=== PATIENT | male | born 1940 | race Caucasian/White ===

== ENCOUNTER 2017-12-28 13:26 | Inpatient (IN) ==
--- NOTE | 2017-12-27 18:08 | Discharge Summary ---
<Danni Delgado E - Last Filed: 12/27/17 18:05> Date of Encounter: 12/27/17 - Discharge Diagnosis (1) Status post total left knee replacement Priority: Primary Status: Acute (2) Arthritis of left knee Priority: Primary Status: Chronic (3) HTN (hypertension) Priority: Secondary Status: Chronic Qualifiers: Hypertension type: unspecified Qualified Code(s): I10 - Essential (primary ) hypertension (4) CAD (coronary artery disease) Priority: Secondary Status: Chronic Qualifiers: Coronary Disease-Associated Artery/Lesion type: unspecified vessel or lesion type [place] vs. transplanted heart: unspecified whether marshall or transplanted heart Associated angina: angina presence unspecified Qualified Code(s): I25.10 - Atherosclerotic heart disease of marsh[place] coronary artery without angina pectoris (5) History of coronary artery stent placement Priority: Secondary Status: Chronic (6) Carotid artery disease Priority: Secondary Status: Chronic Qualifiers: Laterality: unspecified laterality Qualified Code(s): I77.9 - Disorder of arteries and arterioles, unspecified (7) CKD (chronic kidney disease) Priority: Secondary Status: Chronic Qualifiers: Chronic kidney disease stage: stage 3 (moderate) Qualified Code(s): N18.3 - Chronic kidney disease, stage 3 (moderate) (8) Chronic atrial fibrillation Priority: Secondary Status: Chronic (9) Gout Priority: Secondary Status: Chronic Qualifiers: Gout site: unspecified site Gout etiology: unspecified cause Chronicity: unspecified Qualified Code(s): M10.9 - Gout, unspecified (10) History of CHF (congestive heart failure) Priority: Secondary Status: Chronic (11) History of pulmonary hypertension Priority: Secondary Status: Chronic (12) History of TIA (transient ischemic attack) Priority: Secondary Status: Chronic (13) alf current use of anticoagulant Status: Acute (14) Insulin dependent diabetes mellitus Priority: Secondary Status: 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 Camlio is a 77 year old male - Time Spent with Patient Total time spent providing and/or coordinating discharge services: - Discharge Medications Prescriptions: Oxycodone HCl 5 mg PO Q6H PRN 7 Days #28 tablet PRN Reason: Severe Pain Home Medications: Metoprolol XL (24 HR) Succ [Toprol Xl] 50 mg PO DAILY 08/03/15 [History] Nitroglycerin 0.4 mg SL Q5MIN PRN #30 tab.subl 08/04/15 [Rx] Cholecalciferol (D-3) [Vitamin D] 5,000 unit PO DAILY 03/31/17 [History] [place]-3/Dha/Epa/Fish Oil [Fish Oil 1,000 mg Softgel] 2 each PO BID 03/31/17 [ History] Oxycodone HCl 5 mg PO Q6H PRN 7 Days #28 tablet 12/27/17 [Rx] Allopurinol [Zyloprim] 300 mg PO HS 12/28/17 [History] Aspirin Enteric Coated [Aspirin EC] 81 mg PO DAILY 12/28/17 [History] Benazepril HCl [Lotensin] 20 mg PO DAILY 12/28/17 [History] Enoxaparin [Lovenox] 120 mg SQ Q12H 12/28/17 [History] Insulin Glargine [Lantus] 30 unit SQ QAM 12/28/17 [History] Insulin Glargine [Lantus] 50 unit SQ QPM 12/28/17 [History] Insulin LISPRO [HumaLOG] 15 - 20 unit SQ TID 12/28/17 [History] Latanoprost [Xalatan] 1 drop OP HS 12/28/17 [History] Meclizine [Antivert] 12.5 mg PO DAILY PRN 12/28/17 [History] Warfarin Sodium 6 mg PO SUTUWETHFRSA 12/28/17 [History] Warfarin [Coumadin] 3 mg PO MO 12/28/17 [History] cloNIDine HCl [Clonidine HCl] 0.3 mg PO BID 12/28/17 [History] Allergies/Adverse Reactions: 3 Allergy/AdvReac Type Severity Reaction Status Date / Time insulin lispro [From Humalog] Allergy Itching Verified 12/21/17 08:55 rosuvastatin [From Crestor] Allergy LEGS HURT Verified 12/28/17 14:31 Primary care physician: Doc Salazar DO - Patient Status Disposition: Home, Self-Care Condition: Good - Discharge Instructions Follow Up With: Doc Salazar DO [Primary Care Provider] - <Jayesh Avina - Last Filed: 12/29/17 06:17> Orders not resulted at time of discharge: Pending orders 12/28/17 01:00 XR knee LT limited 1-2V [XR] Routine Hemoglobin and Hematocrit [HEME] Routine Date of Encounter: 12/29/17 Time of Encounter: 06:17 - Discharge Diagnosis (1) Atrial fibrillation with normal ventricular rate Priority: Secondary Status: Chronic (2) Insulin dependent diabetes mellitus Priority: Secondary Status: Chronic (3) HTN (hypertension) Priority: Secondary Status: Chronic Qualifiers: Hypertension type: unspecified Qualified Code(s): I10 - Essential (primary ) hypertension (4) HLD (hyperlipidemia) Priority: Secondary Status: Chronic Qualifiers: Hyperlipidemia type: unspecified Qualified Code(s): E78.5 - Hyperlipidemia , unspecified (5) CKD (chronic kidney disease) stage 3, GFR 30-59 ml/min Priority: Secondary Status: Chronic (6) CAD (coronary artery disease) Priority: Secondary Status: Chronic Qualifiers: Coronary Disease-Associated Artery/Lesion type: [place] artery [place] vs. transplanted heart: marshall heart Associated angina: with unstable angina Qualified Code(s): I25.110 - Atherosclerotic heart disease of [place] coronary artery with unstable angina pectoris (7) HTN (hypertension) Priority: Secondary Status: Chronic Qualifiers: Hypertension type: unspecified Qualified Code(s): I10 - Essential (primary ) hypertension (8) History of coronary artery stent placement Priority: Secondary Status: Chronic (9) Carotid artery disease Priority: Secondary Status: Chronic Qualifiers: Laterality: unspecified laterality Qualified Code(s): I77.9 - Disorder of arteries and arterioles, unspecified (10) Gout Priority: Secondary Status: Chronic Qualifiers: Gout site: unspecified site Gout etiology: unspecified cause Chronicity: unspecified Qualified Code(s): M10.9 - Gout, unspecified (11) History of CHF (congestive heart failure) Priority: Secondary Status: Chronic (12) History of pulmonary hypertension Priority: Secondary Status: Chronic (13) History of TIA (transient ischemic attack) Priority: Secondary Status: Chronic (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 Camilo is a 77 year old male Status post left total knee replacement The patient had an uneventful postoperative course. They received antibiotics and physical therapy and were discharged in stable condition. There will follow -up in the office in 2 weeks. - Time Spent with Patient Total time spent providing and/or coordinating discharge services: Primary care physician: Doc Salazar, Labs on day of discharge: Labs from last 24 hours 12/28/17 13:37 POC Glucose 171 H - Patient Status Functional capacity at discharge: uses cane/walker Overall status at discharge: patient is progressing back to baseline
--- NOTE | 2017-12-27 18:20 | Physician Discharge Referral ---
Home Health/Hosp Referral Info Transfer to: Home Health Attending Provider: Dr. Jayesh Avina - Diagnosis (1) Status post total left knee replacement Priority: Primary Status: Acute (2) Arthritis of left knee Priority: Primary Status: Chronic (3) HTN (hypertension) Priority: Secondary Status: Chronic (4) CAD (coronary artery disease) Priority: Secondary Status: Chronic (5) History of coronary artery stent placement Priority: Secondary Status: Chronic (6) Carotid artery disease Priority: Secondary Status: Chronic (7) CKD (chronic kidney disease) Priority: Secondary Status: Chronic (8) Chronic atrial fibrillation Priority: Secondary Status: Chronic (9) Gout Priority: Secondary Status: Chronic (10) History of CHF (congestive heart failure) Priority: Secondary Status: Chronic (11) History of pulmonary hypertension Priority: Secondary Status: Chronic (12) History of TIA (transient ischemic attack) Priority: Secondary Status: Chronic (13) half-way current use of anticoagulant Priority: Secondary Status: Acute (14) Insulin dependent diabetes mellitus Priority: Secondary Status: Chronic - Respiratory Orders Smoking Cessation: Smoking cessation has been advised. For more information, call the [place] Tobacco Quit Line at 8-360-CDNE-NOW. - Dressing/Wound Care Site: Left knee Type of Dressing/Treatments w/Frequency: Opsite placed. Keep dressing intact until first follow up appointment. If greater than 50% saturated, notify office, remove dressing and place appropriate dressing back in place. Leave Zipline intact. Opsite dressing is water resistant, not water-proof. OK to shower, but do not get dressing wet. - Diet/Nutrition Diet/Nutrition Orders: Regular - Activity Activity Orders: Up ad page, Ambulate, Chair, Walker Activity: List: Total Knee replacement Precautions x 6 weeks Apply cold therapy wrap 3-6x/day for 20 minutes at a time. Encourage ambulation throughout the day and incentive spirometer 10x/hour. Elevate affected extremity above heart as tolerated. Brace: Wear knee immobilizer at night x 2 weeks. - Services Needed Following services are medically necessary services: Nursing, Home Health Aide, Physical Therapy, Occupational Therapy - Transfer Medications Prescriptions: Oxycodone HCl 5 mg PO Q6H PRN 7 Days #28 tablet PRN Reason: Severe Pain Home Medications: Aspirin [Adult Low Dose Aspirin EC] 81 mg PO DAILY 08/03/15 [History] CloNIDine HCl [Kapvay] 0.1 mg PO BID 08/03/15 [History] Metoprolol XL (24 HR) Succ [Toprol Xl] 50 mg PO DAILY 08/03/15 [History] Atorvastatin [Lipitor] 40 mg PO HS #30 tablet 08/04/15 [Rx] Nitroglycerin 0.4 mg SL Q5MIN PRN #30 tab.subl 08/04/15 [Rx] Warfarin [Coumadin] 3 mg PO 1800 #30 tablet 08/04/15 [Rx] Cholecalciferol (D-3) [Vitamin D] 5,000 unit PO DAILY 03/31/17 [History] [place]-3/Dha/Epa/Fish Oil [Fish Oil 1,000 mg Softgel] 2 each PO BID 03/31/17 [ History] Oxycodone HCl/Acetaminophen [Percocet 5-325 mg Tablet] 1 each PO Q6H PRN [History] Oxycodone HCl 5 mg PO Q6H PRN 7 Days #28 tablet 12/27/17 [Rx] Allergies/Adverse Reactions: 3 Allergy/AdvReac Type Severity Reaction Status Date / Time insulin lispro [From Humalog] Allergy Itching Verified 12/21/17 08:55 rosuvastatin [From Crestor] Allergy Muscle Pain Verified 12/21/17 08:55 Certification: Further, I certify that my clinical findings support that this patient is homebound (i.e. absences from home require considerable and taxing effort and are for medical reasons or protestant services or infrequently or short duration when for other reasons) because: Homebound Reason: Post-surgery restriction and or conditions limit ability to leave home Attestation: My signature below is to certify that this patient is under my care and that I, or nurse practitioner, or a physician product development assistant working with me, has a face-to- face encounter with this patient.
--- NOTE | 2017-12-27 18:38 | Physician Discharge Referral ---
ExtendedCare Referral Info Transfer To: [facility] Provider in Charge: Dr. Jayesh Avina - Diagnosis (1) Status post total left knee replacement Priority: Primary Status: Acute (2) Arthritis of left knee Priority: Primary Status: Chronic (3) HTN (hypertension) Priority: Secondary Status: Chronic (4) CAD (coronary artery disease) Priority: Secondary Status: Chronic (5) History of coronary artery stent placement Priority: Secondary Status: Chronic (6) Carotid artery disease Priority: Secondary Status: Chronic (7) CKD (chronic kidney disease) Priority: Secondary Status: Chronic (8) Chronic atrial fibrillation Priority: Secondary Status: Chronic (9) Gout Priority: Secondary Status: Chronic (10) History of CHF (congestive heart failure) Priority: Secondary Status: Chronic (11) History of pulmonary hypertension Priority: Secondary Status: Chronic (12) History of TIA (transient ischemic attack) Priority: Secondary Status: Chronic (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 Priority: Secondary Status: Chronic (14) Insulin dependent diabetes mellitus Priority: Secondary Status: Chronic Expected Duration of Placement: less than 30 days Prognosis: Good Aware of Diagnosis: Patient Aware of Prognosis: Patient - Transfer Medications Home Medications: Metoprolol XL (24 HR) Succ [Toprol Xl] 50 mg PO DAILY 08/03/15 [History] Nitroglycerin 0.4 mg SL Q5MIN PRN #30 tab.subl 08/04/15 [Rx] Cholecalciferol (D-3) [Vitamin D] 5,000 unit PO DAILY 03/31/17 [History] [place]-3/Dha/Epa/Fish Oil [Fish Oil 1,000 mg Softgel] 2 each PO BID 03/31/17 [ History] Oxycodone HCl 5 mg PO Q6H PRN 7 Days #28 tablet 12/27/17 [Rx] Allopurinol [Zyloprim] 300 mg PO HS 12/28/17 [History] Aspirin Enteric Coated [Aspirin EC] 81 mg PO DAILY 12/28/17 [History] Benazepril HCl [Lotensin] 20 mg PO DAILY 12/28/17 [History] Enoxaparin [Lovenox] 120 mg SQ Q12H 12/28/17 [History] Insulin Glargine [Lantus] 30 unit SQ QAM 12/28/17 [History] Insulin Glargine [Lantus] 50 unit SQ QPM 12/28/17 [History] Insulin LISPRO [HumaLOG] 15 - 20 unit SQ TID 12/28/17 [History] Latanoprost [Xalatan] 1 drop OP HS 12/28/17 [History] Meclizine [Antivert] 12.5 mg PO DAILY PRN 12/28/17 [History] Warfarin Sodium 6 mg PO SUTUWETHFRSA 12/28/17 [History] Warfarin [Coumadin] 3 mg PO MO 12/28/17 [History] cloNIDine HCl [Clonidine HCl] 0.3 mg PO BID 12/28/17 [History] Allergies/Adverse Reactions: 3 Allergy/AdvReac Type Severity Reaction Status Date / Time rosuvastatin [From Crestor] Allergy LEGS HURT Verified 12/28/17 14:31 - Respiratory Orders Smoking Cessation: Smoking cessation has been advised. For more information, call the [employer] Tobacco Quit Line at 5-270-VMNT-NOW. - Lab Orders Lab Orders: Other (include drug levels w/frequency) (INR every 48 hours until therapeutic greater than 2.0. Last INR on 01/01 was 1.3.) - Ancillary Orders May use pressure relief devices daily prn, May go on BRENT w/family/respon democrat w /meds at nurse discretion PRN, May consult with Dentist, Biomedical Instrument Technician, Freelance Translator PRN - Mobility Orders Chair, Ambulate - Rehabiliation Orders Rehab Potential: Good Rehab Orders: Evaluation for Physical Therapy, Evaluation for Occupational Therapy Other: Total Knee replacement Precautions x 6 weeks Apply cold therapy wrap 3-6x/day for 20 minutes at a time. Encourage ambulation throughout the day and incentive spirometer 10x/hour. Elevate affected extremity above heart as tolerated. Brace: Wear knee immobilizer at night x 2 weeks. - Treatments Skin tear care topically daily PRN per policy List/Other: Opsite placed. Keep dressing intact until first follow up appointment. If greater than 50% saturated, notify office, remove dressing and place appropriate dressing back in place. Leave Zipline intact. Opsite dressing is water resistant, not water-proof. OK to shower, but do not get dressing wet. - Diet Orders Regular CERTIFICATION: I certify that the transfer of the above named patient to an Extended Care Facility is necessary for the continuing treatment of the diagnosis listed. The above information is true and accurate reflection of patient's current condition. Confidential - Redisclosure prohibited without a patient's written consent.
--- NOTE | 2017-12-28 13:35 | History & Physical Report ---
Date of Encounter: 12/28/17 Time of Encounter: 13:35 24 Hour HP Update - Instructions Instructions: If the History and Physical is less than 30 days old and was completed prior to A.M. admission and or procedure and has NOT been updated on calendar day of procedure please complete this update prior to performing procedure. - Update Patient reports changes in Medical Condition: No Changes in examination, assessment, or condition: No Changes in Medication: No Preop tests/diagnostics Reviewed: Yes Surgery Remains Indicated: Yes Consent for Planned Operative Procedure(s) Verified: Yes - Pre-Operative Checklist Preoperative Checklist Indicated: No Prophylactic Antibiotic Ordered: Yes Is VTE Prophylaxis Indicated?: Yes
[2017-12-28] MEDS ORDERED: CeFAZolin Syr 2,000MG/20 ML 2,000 MG/20 ML SYRINGE IVPB ONE (13:45)
[2017-12-28] MEDS ORDERED: Ringers Solution, Lactated 1,000 ML IVC SCH (13:45)
[2017-12-28] MEDS ORDERED: CEFAZOLIN IVP ONE (13:58)
[2017-12-28] MEDS ORDERED: WATER FOR INJ IVP ONE (13:58)
[2017-12-28] MEDS ORDERED: Metoprolol XL (24 HR) Succ 50 MG TAB.ER.24H PO SCH (14:30)
[2017-12-28] MEDS ORDERED: CloNIDine Patch 0.1 MG PATCH (WEEKLY) TD SCH (14:30)
[2017-12-28] MEDS ORDERED: Ethanol\\Acetic Acid\\Na Ace\\Ben 1,000 ML IRRIG.SOLN IR ONE (15:17)
--- NOTE | 2017-12-28 15:32 | Anesthesia Evaluation PreOp ---
Date of Encounter: 12/28/17 Time of Encounter: 15:30 - Past History Planned Operation: Left TKA Cardiac History: HTN, Hyperlipidemia, Arrhythmia (AFib off Coumadin 1 week), Cardiac Stent (Off), Other (PVD) Pulmonary History: MELLO Dx ROUSTABOUT HEAD History: TIA Other Medical History: Renal (CKD), Diabetes Type II, Other (MO) Anesthesia History: No Prior Anesthetic Complications Alcohol Use: none Drug use: none Medications and Allergies Metoprolol XL (24 HR) Succ [Toprol Xl] 50 mg PO DAILY 08/03/15 [History] Nitroglycerin 0.4 mg SL Q5MIN PRN #30 tab.subl 08/04/15 [Rx] Cholecalciferol (D-3) [Vitamin D] 5,000 unit PO DAILY 03/31/17 [History] [place]-3/Dha/Epa/Fish Oil [Fish Oil 1,000 mg Softgel] 2 each PO BID 03/31/17 [ History] Oxycodone HCl 5 mg PO Q6H PRN 7 Days #28 tablet 12/27/17 [Rx] Allopurinol [Zyloprim] 300 mg PO HS 12/28/17 [History] Aspirin Enteric Coated [Aspirin EC] 81 mg PO DAILY 12/28/17 [History] Benazepril HCl [Lotensin] 20 mg PO DAILY 12/28/17 [History] Enoxaparin [Lovenox] 120 mg SQ Q12H 12/28/17 [History] Insulin Glargine [Lantus] 30 unit SQ QAM 12/28/17 [History] Insulin Glargine [Lantus] 50 unit SQ QPM 12/28/17 [History] Insulin LISPRO [HumaLOG] 15 - 20 unit SQ TID 12/28/17 [History] Latanoprost [Xalatan] 1 drop OP HS 12/28/17 [History] Meclizine [Antivert] 12.5 mg PO DAILY PRN 12/28/17 [History] Warfarin Sodium 6 mg PO SUTUWETHFRSA 12/28/17 [History] Warfarin [Coumadin] 3 mg PO MO 12/28/17 [History] cloNIDine HCl [Clonidine HCl] 0.3 mg PO BID 12/28/17 [History] 3 Allergy/AdvReac Type Severity Reaction Status Date / Time insulin lispro [From Humalog] Allergy Itching Verified 12/21/17 08:55 rosuvastatin [From Crestor] Allergy LEGS HURT Verified 12/28/17 14:31 - Meds/Allergy Pre-op Review Medications Reviewed: Yes Allergies Reviewed: Yes Beta Blockers on Current Med List: Yes (Metoprolol today 1455) Anesthesia Results - Labs Laboratory Tests 12/21/17 12/21/17 12/21/17 08:55 08:55 08:55 Hgb 16.9 Hct 49.0 Plt Count 185 PT 24.3 H INR 2.2 Sodium 137 Potassium 4.0 BUN 17 Creatinine 1.20 - Imaging EKG: report reviewed (AFib) Additional studies: ECHO 2016 EF 60%, no pulm htn Anesthesia Exam Vital Signs/O2 Sat/Glucose, Most Current Temp Pulse Resp BP Pulse Ox 12/28/17 13:50 98.0 F 99 18 209/126 95 12/28/17 13:48 98.0 F 99 18 209/126 95 Height: 5'9 Weight: 273 lbs NPO (# of Hours): MN Pain Scale: 0 - HEENT Pupil (Motor): Pupils equal, EOMI Mallampati: III Denture Type: Upper: Complete Oral Opening: Less than or equal to 3 - ROUSTABOUT HEAD LOC: Oriented ROUSTABOUT HEAD Motor: Normal RUE, Normal LUE, Normal RLE, Normal LLE, Normal Face ROUSTABOUT HEAD Sensory: Normal: RUE, LUE, RLE, LLE, Face - Cardiac Rhythm: Regular Murmur: None JVD: No Carotid Bruit: No - Pulmonary Breath Sounds: bilateral Clear Respiratory Effort: Symmetrical Anesthesia Assess/Plan ASA Score: 3 (HTN AFib CAD DM CKD) Modified [place] Scale for Level of Consciousness: Cooperative, oriented, and tranquil Anesthetic Plan: General, Regional Monitoring Plan: Standard Monitors Recovery Plan: PACU (Discussed GA and Adductor Canal/IPACK, agrees to proceed)
[2017-12-28] MEDS ORDERED: Bupivacaine/Clonidine Syringe 1 EACH SYRINGE ONE (15:46)
[2017-12-28] MEDS ORDERED: Lidocaine -MPF 2% 5 ML VIAL ONE (15:46)
[2017-12-28] MEDS ORDERED: *HR* Midazolam HCl 2 MG/2 ML VIAL ONE (15:47)
[2017-12-28] MEDS ORDERED: *HR* FentaNYL (PF) 100 MCG/2 ML VIAL ONE ×2 (15:47→16:48)
[2017-12-28] MEDS ORDERED: ROPIVACAINE HCL/PF 0.5% 30 ML VIAL ONE (15:50)
[2017-12-28] MEDS ORDERED: *HR* Succinylcholine 200 MG/10 ML VIAL IVP ONE (16:19)
[2017-12-28] MEDS ORDERED: Ondansetron 4 MG/2 ML VIAL ONE (16:20)
[2017-12-28] MEDS ORDERED: *HR* Propofol 200 MG/20 ML VIAL IVP ONE (16:20)
[2017-12-28] MEDS ORDERED: Lidocaine -MPF 2% 2 ML VIAL ONE (16:20)
[2017-12-28] MEDS ORDERED: EPHEDrine 50 MG/ML VIAL ONE (16:25)
[2017-12-28] MEDS ORDERED: *HR* PHENYLEPHRINE 1,000 MCG/10 ML SYRINGE IVP ONE (16:25)
[2017-12-28] MEDS ORDERED: Esmolol 100 MG/10 ML VIAL IVP ONE (16:30)
[2017-12-28] MEDS ORDERED: *HR* Metoprolol 5 MG/5 ML VIAL IVP ONE (16:38)
--- NOTE | 2017-12-28 17:13 | Anesthesia Procedures ---
Date of Encounter: 12/28/17 Time of Encounter: 16:12 Procedures: Anesthesia - Nerve Block Procedure Date: 12/28/17 Time: 16:12 Surgical Procedure: left robo total knee Checklist: Correct Patient Identifier, Correct procedure, History checked Correct side: Left Blood Thinner: No Monitor Applied: BP, Pulse Oximetry Indication: Post Op Analgesia Pre-op Neuro Deficits: No Block Type: Other (adductor canal and I-pack) Catheter placed: No Sterile Technique: Yes Ultrasound used: Yes Anatomy identified: Yes Visual spread of Local: Yes Neuro Stimulation: No Blood on Needle Aspiration: No Smooth Injection of Local: Yes Pain with Injection of Local: No Prep: Chlorhexadine Needle: 22 x 50 mm Stimuplex Local: 0.25% Bupivicaine w/Clonidine 20 mcg/cc (40), Ropivacaine (30ml 0.5% rop plain ) Volume (cc): 70 Number of Attempts: 1 Complications: None/effective block Vitals: vss though out, block per request of surgeon.
[2017-12-28] MEDS ORDERED: *HR* Labetalol 100 MG/20 ML MDV IVP PRN (17:15)
[2017-12-28] MEDS ORDERED: MORPHINE SUL Oral CONC 10 MG/0.5 ML ORAL.SYG SL PRN (17:15)
[2017-12-28] MEDS ORDERED: *HR* OxyCODONE Immed Rel 5 MG TABLET PO PRN (17:15)
--- NOTE | 2017-12-28 17:27 | Orthopedic Operative Note ---
Date of procedure: 12/28/17 Pre-op diagnosis: Left knee arthritis Post-op diagnosis: same Procedure: Procedure: Left robotic-assisted Total knee replacement Estimated blood loss:500 cc Hardware: Metal and polyethylene replacement. Tessie Femur: 5 Tibia: 5 TS insert: 9 Patella: 39 Exam Under anesthesia: 9 degree loss of full extension 1 degrees varus as calculated by the robot full flexion and no instability Procedural Notes: Grade 4 arthritic changes all 3 compartments. Operative procedure: The patient was brought to the operating room and placed on the operating room table. After general anesthesia was administered the operative knee was examined. Findings were noted in the exam under anesthesia. The operative extremity was prepped and draped in sterile surgical fashion. The patient received IV antibiotics prior to skin incision. A standard midline incision was made centered over the patella. The incision was made through the skin and subcutaneous tissue. A medial parapatellar tendon approach was performed. Care was taken to preserve tissue along the medial aspect of the patella. And to protect the patella tendon. The deep MCL was released off the medial tibia. The infra patella fat pad was excised. The patella was everted and cut was made at the level of the insertion of the quadriceps and patella tendon. The patella was sized the guide was seated and the lug holes are drilled. Knee was brought into flexion. Patient noted to have grade 4 arthritic changes all 3 compartments. Steinmann pins were placed in the tibia and the femur for the tibial and femoral arrays respectively. Checkpoints were also placed in the tibia and the femur for calculation purposes. The knee including the femur and the tibial registered. Osteophytes, ACL and PCL were excised at this point. Extension and flexion were assessed with a valgus stress components were adjusted on the computer to balance the knee. Femoral cuts were made first with robotic assistance, these included the anterior cut posterior cuts chamfer cuts. Tibial cut was then performed with robotic assistance as well. Bone fragments were removed, as well as the medial and lateral meniscus. The size 5 femoral guide was seated box cut was made lug holes are drilled. The size 5 tibial tray was seated and prepared with the fin cutter. Trial reduction with the 9 TS Katherine revealed extension of 0 degree and 2 degree varus full flexion. No varus valgus instability. Trial reduction revealed excellent patella tracking. All trial components were removed all bony surfaces were irrigated. The Tibia was seated followed by the femur, The Katherine size 9 was seated and secured patella. Patient had similar findings for motion and stability. The knee was closed by the PA. The knee was then irrigated out with 2 L of pulse irrigation. The extensor mechanism was closed with #2 FiberWire suture and #2 PDS suture. The subcutaneous tissue was then irrigated and closed deep with #1 PDS suture superficially with 0 PDS suture and skin was closed with zip tie The patient was then placed in a sterile dressing and a postoperative brace extubated and transferred to recovery room in stable condition. Anesthesia: GETA Surgeon: Jayesh Avina Was there an general assistant present: Yes Facility Service Manager: Alida Pizano Estimated blood loss (cc): 500 Condition: stable Disposition: PACU
[2017-12-28] MEDS ORDERED: *HR* Enoxaparin 30 MG/0.3 ML SYRINGE SQ SCH (18:00)
--- NOTE | 2017-12-28 18:35 | Anesthesia Evaluation Post Op ---
Date of Encounter: 12/28/17 Time of Encounter: 18:35 - Vital Signs Vital Signs: Vital Signs/O2 Sat/Glucose, Most Current Temp Pulse Resp BP Pulse Ox 12/28/17 18:20 90 16 178/90 97 12/28/17 18:10 86 16 111/75 95 12/28/17 18:00 97.9 F 91 16 182/94 97 12/28/17 16:16 101 16 186/105 99 12/28/17 16:01 97 14 199/113 99 12/28/17 15:45 88 16 204/93 99 - Lungs Lungs: Clear Ascult./Percussion - Airway Airway: Non-obstructed - Cardiovascular Regular Rate - Mental Status Mental Status: Alert & Oriented, Answers Appropriately - Pain Pain Scale: 0 - Nausea Vomiting Nausea Vomiting: Not Present - Hydration Hydration: Ice chips - Discharge PostOp Status: Transfer Patient to floor
[2017-12-28] MEDS ORDERED: Dextrose Gel 15 GM/37.5 ML TUBE PO PRN ×2 (18:41)
[2017-12-28] MEDS ORDERED: traMADol 50 MG TABLET PO PRN (18:41)
[2017-12-28] MEDS ORDERED: Temazepam 15 MG CAPSULE PO PRN (18:41)
[2017-12-28] MEDS ORDERED: Nitroglycerin 0.4 MG TAB.SUBL SL PRN (18:41)
[2017-12-28] MEDS ORDERED: MOM Conc 10 ML UD.LIQ PO PRN (18:41)
[2017-12-28] MEDS ORDERED: *HR* Warfarin 3 MG TABLET PO SCH (18:41)
[2017-12-28] MEDS ORDERED: D5% in Water 1,000 ML IVC PRN (18:41)
[2017-12-28] MEDS ORDERED: Naloxone 0.4 MG/ML INJ IVP PRN (18:41)
[2017-12-28] MEDS ORDERED: *HR* Dextrose 50 % in Water (Syg) 50 ML SYRINGE IVP PRN (18:41)
[2017-12-28] MEDS ORDERED: Sennosides 8.6 MG TABLET PO PRN (18:41)
[2017-12-28] MEDS ORDERED: Ondansetron 4 MG/2 ML VIAL IVP PRN (18:41)
[2017-12-28 18:49] LABS: Hematocrit 47.7 % (37.5-50.1); Hemoglobin 16.9 g/dL (12.9-16.9)
[2017-12-28] MEDS: Insulin LISPRO 300 UNITS/3 ML VIAL SQ SCH ×2 (20:09→21:24)
[2017-12-28] MEDS: *HR* OxyCODONE Immed Rel 5 MG TABLET PO PRN (20:16)
[2017-12-28] MEDS: cloNIDine HCl 0.1 MG TABLET PO SCH (20:16)
[2017-12-28] MEDS: Ringers Solution, Lactated 1,000 ML IVC SCH (20:17)
[2017-12-28] MEDS: Latanoprost 2.5 ML BOTTLE BOTH EYES SCH (20:22)
[2017-12-28] MEDS: (Omega-3/Dha/Epa/Fish Oil [Fish Oil 1,000 Mg Softgel] PO SCH (20:29)
[2017-12-28] MEDS: Insulin DETEMIR 100 UNIT/ML X5UNITS SQ SCH (21:25)
[2017-12-28] MEDS: *HR* OxyCODONE/APAP 5/325 TABLET PO PRN (22:15)
[2017-12-29] MEDS: *HR* OxyCODONE Immed Rel 5 MG TABLET PO PRN ×3 (00:58→20:28)
[2017-12-29 01:05] LABS: Hematocrit 42.5 % (37.5-50.1)
[2017-12-29 01:06] LABS: Hemoglobin 14.6 g/dL (12.9-16.9)
[2017-12-29 01:26] LABS: Calcium 8.6 mg/dL (8.6-10.3); Potassium 4.2 mEq/L (3.5-5.1)
[2017-12-29] MEDS: *HR* OxyCODONE/APAP 5/325 TABLET PO PRN ×2 (03:40→17:07)
[2017-12-29] MEDS: *HR* Enoxaparin 30 MG/0.3 ML SYRINGE SQ SCH ×2 (05:42→17:02)
--- NOTE | 2017-12-29 06:18 | Orthopedics Progress Note ---
Date of Encounter: 12/29/17 Time of Encounter: 06:17 - Assessment and Plan (1) Atrial fibrillation with normal ventricular rate Current Visit: No Status: Chronic (2) Insulin dependent diabetes mellitus Current Visit: No Status: Chronic (3) HTN (hypertension) Current Visit: No Status: Chronic Qualifiers: Hypertension type: unspecified Qualified Code(s): I10 - Essential (primary ) hypertension (4) HLD (hyperlipidemia) Current Visit: No Status: Chronic Qualifiers: Hyperlipidemia type: unspecified Qualified Code(s): E78.5 - Hyperlipidemia , unspecified (5) CKD (chronic kidney disease) stage 3, GFR 30-59 ml/min Current Visit: No Status: Chronic (6) CAD (coronary artery disease) Current Visit: No Status: Chronic Qualifiers: Coronary Disease-Associated Artery/Lesion type: [place] artery [place] vs. transplanted heart: [place] heart Associated angina: angina presence unspecified Qualified Code(s): I25.10 - Atherosclerotic heart disease of [place] coronary artery without angina pectoris (7) HTN (hypertension) Current Visit: No Status: Chronic Qualifiers: Hypertension type: unspecified Qualified Code(s): I10 - Essential (primary ) hypertension (8) History of coronary artery stent placement Current Visit: No Status: Chronic (9) Carotid artery disease Current Visit: No Status: Chronic Qualifiers: Laterality: unspecified laterality Qualified Code(s): I77.9 - Disorder of arteries and arterioles, unspecified (10) Gout Current Visit: No Status: Chronic Qualifiers: Gout site: unspecified site Gout etiology: unspecified cause Chronicity: unspecified Qualified Code(s): M10.9 - Gout, unspecified (11) History of CHF (congestive heart failure) Current Visit: No Status: Chronic (12) History of pulmonary hypertension Current Visit: No Status: Chronic (13) History of TIA (transient ischemic attack) Current Visit: No Status: Chronic (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 Afebrile vital signs stable. Operative extremity: Neurovascularly intact Dressing clean dry and intact Calves nontender Assessment and plan: Continue with postoperative care Hematocrit 42 discharged today Objective Vital signs: Vital Signs Temp Pulse Resp BP Pulse Ox 12/29/17 04:28 98.5 F 92 17 190/82 94 12/28/17 23:15 98.9 F 92 16 168/78 98 12/28/17 22:20 98.9 F 92 16 168/78 98 12/28/17 21:20 98.9 F 95 16 195/91 100 12/28/17 20:20 98.5 F 95 16 174/87 97 12/28/17 19:50 98.5 F 104 18 182/85 98 12/28/17 19:20 98.1 F 95 20 171/81 95 12/28/17 18:30 97.6 F 93 16 176/95 97 12/28/17 18:20 90 16 178/90 97 12/28/17 18:10 86 16 111/75 95 12/28/17 18:00 97.9 F 91 16 182/94 97 12/28/17 16:16 101 16 186/105 99 12/28/17 16:01 97 14 199/113 99 12/28/17 15:45 88 16 204/93 99 12/28/17 13:50 98.0 F 99 18 209/126 95 12/28/17 13:48 98.0 F 99 18 209/126 95 Intake and Output 12/28/17 12/28/17 12/29/17 15:59 23:59 07:59 Intake Total 250 / 250 Output Total 500 / 500 725 / 725 Balance -250 / -250 -725 / -725 Intake: IV Fluids 100 / 100 Ancef 2,000 MG In 0.9 % Sodium 100 / 100 Chloride 100 ML @ 200 mls/hr IVPB Q8HR [facility] Rx#:[id number] Oral 150 / 150 Output: Urine 725 / 725 Estimated Blood Loss 500 / 500 Other: Meal [place]/crackers Percent of Meal Consumed 100% Weight 123.831 kg Blood Glucose* 171 250 - Labs CBC & BMP: 12/29/17 00:45 12/29/17 00:45 Labs: Abnormal lab results Sodium 132 mEq/L (136-145) L 12/29/17 00:45 Carbon Dioxide 19 mEq/L (23-29) L 12/29/17 00:45 Creatinine 1.45 mg/dL (0.70-1.30) H 12/29/17 00:45 Est GFR ( Amer) 57 (> 60) L 06/19/18 00:45 Est GFR (Non-Af Amer) 47 (> 60) L 12/29/17 00:45 Glucose 337 mg/dL (70-105) H 12/29/17 00:45 POC Glucose 250 mg/dL (70-99) H 12/28/17 21:20 - VTE Documentation of Mechanical Device: Venous foot pump, device Consult Discharge Plan - Plan Referrals: Doc Salazar DO [Primary Care Provider] - Prescriptions: Oxycodone HCl 5 mg PO Q6H PRN 7 Days #28 tablet PRN Reason: Severe Pain
[2017-12-29] MEDS: cloNIDine HCl 0.1 MG TABLET PO SCH ×2 (07:47→20:28)
[2017-12-29] MEDS: Metoprolol XL (24 HR) Succ 50 MG TAB.ER.24H PO SCH (07:47)
[2017-12-29] MEDS: Lisinopril 20 MG TABLET PO SCH (07:47)
[2017-12-29] MEDS: Aspirin Enteric Coated 81 MG Tablet PO SCH (07:47)
[2017-12-29] MEDS: Cholecalciferol (D-3) 1,000 UNIT TABLET PO SCH (07:47)
[2017-12-29] MEDS: Insulin LISPRO 300 UNITS/3 ML VIAL SQ SCH ×4 (07:48→21:33)
[2017-12-29] MEDS: (Omega-3/Dha/Epa/Fish Oil [Fish Oil 1,000 Mg Softgel] PO SCH ×2 (08:03→20:35)
[2017-12-29] MEDS: Ringers Solution, Lactated 1,000 ML IVC SCH (08:03)
[2017-12-29] MEDS: Insulin DETEMIR 100 UNIT/ML X5UNITS SQ SCH ×2 (08:03→17:03)
--- NOTE | 2017-12-29 11:26 | Event Note ---
Date of Encounter: 12/29/17 Time of Encounter: 11:24 PCR- POD#1 status post left total knee robotic Dr. Avina 12/28/17 PCR - Patient seen at bedside. Labwork and medications reviewed. H/H 14.6/42.5 Coumadin resumed 12/28/17 - INR not yet performed - will check prior to patient' s discharge for baseline. order placed. vital signs reviewed - demonstrating elevated BP - will check with nursing regarding med administration/pain contrl.. Pain control: Adequate Participating in PT. Recommending SNF/ECF - Dr. Avina made aware of need to convert to inpatient status. All questions and concerns addressed. Educated on use of incentive spirometer, ambulation, and hydration. Patient educated on post-operative restrictions and care. Addressed: see above. D/C plan: ECF
--- NOTE | 2017-12-29 11:46 | Orthopedics Progress Note ---
Date of Encounter: 12/29/17 Time of Encounter: 11:45 - Assessment and Plan (1) Atrial fibrillation with normal ventricular rate Current Visit: No Status: Chronic (2) Insulin dependent diabetes mellitus Current Visit: No Status: Chronic (3) HTN (hypertension) Current Visit: No Status: Chronic Qualifiers: Hypertension type: unspecified Qualified Code(s): I10 - Essential (primary ) hypertension (4) HLD (hyperlipidemia) Current Visit: No Status: Chronic Qualifiers: Hyperlipidemia type: unspecified Qualified Code(s): E78.5 - Hyperlipidemia , unspecified (5) CKD (chronic kidney disease) stage 3, GFR 30-59 ml/min Current Visit: No Status: Chronic (6) CAD (coronary artery disease) Current Visit: No Status: Chronic Qualifiers: Coronary Disease-Associated Artery/Lesion type: [place] artery [place] vs. transplanted heart: [place] heart Associated angina: angina presence unspecified Qualified Code(s): I25.10 - Atherosclerotic heart disease of [place] coronary artery without angina pectoris (7) HTN (hypertension) Current Visit: No Status: Chronic Qualifiers: Hypertension type: unspecified Qualified Code(s): I10 - Essential (primary ) hypertension (8) History of coronary artery stent placement Current Visit: No Status: Chronic (9) Carotid artery disease Current Visit: No Status: Chronic Qualifiers: Laterality: unspecified laterality Qualified Code(s): I77.9 - Disorder of arteries and arterioles, unspecified (10) Gout Current Visit: No Status: Chronic Qualifiers: Gout site: unspecified site Gout etiology: unspecified cause Chronicity: unspecified Qualified Code(s): M10.9 - Gout, unspecified (11) History of CHF (congestive heart failure) Current Visit: No Status: Chronic (12) History of pulmonary hypertension Current Visit: No Status: Chronic (13) History of TIA (transient ischemic attack) Current Visit: No Status: Chronic (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 Current Visit: No Status: Chronic Subjective Interval history: Patient being evaluated by PT is a 3 person assist will require extended care facility for recovery patient has multiple medical problems is unsafe to go home will be converted to an admission status to work on transfer Objective Vital signs: Vital Signs Temp Pulse Resp BP Pulse Ox 12/29/17 11:18 98 F 92 20 158/74 90 12/29/17 07:08 97.6 F 98 22 114/84 92 12/29/17 04:28 98.5 F 92 17 190/82 94 12/28/17 23:15 98.9 F 92 16 168/78 98 12/28/17 22:20 98.9 F 92 16 168/78 98 12/28/17 21:20 98.9 F 95 16 195/91 100 12/28/17 20:20 98.5 F 95 16 174/87 97 12/28/17 19:50 98.5 F 104 18 182/85 98 12/28/17 19:20 98.1 F 95 20 171/81 95 12/28/17 18:30 97.6 F 93 16 176/95 97 12/28/17 18:20 90 16 178/90 97 12/28/17 18:10 86 16 111/75 95 12/28/17 18:00 97.9 F 91 16 182/94 97 12/28/17 16:16 101 16 186/105 99 12/28/17 16:01 97 14 199/113 99 12/28/17 15:45 88 16 204/93 99 12/28/17 13:50 98.0 F 99 18 209/126 95 12/28/17 13:48 98.0 F 99 18 209/126 95 Intake and Output 12/28/17 12/29/17 12/29/17 23:59 07:59 15:59 Intake Total 250 / 250 1060 / 1060 Output Total 500 / 500 725 / 725 Balance -250 / -250 -725 / -725 1060 / 1060 Intake: IV Fluids 100 / 100 700 / 700 Lactated Ringers 1,000 ML @ 75 700 / 700 mls/hr IVC .[id number] [facility] Rx#: [id number] Ancef 2,000 MG In 0.9 % Sodium 100 / 100 Chloride 100 ML @ 200 mls/hr IVPB Q8HR [facility] Rx#:[id number] Oral 150 / 150 360 / 360 Output: Urine 725 / 725 Estimated Blood Loss 500 / 500 Other: Meal [place]/crackers Breakfast Percent of Meal Consumed 100% 90% Blood Glucose* 250 256 366 - Labs CBC & BMP: 12/29/17 00:45 12/29/17 00:45 Labs: Abnormal lab results Sodium 132 mEq/L (136-145) L 12/29/17 00:45 Carbon Dioxide 19 mEq/L (23-29) L 12/29/17 00:45 Creatinine 1.45 mg/dL (0.70-1.30) H 12/29/17 00:45 Est GFR ( Amer) 57 (> 60) L 12/29/17 00:45 Est GFR (Non-Af Amer) 47 (> 60) L 12/29/17 00:45 Glucose 337 mg/dL (70-105) H 12/29/17 00:45 POC Glucose 250 mg/dL (70-99) H 12/28/17 21:20 - VTE Documentation of Mechanical Device: Venous foot pump, device Consult Discharge Plan - Plan Additional Instructions: Discharge Instructions: Total Knee Replacement Please call [facility] ([phone]), your Primary Care Physician, or report to the Emergency Room if you have any of the following symptoms: Nausea, vomiting, fever greater that 101.5, swelling, chest pain, shortness of breath, increased pain/redness/drainage/odor for your incision site, numbness/ tingling, or any other concerning symptoms. ACTIVITY:Weight-bearing as tolerated. You may progress off support (crutches or walker) as tolerated. MEDICATIONS: Upon discharge resume your home medications. Take all the medications as prescribed. Take a stool softener if taking narcotic pain medications. Stool softeners are only effective if you drink enough fluids. Drink 6-8 glass of water or fluids a day, unless this is not allowed for another health problem. Despite using stool softeners, if you haven't had a bowel movement in 3 days, please switch to a gentle laxative. Gentle laxatives are sold over the counter. You should have a bowel movement within 24 hours, if not call the office. You will be discharged from the hospital with a prescription for pain medication. You are encouraged to decrease the use of narcotic pain medication as tolerated. Should you require a refill, please call the office. [facility] prescribes narcotic pain medication for only 4-6 weeks after surgery. If you require pain medication beyond this time period, you may be referred to your Primary Care Physician or to the Pain Clinic for further evaluation. Plan ahead for refills on pain medication as many narcotics either need to be picked up at the office or mailed. It is best to call 48-72 hours in advance of needing a prescription refill so you don't run out of medication. To help control the post-operative pain, you may take NSAIDs (Aleve,Advil, Motrin, Ibuprofen, Naprosyn) or Tylenol as prescribed on the bottle in addition to the pain medication. ANTICOAGULATION (blood thinners): Continue your Aspirin, Lovenox or Coumadin as prescribed to help prevent a blood clot in the leg or in the lungs. As long as your incision remains dry and you tolerate the NSAIDs (Aleve, Advil, Motrin, ibuprofen, naprosyn), it is OK to use the NSAIDS while you are taking your anticoagulation medication. Should your incision start to drain, stop the NSAID and contact our office. Common symptoms of blood clot in the legs include: localized pain, swelling, calf tenderness, redness or discoloration of the skin. Blood clot in the lung symptoms include: shortness of breath, rapid pulse, sweating, and chest pain that worsens with deep breathing, coughing up blood, lightheadedness, feelings of anxiety. If you experience any of these symptoms notify your physician immediately, go to the emergency room, or if having trouble breathing, call 911. WOUND CARE: Leave the dressing on for 7 to 10days. You may change the dressing if it becomes saturated greater than 50%. Do not get the dressing wet at anytime. Wash your hands with antibacterial soap, rinse and dry prior to any wound care. If you have keenan the visiting nurse or rehab facility can remove the stapes 10-14 days after surgery and place steri-strips across the wound. Leave the steri-strips in place until they fall off on their won. You may let water from the shower run on top of the steri-strips. If you do not have a visiting nurse or rehab facility, you will need to return to the office at 10-14 days for the keenan to be removed. If you have itching or redness around the dressing call the office. FOLLOW-UP: Please follow up with your surgeon in the orthopedic clinic in 4 weeks from the day of surgery. If you have keenan that need to be removed, you will need to come back to the office in 10-14 days from the day of surgery. Referrals: Doc Salazar DO [Primary Care Provider] - Prescriptions: Oxycodone HCl 5 mg PO Q6H PRN 7 Days #28 tablet PRN Reason: Severe Pain
[2017-12-29 12:14] LABS: INR 1.2; Prothrombin Time 12.9 Seconds (9.4-12.1)
[2017-12-29] MEDS: *HR* Warfarin 3 MG TABLET PO SCH (17:02)
[2017-12-29] MEDS: Latanoprost 2.5 ML BOTTLE BOTH EYES SCH (20:27)
[2017-12-30 01:22] LABS: Hematocrit 37.8 % (37.5-50.1)
[2017-12-30 01:37] LABS: Calcium 8.9 mg/dL (8.6-10.3); Potassium 4.4 mEq/L (3.5-5.1)
[2017-12-30] MEDS: *HR* OxyCODONE Immed Rel 5 MG TABLET PO PRN ×2 (01:40→16:56)
[2017-12-30] MEDS: *HR* OxyCODONE/APAP 5/325 TABLET PO PRN (05:11)
[2017-12-30] MEDS: *HR* Enoxaparin 30 MG/0.3 ML SYRINGE SQ SCH ×2 (05:11→16:54)
--- NOTE | 2017-12-30 06:25 | Orthopedics Progress Note ---
Date of Encounter: 12/30/17 Time of Encounter: 06:25 - Assessment and Plan (1) Atrial fibrillation with normal ventricular rate Current Visit: No Status: Chronic (2) Insulin dependent diabetes mellitus Current Visit: No Status: Chronic (3) HTN (hypertension) Current Visit: No Status: Chronic Qualifiers: Hypertension type: unspecified Qualified Code(s): I10 - Essential (primary ) hypertension (4) HLD (hyperlipidemia) Current Visit: No Status: Chronic Qualifiers: Hyperlipidemia type: unspecified Qualified Code(s): E78.5 - Hyperlipidemia , unspecified (5) CKD (chronic kidney disease) stage 3, GFR 30-59 ml/min Current Visit: No Status: Chronic (6) CAD (coronary artery disease) Current Visit: No Status: Chronic Qualifiers: Coronary Disease-Associated Artery/Lesion type: [place] artery [place] vs. transplanted heart: [place] heart Associated angina: angina presence unspecified Qualified Code(s): I25.10 - Atherosclerotic heart disease of [place] coronary artery without angina pectoris (7) HTN (hypertension) Current Visit: No Status: Chronic Qualifiers: Hypertension type: unspecified Qualified Code(s): I10 - Essential (primary ) hypertension (8) History of coronary artery stent placement Current Visit: No Status: Chronic (9) Carotid artery disease Current Visit: No Status: Chronic Qualifiers: Laterality: unspecified laterality Qualified Code(s): I77.9 - Disorder of arteries and arterioles, unspecified (10) Gout Current Visit: No Status: Chronic Qualifiers: Gout site: unspecified site Gout etiology: unspecified cause Chronicity: unspecified Qualified Code(s): M10.9 - Gout, unspecified (11) History of CHF (congestive heart failure) Current Visit: No Status: Chronic (12) History of pulmonary hypertension Current Visit: No Status: Chronic (13) History of TIA (transient ischemic attack) Current Visit: No Status: Chronic (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 Afebrile vital signs stable. Operative extremity: Neurovascularly intact Dressing clean dry and intact Calves nontender Assessment and plan: Continue with postoperative care Hematocrit 37 patient will require ECF unsafe to go home. Objective Vital signs: Vital Signs Temp Pulse Resp BP Pulse Ox 12/30/17 04:45 97.7 F 86 16 143/81 97 06/19/18 23:34 98.2 F 80 16 118/70 96 12/29/17 19:07 98.2 F 97 16 130/71 95 12/29/17 15:09 98.2 F 93 20 111/70 94 12/29/17 11:18 98 F 92 20 158/74 90 12/29/17 07:08 97.6 F 98 22 114/84 92 Intake and Output 12/29/17 12/29/17 12/30/17 15:59 23:59 07:59 Intake Total 1060 / 1060 520 / 520 Output Total 300 / 300 Balance 1060 / 1060 220 / 220 Intake: IV Fluids 700 / 700 Lactated Ringers 1,000 ML @ 75 700 / 700 mls/hr IVC .[id number] [facility] Rx#: [id number] Oral 360 / 360 520 / 520 Output: Urine 300 / 300 Other: Meal Lunch Dinner Percent of Meal Consumed 100% 25% Blood Glucose* 366 176 - Labs CBC & BMP: 12/30/17 01:03 12/30/17 01:03 Labs: Abnormal lab results PT 12.9 Seconds (9.4-12.1) H 12/29/17 11:44 Sodium 129 mEq/L (136-145) L 12/30/17 01:03 Chloride 96 mEq/L (98-107) L 12/30/17 01:03 BUN 29 mg/dL (8-23) H 12/30/17 01:03 Creatinine 1.67 mg/dL (0.70-1.30) H 12/30/17 01:03 Est GFR ( Amer) 48 (> 60) L 12/30/17 01:03 Est GFR (Non-Af Amer) 40 (> 60) L 12/30/17 01:03 Glucose 177 mg/dL (70-105) H 12/30/17 01:03 POC Glucose 366 mg/dL (70-99) H 12/29/17 15:25 Calculated Osmolality 278 (280-300) L 12/30/17 01:03 - VTE Documentation of Mechanical Device: Venous foot pump, device Consult Discharge Plan - Plan Additional Instructions: Discharge Instructions: Total Knee Replacement Please call [facility] ([phone]), your Primary Care Physician, or report to the Emergency Room if you have any of the following symptoms: Nausea, vomiting, fever greater that 101.5, swelling, chest pain, shortness of breath, increased pain/redness/drainage/odor for your incision site, numbness/ tingling, or any other concerning symptoms. ACTIVITY:Weight-bearing as tolerated. You may progress off support (crutches or walker) as tolerated. MEDICATIONS: Upon discharge resume your home medications. Take all the medications as prescribed. Take a stool softener if taking narcotic pain medications. Stool softeners are only effective if you drink enough fluids. Drink 6-8 glass of water or fluids a day, unless this is not allowed for another health problem. Despite using stool softeners, if you haven't had a bowel movement in 3 days, please switch to a gentle laxative. Gentle laxatives are sold over the counter. You should have a bowel movement within 24 hours, if not call the office. You will be discharged from the hospital with a prescription for pain medication. You are encouraged to decrease the use of narcotic pain medication as tolerated. Should you require a refill, please call the office. [facility] prescribes narcotic pain medication for only 4-6 weeks after surgery. If you require pain medication beyond this time period, you may be referred to your Primary Care Physician or to the Pain Clinic for further evaluation. Plan ahead for refills on pain medication as many narcotics either need to be picked up at the office or mailed. It is best to call 48-72 hours in advance of needing a prescription refill so you don't run out of medication. To help control the post-operative pain, you may take NSAIDs (Aleve,Advil, Motrin, Ibuprofen, Naprosyn) or Tylenol as prescribed on the bottle in addition to the pain medication. ANTICOAGULATION (blood thinners): Continue your Aspirin, Lovenox or Coumadin as prescribed to help prevent a blood clot in the leg or in the lungs. As long as your incision remains dry and you tolerate the NSAIDs (Aleve, Advil, Motrin, ibuprofen, naprosyn), it is OK to use the NSAIDS while you are taking your anticoagulation medication. Should your incision start to drain, stop the NSAID and contact our office. Common symptoms of blood clot in the legs include: localized pain, swelling, calf tenderness, redness or discoloration of the skin. Blood clot in the lung symptoms include: shortness of breath, rapid pulse, sweating, and chest pain that worsens with deep breathing, coughing up blood, lightheadedness, feelings of anxiety. If you experience any of these symptoms notify your physician immediately, go to the emergency room, or if having trouble breathing, call 911. WOUND CARE: Leave the dressing on for 7 to 10days. You may change the dressing if it becomes saturated greater than 50%. Do not get the dressing wet at anytime. Wash your hands with antibacterial soap, rinse and dry prior to any wound care. If you have keenan the visiting nurse or rehab facility can remove the stapes 10-14 days [address] surgery [address] steri-strips across the wound. Leave the steri-strips in place until they fall off on their won. You may let water from the shower run on top of the steri-strips. If you do not have a visiting nurse or rehab facility, you will need to return to the office at 10-14 days for the keenan to be removed. If you have itching or redness around the dressing call the office. FOLLOW-UP: Please follow up with your surgeon in the orthopedic clinic in 4 weeks from the day of surgery. If you have keenan that need to be removed, you will need to come back to the office in 10-14 days from the day of surgery. Referrals: Doc Salazar DO [Primary Care Provider] -
[2017-12-30] MEDS: Insulin DETEMIR 100 UNIT/ML X5UNITS SQ SCH ×2 (07:43→16:54)
[2017-12-30] MEDS: Aspirin Enteric Coated 81 MG Tablet PO SCH (07:43)
[2017-12-30] MEDS: Cholecalciferol (D-3) 1,000 UNIT TABLET PO SCH (07:43)
[2017-12-30] MEDS: Insulin LISPRO 300 UNITS/3 ML VIAL SQ SCH ×4 (07:43→20:30)
[2017-12-30] MEDS: cloNIDine HCl 0.1 MG TABLET PO SCH ×2 (07:44→20:29)
[2017-12-30] MEDS: Metoprolol XL (24 HR) Succ 50 MG TAB.ER.24H PO SCH (07:44)
[2017-12-30] MEDS: Lisinopril 20 MG TABLET PO SCH (07:44)
[2017-12-30] MEDS: (Omega-3/Dha/Epa/Fish Oil [Fish Oil 1,000 Mg Softgel] PO SCH ×2 (07:44→20:32)
[2017-12-30] MEDS ORDERED: 0.9 % Sodium Chloride 1,000 ML IVC ONE (12:00)
[2017-12-30] MEDS: *HR* Warfarin 3 MG TABLET PO SCH (16:53)
--- NOTE | 2017-12-30 17:39 | Event Note ---
Date of Encounter: 12/30/17 Time of Encounter: 11:35 PCR- POD#2 status post left total knee robotic Dr. vAina 12/28/17 PCR - Patient seen at bedside. Labwork and medications reviewed. 12/29: H/H 14.6/42.5 12/30: H/H 13/37.8 Sodium 129 and mild bump in creatinine - patient with some agitation per nursing staff and appears dehydrated. Will order 1 L bolus with recheck BMP after administration. Coumadin resumed 12/28/17 - 12/29: INR 1.2 vital signs reviewed - demonstrating elevated BP 12/29; resolved on 12/30 Pain control: Adequate Participating in PT. Recommending SNF/ECF - Dr. Avina made aware of need to convert to inpatient status and patient converted to inpatient status secondary to safety concerns on 12/29. All questions and concerns addressed. Educated on use of incentive spirometer, ambulation, and hydration. Patient educated on post-operative restrictions and care. Addressed: see above. D/C plan: ECF - continuity in place; patient will be unable to d/c to ECF until 3 night INPATIENT status stay secondary to insurance - anticipated date of d/c . Awaiting approval/auth at this point.
[2017-12-30 19:39] LABS: Calcium 8.5 mg/dL (8.6-10.3); Potassium 4.5 mEq/L (3.5-5.1)
[2017-12-30] MEDS: Latanoprost 2.5 ML BOTTLE BOTH EYES SCH (20:29)
[2017-12-31] MEDS: *HR* Enoxaparin 30 MG/0.3 ML SYRINGE SQ SCH ×2 (05:00→17:33)
[2017-12-31] MEDS: *HR* OxyCODONE/APAP 5/325 TABLET PO PRN (05:00)
--- NOTE | 2017-12-31 06:23 | Orthopedics Progress Note ---
Date of Encounter: 12/31/17 Time of Encounter: 06:23 - Assessment and Plan (1) Atrial fibrillation with normal ventricular rate Current Visit: No Status: Chronic (2) Insulin dependent diabetes mellitus Current Visit: No Status: Chronic (3) HTN (hypertension) Current Visit: No Status: Chronic Qualifiers: Hypertension type: unspecified Qualified Code(s): I10 - Essential (primary ) hypertension (4) HLD (hyperlipidemia) Current Visit: No Status: Chronic Qualifiers: Hyperlipidemia type: unspecified Qualified Code(s): E78.5 - Hyperlipidemia , unspecified (5) CKD (chronic kidney disease) stage 3, GFR 30-59 ml/min Current Visit: No Status: Chronic (6) CAD (coronary artery disease) Current Visit: No Status: Chronic Qualifiers: Coronary Disease-Associated Artery/Lesion type: [place] artery [place] vs. transplanted heart: [place] heart Associated angina: angina presence unspecified Qualified Code(s): I25.10 - Atherosclerotic heart disease of [place] coronary artery without angina pectoris (7) HTN (hypertension) Current Visit: No Status: Chronic Qualifiers: Hypertension type: unspecified Qualified Code(s): I10 - Essential (primary ) hypertension (8) History of coronary artery stent placement Current Visit: No Status: Chronic (9) Carotid artery disease Current Visit: No Status: Chronic Qualifiers: Laterality: unspecified laterality Qualified Code(s): I77.9 - Disorder of arteries and arterioles, unspecified (10) Gout Current Visit: No Status: Chronic Qualifiers: Gout site: unspecified site Gout etiology: unspecified cause Chronicity: unspecified Qualified Code(s): M10.9 - Gout, unspecified (11) History of CHF (congestive heart failure) Current Visit: No Status: Chronic (12) History of pulmonary hypertension Current Visit: No Status: Chronic (13) History of TIA (transient ischemic attack) Current Visit: No Status: Chronic (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 Afebrile vital signs stable. Operative extremity: Neurovascularly intact Dressing clean dry and intact Calves nontender Assessment and plan: Continue with postoperative care Discharged tomorrow Objective Vital signs: Vital Signs Temp Pulse Resp BP Pulse Ox 12/31/17 04:40 98.9 F 85 18 126/51 95 12/31/17 00:08 97.9 F 79 16 116/68 96 12/30/17 18:50 97.9 F 86 16 128/68 94 12/30/17 15:53 98.6 F 87 18 113/59 96 12/30/17 10:42 98.4 F 80 17 108/55 94 12/30/17 06:31 98.7 F 106 18 124/76 95 Intake and Output 12/30/17 12/30/17 12/31/17 15:59 23:59 07:59 Intake Total 240 / 240 480 / 480 500 / 500 Output Total 725 / 725 800 / 800 Balance 240 / 240 -245 / -245 -300 / -300 Intake: Oral 240 / 240 480 / 480 500 / 500 Output: Urine 725 / 725 800 / 800 Other: Meal Breakfast Dinner Percent of Meal Consumed 50% 25% # Voids 4 Blood Glucose* 227 211 - Labs CBC & BMP: 12/30/17 01:03 12/30/17 19:06 Labs: Abnormal lab results PT 12.9 Seconds (9.4-12.1) H 12/29/17 11:44 Sodium 131 mEq/L (136-145) L 12/30/17 19:06 BUN 33 mg/dL (8-23) H 12/30/17 19:06 Creatinine 1.60 mg/dL (0.70-1.30) H 12/30/17 19:06 Est GFR ( Amer) 51 (> 60) L 12/30/17 19:06 Est GFR (Non-Af Amer) 42 (> 60) L 12/30/17 19:06 Glucose 248 mg/dL (70-105) H 12/30/17 19:06 POC Glucose 186 mg/dL (70-99) H 12/30/17 16:52 Calcium 8.5 mg/dL (8.6-10.3) L 12/30/17 19:06 - VTE Documentation of Mechanical Device: Venous foot pump, device Consult Discharge Plan - Plan Additional Instructions: Discharge Instructions: Total Knee Replacement Please call [facility] ([phone]), your Primary Care Physician, or report to the Emergency Room if you have any of the following symptoms: Nausea, vomiting, fever greater that 101.5, swelling, chest pain, shortness of breath, increased pain/redness/drainage/odor for your incision site, numbness/ tingling, or any other concerning symptoms. ACTIVITY:Weight-bearing as tolerated. You may progress off support (crutches or walker) as tolerated. MEDICATIONS: Upon discharge resume your home medications. Take all the medications as prescribed. Take a stool softener if taking narcotic pain medications. Stool softeners are only effective if you drink enough fluids. Drink 6-8 glass of water or fluids a day, unless this is not allowed for another health problem. Despite using stool softeners, if you haven't had a bowel movement in 3 days, please switch to a gentle laxative. Gentle laxatives are sold over the counter. You should have a bowel movement within 24 hours, if not call the office. You will be discharged from the hospital with a prescription for pain medication. You are encouraged to decrease the use of narcotic pain medication as tolerated. Should you require a refill, please call the office. [facility] prescribes narcotic pain medication for only 4-6 weeks after surgery. If you require pain medication beyond this time period, you may be referred to your Primary Care Physician or to the Pain Clinic for further evaluation. Plan ahead for refills on pain medication as many narcotics either need to be picked up at the office or mailed. It is best to call 48-72 hours in advance of needing a prescription refill so you don't run out of medication. To help control the post-operative pain, you may take NSAIDs (Aleve,Advil, Motrin, Ibuprofen, Naprosyn) or Tylenol as prescribed on the bottle in addition to the pain medication. ANTICOAGULATION (blood thinners): Continue your Aspirin, Lovenox or Coumadin as prescribed to help prevent a blood clot in the leg or in the lungs. As long as your incision remains dry and you tolerate the NSAIDs (Aleve, Advil, Motrin, ibuprofen, naprosyn), it is OK to use the NSAIDS while you are taking your anticoagulation medication. Should your incision start to drain, stop the NSAID and contact our office. Common symptoms of blood clot in the legs include: localized pain, swelling, calf tenderness, redness or discoloration of the skin. Blood clot in the lung symptoms include: shortness of breath, rapid pulse, sweating, and chest pain that worsens with deep breathing, coughing up blood, lightheadedness, feelings of anxiety. If you experience any of these symptoms notify your physician immediately, go to the emergency room, or if having trouble breathing, call 911. WOUND CARE: Leave the dressing on for 7 to 10days. You may change the dressing if it becomes saturated greater than 50%. Do not get the dressing wet at anytime. Wash your hands with antibacterial soap, rinse and dry prior to any wound care. If you have keenan the visiting nurse or rehab facility can remove the stapes 10-14 days after surgery and place steri-strips across the wound. Leave the steri-strips in place until they fall off on their won. You may let water from the shower run on top of the steri-strips. If you do not have a visiting nurse or rehab facility, you will need to return to the office at 10-14 days for the keenan to be removed. If you have itching or redness around the dressing call the office. FOLLOW-UP: Please follow up with your surgeon in the orthopedic clinic in 4 weeks from the day of surgery. If you have keenan that need to be removed, you will need to come back to the office in 10-14 days from the day of surgery. Referrals: Doc Salazar DO [Primary Care Provider] -
[2017-12-31] MEDS: Lisinopril 20 MG TABLET PO SCH (08:04)
[2017-12-31] MEDS: Cholecalciferol (D-3) 1,000 UNIT TABLET PO SCH (08:04)
[2017-12-31] MEDS: Aspirin Enteric Coated 81 MG Tablet PO SCH (08:04)
[2017-12-31] MEDS: cloNIDine HCl 0.1 MG TABLET PO SCH ×2 (08:04→22:44)
[2017-12-31] MEDS: Insulin LISPRO 300 UNITS/3 ML VIAL SQ SCH ×4 (08:05→22:44)
[2017-12-31] MEDS: Metoprolol XL (24 HR) Succ 50 MG TAB.ER.24H PO SCH (08:05)
[2017-12-31] MEDS: Insulin DETEMIR 100 UNIT/ML X5UNITS SQ SCH ×2 (09:11→17:37)
[2017-12-31] MEDS: (Omega-3/Dha/Epa/Fish Oil [Fish Oil 1,000 Mg Softgel] PO SCH ×2 (09:13→22:44)
[2017-12-31] MEDS: *HR* OxyCODONE Immed Rel 5 MG TABLET PO PRN ×2 (09:43→17:44)
--- NOTE | 2017-12-31 11:43 | Event Note ---
Date of Encounter: 12/31/17 Time of Encounter: 12:10 PCR- POD#3 status post left total knee robotic Dr. Avina 12/28/17 PCR - Patient seen at bedside. Patient resting in bed. Easily awoken. Labwork and medications reviewed. 12/29: H/H 14.6/42.5 12/30: H/H 13/37.8 Sodium 129 and mild bump in creatinine - patient with some agitation per nursing staff and appears dehydrated. Will order 1 L bolus with recheck BMP after administration. 12/31 - recheck BMP done evening of 12/30 demonstrates improvement; Coumadin resumed 12/28/17 - 12/29: INR 1.2 12/31 - will need to recheck INR prior to discharge on 01/01 vital signs reviewed - demonstrating elevated BP 12/29; resolved on 12/30 12/31: stable Pain control: Adequate Participating in PT. Recommending SNF/ECF - Dr. Avina made aware of need to convert to inpatient status and patient converted to inpatient status secondary to safety concerns on 12/29. All questions and concerns addressed. Educated on use of incentive spirometer, ambulation, and hydration. Patient educated on post-operative restrictions and care. Addressed: see above. D/C plan: ECF - continuity in place; patient will be unable to d/c to ECF until 3 night INPATIENT status stay secondary to insurance - anticipated date of d/c . Awaiting auth at this point.
[2017-12-31] MEDS: *HR* Warfarin 3 MG TABLET PO SCH (17:33)
[2017-12-31] MEDS: Latanoprost 2.5 ML BOTTLE BOTH EYES SCH (22:46)
[2018-01-01 01:36] LABS: Hematocrit 33.2 % (37.5-50.1); Hemoglobin 11.6 g/dL (12.9-16.9)
[2018-01-01 01:42] LABS: INR 1.3; Prothrombin Time 14.1 Seconds (9.4-12.1)
[2018-01-01] MEDS: *HR* OxyCODONE Immed Rel 5 MG TABLET PO PRN ×2 (03:36→09:24)
[2018-01-01] MEDS: *HR* Enoxaparin 30 MG/0.3 ML SYRINGE SQ SCH (05:25)
--- NOTE | 2018-01-01 06:43 | Orthopedics Progress Note ---
Date of Encounter: 01/01/18 Time of Encounter: 06:42 - Assessment and Plan (1) Atrial fibrillation with normal ventricular rate Current Visit: No Status: Chronic (2) Insulin dependent diabetes mellitus Current Visit: No Status: Chronic (3) HTN (hypertension) Current Visit: No Status: Chronic Qualifiers: Hypertension type: unspecified Qualified Code(s): I10 - Essential (primary ) hypertension (4) HLD (hyperlipidemia) Current Visit: No Status: Chronic Qualifiers: Hyperlipidemia type: unspecified Qualified Code(s): E78.5 - Hyperlipidemia , unspecified (5) CKD (chronic kidney disease) stage 3, GFR 30-59 ml/min Current Visit: No Status: Chronic (6) CAD (coronary artery disease) Current Visit: No Status: Chronic Qualifiers: Coronary Disease-Associated Artery/Lesion type: [place] artery [place] vs. transplanted heart: [place] heart Associated angina: angina presence unspecified Qualified Code(s): I25.10 - Atherosclerotic heart disease of [place] coronary artery without angina pectoris (7) HTN (hypertension) Current Visit: No Status: Chronic Qualifiers: Hypertension type: unspecified Qualified Code(s): I10 - Essential (primary ) hypertension (8) History of coronary artery stent placement Current Visit: No Status: Chronic (9) Carotid artery disease Current Visit: No Status: Chronic Qualifiers: Laterality: unspecified laterality Qualified Code(s): I77.9 - Disorder of arteries and arterioles, unspecified (10) Gout Current Visit: No Status: Chronic Qualifiers: Gout site: unspecified site Gout etiology: unspecified cause Chronicity: unspecified Qualified Code(s): M10.9 - Gout, unspecified (11) History of CHF (congestive heart failure) Current Visit: No Status: Chronic (12) History of pulmonary hypertension Current Visit: No Status: Chronic (13) History of TIA (transient ischemic attack) Current Visit: No Status: Chronic (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 Afebrile vital signs stable. Operative extremity: Neurovascularly intact Dressing clean dry and intact Calves nontender Assessment and plan: Continue with postoperative care Discharged today Objective Vital signs: Vital Signs Temp Pulse Resp BP Pulse Ox 12/31/17 23:18 98.9 F 85 18 107/66 95 12/31/17 19:00 98.0 F 85 16 136/79 97 12/31/17 15:02 98.7 F 108 16 123/55 93 12/31/17 11:20 97.9 F 78 18 97/59 93 12/31/17 06:44 99.3 F 95 18 124/64 94 Intake and Output 12/31/17 12/31/17 01/01/18 15:59 23:59 07:59 Intake Total 500 / 500 680 / 680 Output Total 750 / 750 750 / 750 Balance 500 / 500 -70 / -70 -750 / -750 Intake: Oral 500 / 500 680 / 680 Output: Urine 750 / 750 750 / 750 Other: Meal Lunch Dinner Percent of Meal Consumed 100% 100% Blood Glucose* 211 191 - Labs CBC & BMP: 01/01/18 01:03 12/30/17 19:06 Labs: Abnormal lab results Hgb 11.6 g/dL (12.9-16.9) L 01/01/18 01:03 Hct 33.2 % (37.5-50.1) L 01/01/18 01:03 PT 14.1 Seconds (9.4-12.1) H 01/01/18 01:03 Sodium 131 mEq/L (136-145) L 12/30/17 19:06 BUN 33 mg/dL (8-23) H 12/30/17 19:06 Creatinine 1.60 mg/dL (0.70-1.30) H 12/30/17 19:06 Est GFR ( Amer) 51 (> 60) L 12/30/17 19:06 Est GFR (Non-Af Amer) 42 (> 60) L 12/30/17 19:06 Glucose 248 mg/dL (70-105) H 12/30/17 19:06 POC Glucose 211 mg/dL (70-99) H 12/31/17 11:22 Calcium 8.5 mg/dL (8.6-10.3) L 12/30/17 19:06 - VTE Documentation of Mechanical Device: Venous foot pump, device Consult Discharge Plan - Plan Additional Instructions: Discharge Instructions: Total Knee Replacement Please call [facility] ([phone]), your Primary Care Physician, or report to the Emergency Room if you have any of the following symptoms: Nausea, vomiting, fever greater that 101.5, swelling, chest pain, shortness of breath, increased pain/redness/drainage/odor for your incision site, numbness/ tingling, or any other concerning symptoms. ACTIVITY:Weight-bearing as tolerated. You may progress off support (crutches or walker) as tolerated. MEDICATIONS: Upon discharge resume your home medications. Take all the medications as prescribed. Take a stool softener if taking narcotic pain medications. Stool softeners are only effective if you drink enough fluids. Drink 6-8 glass of water or fluids a day, unless this is not allowed for another health problem. Despite using stool softeners, if you haven't had a bowel movement in 3 days, please switch to a gentle laxative. Gentle laxatives are sold over the counter. You should have a bowel movement within 24 hours, if not call the office. You will be discharged from the hospital with a prescription for pain medication. You are encouraged to decrease the use of narcotic pain medication as tolerated. Should you require a refill, please call the office. [facility] prescribes narcotic pain medication for only 4-6 weeks after surgery. If you require pain medication beyond this time period, you may be referred to your Primary Care Physician or to the Pain Clinic for further evaluation. Plan ahead for refills on pain medication as many narcotics either need to be picked up at the office or mailed. It is best to call 48-72 hours in advance of needing a prescription refill so you don't run out of medication. To help control the post-operative pain, you may take NSAIDs (Aleve,Advil, Motrin, Ibuprofen, Naprosyn) or Tylenol as prescribed on the bottle in addition to the pain medication. ANTICOAGULATION (blood thinners): Continue your Aspirin, Lovenox or Coumadin as prescribed to help prevent a blood clot in the leg or in the lungs. As long as your incision remains dry and you tolerate the NSAIDs (Aleve, Advil, Motrin, ibuprofen, naprosyn), it is OK to use the NSAIDS while you are taking your anticoagulation medication. Should your incision start to drain, stop the NSAID and contact our office. Common symptoms of blood clot in the legs include: localized pain, swelling, calf tenderness, redness or discoloration of the skin. Blood clot in the lung symptoms include: shortness of breath, rapid pulse, sweating, and chest pain that worsens with deep breathing, coughing up blood, lightheadedness, feelings of anxiety. If you experience any of these symptoms notify your physician immediately, go to the emergency room, or if having trouble breathing, call 911. WOUND CARE: Leave the dressing on for 7 to 10days. You may change the dressing if it becomes saturated greater than 50%. Do not get the dressing wet at anytime. Wash your hands with antibacterial soap, rinse and dry prior to any wound care. If you have keenan the visiting nurse or rehab facility can remove the stapes 10-14 days after surgery [address] steri-strips across the wound. Leave the steri-strips in place until they fall off on their won. You may let water from the shower run on top of the steri-strips. If you do not have a visiting nurse or rehab facility, you will need to return to the office at 10-14 days for the keenan to be removed. If you have itching or redness around the dressing call the office. FOLLOW-UP: Please follow up with your surgeon in the orthopedic clinic in 4 weeks from the day of surgery. If you have keenan that need to be removed, you will need to come back to the office in 10-14 days from the day of surgery. Referrals: Doc Salazar DO [Primary Care Provider] -
[2018-01-01 06:52] VITALS: BP 125/85
[2018-01-01] MEDS: Metoprolol XL (24 HR) Succ 50 MG TAB.ER.24H PO SCH (07:40)
[2018-01-01] MEDS: Aspirin Enteric Coated 81 MG Tablet PO SCH (07:40)
[2018-01-01] MEDS: Insulin LISPRO 300 UNITS/3 ML VIAL SQ SCH (07:40)
[2018-01-01] MEDS: (Omega-3/Dha/Epa/Fish Oil [Fish Oil 1,000 Mg Softgel] PO SCH (07:40)
[2018-01-01] MEDS: Cholecalciferol (D-3) 1,000 UNIT TABLET PO SCH (07:40)
[2018-01-01] MEDS: cloNIDine HCl 0.1 MG TABLET PO SCH (07:40)
[2018-01-01] MEDS: Lisinopril 20 MG TABLET PO SCH (07:40)
[2018-01-01] MEDS: Insulin DETEMIR 100 UNIT/ML X5UNITS SQ SCH (09:26)
== END 2018-01-01 11:23 | DRG 470 ==
LOC: SAMDAY 13:26 → 3NENU 19:08
PROVIDERS: ADMIT Orthopaedic Surgery; ATTEND Orthopaedic Surgery

== ENCOUNTER 2018-12-30 18:11 | Inpatient (IN) ==
[2018-12-30] MEDS ORDERED: 0.9 % Sodium Chloride 1,000 ML IVC ONE (18:50)
[2018-12-30] MEDS ORDERED: cloNIDine HCl 0.1 MG TABLET PO ONE (18:52)
[2018-12-30 19:51] LABS: Basophils # 0.1 K/mcL (0.0-0.2); Basophils % 0.8 %; Eosinophils # 0.1 K/mcL (0.0-0.6); Eosinophils % 0.9 %; Hematocrit 51.4 % (37.5-50.1); Hemoglobin 17.7 g/dL (12.9-16.9); Immature Granulocytes % 0.8 % (0-4); Lymphocytes # 2.8 K/mcL (0.6-4.6); Lymphocytes % 17.7 %; Mean Corpuscular HGB Conc 34.4 g/dL (31.6-35.5); Mean Corpuscular Hemoglobin 32.1 pg (28.0-33.3); Mean Corpuscular Volume 93.1 fL (83.0-100.0); Mean Platelet Volume 11.4 fL (9.4-12.4); Monocytes # 2.1 K/mcL (0.0-1.3); Monocytes % 13.1 %; Neutrophils # 10.5 K/mcL (1.6-8.9); Platelet Count 297 K/mcL (140-400); Red Blood Count 5.52 M/mcL (4.19-5.50); Red Cell Distribution Width 14.6 % (11.5-14.5); Segmented Neutrophils % 66.7 %; White Blood Count 15.7 K/mcL (4.3-11.1)
[2018-12-30 19:58] LABS: INR 2.9; Prothrombin Time 33.3 Seconds (9.4-12.1)
[2018-12-30 20:01] LABS: Activated Partial Thrombo Time 52.8 Seconds (26.0-36.0)
[2018-12-30 20:22] LABS: BUN/Creatinine Ratio 15 (6-26); Blood Urea Nitrogen 19 mg/dL (8-23); Calcium 9.9 mg/dL (8.6-10.3); Carbon Dioxide 21 mEq/L (23-29); Chloride 97 mEq/L (98-107); Glucose 227 mg/dL (70-105); Osmolality,Calculated 291 (280-300); Sodium 136 mEq/L (136-145); Troponin I 0.05 ng/mL (< 0.04); eGFR For African Americans > 60 (> 60); eGFR For Non-African Americans 56 (> 60)
[2018-12-30] MEDS ORDERED: Lidocaine/EPI 1:100k 1% 30 ML VIAL INFILT STA (21:09)
[2018-12-30] MEDS ORDERED: Lidocaine -MPF 1% 5 ML AMPUL ONE (21:13)
[2018-12-30 21:21] LABS: Bilirubin,Urine Moderate (Negative); Blood,Urine Negative (Negative); Clarity,Urine Clear (Clear); Color,Urine Orange (Yellow); Glucose,Urine (UA) 100 mg/dL (Normal); Ketones,Urine Trace mg/dL (Negative); Leukocyte Esterase,Urine Small (Negative); Nitrite,Urine Negative (Negative); PH,Urine 5.5 pH Units (5.0-8.0); Protein,Urine 100 mg/dL (Neg-Trace); Specific Gravity,Urine 1.016 (1.010-1.025)
[2018-12-30 21:23] LABS: Bacteria,Urine None Seen per hpf (None-Few); Hyaline Casts,Urine Few per lpf (None-Few); Squamous Epithelial Cell,Urine Many per lpf (None-Few)
--- NOTE | 2018-12-30 22:05 | Emergency Department Note ---
Disposition Clinical Impression: Atrial fibrillation with RVR, Elevated troponin Septic arthritis Qualifiers: Septic arthritis location: knee Septic arthritis organism: due to unspecified organism Laterality: right Qualified Code(s): M00.9 - Pyogenic arthritis, unspecified Disposition: Admitted As Inpatient Condition: Fair Time of Disposition: 23:30 General Adult HPI - General Chief complaint: ED Urogenital-Male Stated complaint: right knee pain,difficulty walking Time Seen by Provider: 12/30/18 18:19 Source: patient Limitations: no limitations Nursing Notes Reviewed: Yes Vital Signs Reviewed: Yes - History of Present Illness HPI Narrative: 78-year-old male presents emergency Department with concerns of right knee pain and shortness breath. Patient states he has had the right knee pain increasing over the past 3-4 days and is unable unable to get out of his chair to Water or take his medications. Patient is tachycardic on his initial arrival, he states he has a history of atrial fibrillation and has not been able to take his oral blood pressure medications. Patient takes Coumadin for his atrial fibrillation has not been taking this over the past few days as well. Patient denies fever, chills, nausea, vomiting, chest pain, palpitations, syncope. No recent trauma to the knee. He does have a history of steroid joint injections to the right knee by his orthopedic physician last one being 3 months ago. Pain Scale: 10 - Related Data Home Medications Medication Instructions Recorded Confirmed Metoprolol XL (24 HR) Succ [Toprol 50 mg PO DAILY 08/03/15 12/30/18 Xl] Cholecalciferol (D-3) [Vitamin D] 5,000 unit PO DAILY 03/31/17 12/30/18 [place]-3/Dha/Epa/Fish Oil [Fish Oil 2 each PO BID 03/31/17 12/30/18 1,000 mg Softgel] Aspirin Enteric Coated [Aspirin EC] 81 mg PO DAILY 12/28/17 12/30/18 Insulin Glargine [Lantus] 30 unit SQ QAM 12/28/17 12/30/18 Insulin Glargine [Lantus] 50 unit SQ QPM 12/28/17 12/30/18 Insulin LISPRO [HumaLOG] 15 - 20 unit SQ TID 12/28/17 12/30/18 Warfarin [Coumadin] 6 mg PO DAILY 12/28/17 12/30/18 cloNIDine HCl [Clonidine HCl] 0.3 mg PO BID 12/28/17 12/30/18 Previous Rx's Medication Instructions Recorded Nitroglycerin 0.4 mg SL Q5MIN PRN #30 tab.subl 08/04/15 Acetaminophen [Tylenol] 1,000 mg PO Q6HR PRN #90 tablet 03/01/18 Allergies Allergy/AdvReac Type Severity Reaction Status Date / Time rosuvastatin [From Crestor] Allergy LEGS HURT Verified 03/30/18 10:07 All systems ED: reviewed and negative except as stated. Review of Systems: As Per HPI Past Medical History - Past Medical History Attestation: Yes The following information was validated with the patient. Source: patient Medical history: Reports: CHF, coronary artery disease, diabetes, GERD, hyperlipidemia, hypertension, myocardial infarction Surgical history: Reports: knee replacement Psychiatric history: Reports: no psych history - Social History Smoking Status: Never smoker Smokeless Tobacco Status: No Alcohol use: Reports: none Drug use: Reports: none Physical Exam General: Alert and in no acute distress Skin: Warm, dry, intact Head: Normocephalic and atraumatic Neck: Supple, trachea midline and no tenderness Cardiovascular: RRR, no murmur, normal perfusion Respiratory: CTAB, no wheezing, cough, or respiratory distress Musculoskeletal: Normal strength, tenderness and swelling to the right knee with obvious joint effusion. Pulses equal in bilateral lower extremity. GI: Soft, nontender, nondistended. Bowel sounds present Neuro: A&O to person, place, time and situation. No focal deficits noted on exam Psychiatric: cooperative and appropriate mood and affect. - General Limitations: no limitations General appearance: alert, in no apparent distress Course Vital Signs Temperature 97.7 F 12/30/18 18:12 Pulse Rate 141 12/30/18 18:12 Respiratory Rate 20 12/30/18 18:12 Blood Pressure 220/109 12/30/18 18:12 O2 Sat by Pulse Oximetry 95 12/30/18 18:12 Temperature 97.7 F 12/30/18 18:12 Pulse Rate 105 12/30/18 23:36 Respiratory Rate 21 12/30/18 23:36 Blood Pressure 179/96 12/30/18 23:36 O2 Sat by Pulse Oximetry 97 12/30/18 23:36 Oxygen Delivery Oxygen Delivery Room Air Procedures - Joint Aspiration/Injection Joint Aspiration/Injection 1 Consent Obtained: verbal consent, written consent Time Out Performed: Yes Side of body: right Joint Aspirated: knee Ultrasound Guidance: No Skin Prep: sterile prep and drape Local Anesthetic: lidocaine 1% Amount of anesthesia used (mL): 3 Needle Size Used: 18G Fluid Obtained: turbid Total Fluid Obtained (mls): 25 Patient Tolerated Procedure: well Complications: persistent leakage of fluid Medical Decision Making - MDM Narrative Medical decision making narrative: Patient likely tachycardic with his atrial fibrillation secondary to not taking his medications. He was given his clonidine and metoprolol with moderate improvement of his tachycardia and his elevated blood pressure. I spoke with the orthopedic physician, Dr. Krueger regarding the patient's right knee effusion and the need for likely joint aspiration to rule out septic joint. I discussed my concerns of elevated INR of 2.9. Orthopedic physician felt comfortable with the plan for joint aspiration in the emergency department. I discussed risks and benefits with the patient and I obtained verbal and written consent. Joint aspiration was performed emergency department by myself. - Medical Records Medical records reviewed: Yes I reviewed the patient's medical records. - Lab Data Lab results reviewed: Yes I reviewed the patient's lab results. Result diagrams: 12/30/18 19:09 12/30/18 19:09 Lab Results 12/30/18 12/30/18 12/30/18 Range/Units 19:09 19:09 19:09 WBC 15.7 H (4.3-11.1) K/mcL RBC 5.52 H (4.19-5.50) M/mcL Hgb 17.7 H (12.9-16.9) g/dL Hct 51.4 H (37.5-50.1) % MCV 93.1 (83.0-100.0) fL MCH 32.1 (28.0-33.3) pg MCHC 34.4 (31.6-35.5) g/dL RDW 14.6 H (11.5-14.5) % Plt Count 297 (140-400) K/mcL MPV 11.4 (9.4-12.4) fL Immature Gran % 0.8 (0-4) % Seg Neutrophils % 66.7 % Lymphocytes % 17.7 % Monocytes % 13.1 % Eosinophils % 0.9 % Basophils % 0.8 % Neutrophils # 10.5 H (1.6-8.9) K/mcL Lymphocytes # 2.8 (0.6-4.6) K/mcL Monocytes # 2.1 H (0.0-1.3) K/mcL Eosinophils # 0.1 (0.0-0.6) K/mcL Basophils # 0.1 (0.0-0.2) K/mcL ESR (0-10) mm/hr PT 33.3 H (9.4-12.1) Seconds INR 2.9 APTT 52.8 H (26.0-36.0) Seconds Sodium 136 (136-145) mEq/L Potassium 4.0 (3.5-5.1) mEq/L Chloride 97 L (98-107) mEq/L Carbon Dioxide 21 L (23-29) mEq/L BUN 19 (8-23) mg/dL Creatinine 1.24 (0.70-1.30) mg/dL Est GFR ( Amer) > 60 (> 60) Est GFR (Non-Af Amer) 56 L (> 60) BUN/Creatinine Ratio 15 (6-26) Glucose 227 H (70-105) mg/dL Calculated Osmolality 291 (280-300) Calcium 9.9 (8.6-10.3) mg/dL Troponin I 0.05 H* (< 0.04) ng/mL Urine Color (Yellow) Urine Clarity (Clear) Urine pH (5.0-8.0) pH Units Ur Specific [place] (1.010-1.025) Urine Protein (Neg-Trace) mg/dL Urine Glucose (UA) (Normal) mg/dL Urine Ketones (Negative) mg/dL Urine Blood (Negative) Urine Nitrite (Negative) Urine Bilirubin (Negative) Urine Urobilinogen (Normal) mg/dL Ur Leukocyte Esterase (Negative) Urine Microscopic RBC (0-3) per hpf Urine Microscopic WBC (0-3) per hpf Ur Squamous Epith Cells (None-Few) per lpf Urine Bacteria (None-Few) per hpf Hyaline Casts (None-Few) per lpf Ur Culture Indicated? (NO) Synovial Source Synovial Color (Straw) Synovial Appearance (Clear-Hazy) Synovial Volume mL Synovial pH (No Ref Range) pH Units Synovial RBC (0.000 - 0.002) M/mcl Synovial Tot Nuc Cell (0-200) TNC/mcL Synovial Seg Neuts % % Synovial Monocytes % % Synovial Crystals (None Seen) Synovial Glucose (No Ref Range) mg/dL Synovial Total Protein g/dL Synovial LDH (No Ref Range) Units/L 12/30/18 12/30/18 12/30/18 Range/Units 19:09 21:10 22:00 WBC (4.3-11.1) K/mcL RBC (4.19-5.50) M/mcL Hgb (12.9-16.9) g/dL Hct (37.5-50.1) % MCV (83.0-100.0) fL MCH (28.0-33.3) pg MCHC (31.6-35.5) g/dL RDW (11.5-14.5) % Plt Count (140-400) K/mcL MPV (9.4-12.4) fL Immature Gran % (0-4) % Seg Neutrophils % % Lymphocytes % % Monocytes % % Eosinophils % % Basophils % % Neutrophils # (1.6-8.9) K/mcL Lymphocytes # (0.6-4.6) K/mcL Monocytes # (0.0-1.3) K/mcL Eosinophils # (0.0-0.6) K/mcL Basophils # (0.0-0.2) K/mcL ESR 89 H (0-10) mm/hr PT (9.4-12.1) Seconds INR APTT (26.0-36.0) Seconds Sodium (136-145) mEq/L Potassium (3.5-5.1) mEq/L Chloride (98-107) mEq/L Carbon Dioxide (23-29) mEq/L BUN (8-23) mg/dL Creatinine (0.70-1.30) mg/dL Est GFR ( Amer) (> 60) Est GFR (Non-Af Amer) (> 60) BUN/Creatinine Ratio (6-26) Glucose (70-105) mg/dL Calculated Osmolality (280-300) Calcium (8.6-10.3) mg/dL Troponin I (< 0.04) ng/mL Urine Color [place] A (Yellow) Urine Clarity Clear (Clear) Urine pH 5.5 (5.0-8.0) pH Units Ur Specific [place] 1.016 (1.010-1.025) Urine Protein 100 H (Neg-Trace) mg/dL Urine Glucose (UA) 100 H (Normal) mg/dL Urine Ketones Trace H (Negative) mg/dL Urine Blood Negative (Negative) Urine Nitrite Negative (Negative) Urine Bilirubin Moderate H (Negative) Urine Urobilinogen 4.0 H (Normal) mg/dL Ur Leukocyte Esterase Small H (Negative) Urine Microscopic RBC 3-5 H (0-3) per hpf Urine Microscopic WBC 5-15 H (0-3) per hpf Ur Squamous Epith Cells Many H (None-Few) per lpf Urine Bacteria None Seen (None-Few) per hpf Hyaline Casts Few (None-Few) per lpf Ur Culture Indicated? YES A (NO) Synovial Source knee Synovial Color [place] (Straw) Synovial Appearance Cloudy A (Clear-Hazy) Synovial Volume 30.0 mL Synovial pH 8 (No Ref Range) pH Units Synovial RBC 0.036 H (0.000 - 0.002) M/mcl Synovial Tot Nuc Cell > 459653 H (0-200) TNC/mcL Synovial Seg Neuts % 99.0 % Synovial Monocytes % 1.0 % Synovial Crystals No Crystals Seen (None Seen) Synovial Glucose (No Ref Range) mg/dL Synovial Total Protein g/dL Synovial LDH (No Ref Range) Units/L 12/30/ Range/Units 22:00 WBC (4.3-11.1) K/mcL RBC (4.19-5.50) M/mcL Hgb (12.9-16.9) g/dL Hct (37.5-50.1) % MCV (83.0-100.0) fL MCH (28.0-33.3) pg MCHC (31.6-35.5) g/dL RDW (11.5-14.5) % Plt Count (140-400) K/mcL MPV (9.4-12.4) fL Immature Gran % (0-4) % Seg Neutrophils % % Lymphocytes % % Monocytes % % Eosinophils % % Basophils % % Neutrophils # (1.6-8.9) K/mcL Lymphocytes # (0.6-4.6) K/mcL Monocytes # (0.0-1.3) K/mcL Eosinophils # (0.0-0.6) K/mcL Basophils # (0.0-0.2) K/mcL ESR (0-10) mm/hr PT (9.4-12.1) Seconds INR APTT (26.0-36.0) Seconds Sodium (136-145) mEq/L Potassium (3.5-5.1) mEq/L Chloride (98-107) mEq/L Carbon Dioxide (23-29) mEq/L BUN (8-23) mg/dL Creatinine (0.70-1.30) mg/dL Est GFR ( Amer) (> 60) Est GFR (Non-Af Amer) (> 60) BUN/Creatinine Ratio (6-26) Glucose (70-105) mg/dL Calculated Osmolality (280-300) Calcium (8.6-10.3) mg/dL Troponin I (< 0.04) ng/mL Urine Color (Yellow) Urine Clarity (Clear) Urine pH (5.0-8.0) pH Units Ur Specific [place] (1.010-1.025) Urine Protein (Neg-Trace) mg/dL Urine Glucose (UA) (Normal) mg/dL Urine Ketones (Negative) mg/dL Urine Blood (Negative) Urine Nitrite (Negative) Urine Bilirubin (Negative) Urine Urobilinogen (Normal) mg/dL Ur Leukocyte Esterase (Negative) Urine Microscopic RBC (0-3) per hpf Urine Microscopic WBC (0-3) per hpf Ur Squamous Epith Cells (None-Few) per lpf Urine Bacteria (None-Few) per hpf Hyaline Casts (None-Few) per lpf Ur Culture Indicated? (NO) Synovial Source Synovial Color (Straw) Synovial Appearance (Clear-Hazy) Synovial Volume mL Synovial pH (No Ref Range) pH Units Synovial RBC (0.000 - 0.002) M/mcl Synovial Tot Nuc Cell (0-200) TNC/mcL Synovial Seg Neuts % % Synovial Monocytes % % Synovial Crystals (None Seen) Synovial Glucose 214 (No Ref Range) mg/dL Synovial Total Protein 4.5 g/dL Synovial LDH 513 (No Ref Range) Units/L - Radiology Data Radiology results reviewed: Yes I reviewed the patient's radiology results. - EKG Data EKG #1 EKG attestation: Yes I reviewed and interpreted this EKG. EKG results narrative: Atrial fibrillation with a rate of 114 without evidence of STEMI or other dysrhythmia. QTC of 380, QRS 92
[2018-12-30 22:15] LABS: Source,Synovial Fluid knee
[2018-12-30 23:31] LABS: Appearance,Synovial Fluid Cloudy (Clear-Hazy); Color,Synovial Fluid Amber (Straw)
[2018-12-30] MEDS ORDERED: cefTRIAXone 2,000 MG in Water for inj. (sterile) 20 ML IVPB ONE (23:32)
[2018-12-31] MEDS ORDERED: OXYCODONE Oral CONC 10 MG/0.5 ML ORAL.SYG SL PRN (00:05)
[2018-12-31] MEDS ORDERED: Naloxone 0.4 MG/ML INJ IVP PRN (00:05)
[2018-12-31] MEDS ORDERED: Ketorolac 30 MG/ML VIAL IVP PRN (00:05)
[2018-12-31] MEDS ORDERED: Nitroglycerin 0.4 MG TAB.SUBL SL PRN (00:06)
[2018-12-31] MEDS: Acetaminophen 325 MG TABLET PO PRN ×2 (01:02→07:45)
[2018-12-31] MEDS ORDERED: *HR* Dextrose 50 % in Water (Syg) 50 ML SYRINGE IVP PRN (01:15)
[2018-12-31] MEDS ORDERED: Dextrose Gel 15 GM/37.5 ML TUBE PO PRN ×2 (01:15)
--- NOTE | 2018-12-31 01:17 | Internal Med History&Physical ---
Date of Encounter: 12/31/18 Time of Encounter: 01:16 Internal Medicine - H&P: HPI Chief complaint: R knee pain Admitted From: Home Plans for Post Hospital Care: Home History of present illness: Bryce Camilo is an 78 year old man with multiple comorbidities limiting diabetes, hypertension, hyperlipidemia, chronic kidney disease, coronary artery and peripheral vascular disease, gout and sleep apnea. He has previously undergone left knee replacement and is currently undergoing steroid injections every so often into his right knee for osteoarthritic pains with his last shot being 3 months ago. He comes to the ER complaining of right knee pain and has been increasing over the last 3-4 days and he is now unable to get out of his chair. He was also notably tachycardic on arrival and found to be in A. fib with RVR. His knee was diffusely warm and tender to touch notable effusion palpable so a bedside sign of fluid aspiration was done, seen to be macroscopically cloudy and cellularity showing greater than 100,000 white blood cells with 99% neutrophils and no crystals identified. He is admitted for further care. Vitals: Reviewed General: Obese, ND Skin: Dry, flushed, warm. HEENT: Moist mucous membranes. No conjunctivae pallor. Neck: No lymphadenopathy. No JVD. No carotid bruits. No palpable thyroid. Chest: Normal thoracic expansion. Normal breath sounds. Clear to auscultation. Heart: Tachycardic and irregularly irregular. Abdomen: soft and non-tender to palpation. No peritoneal reaction. Extremities: Right knee with boggy swelling and exquisite tenderness on palpatio n of the medial aspect. Neurological: Awake, alert and oriented to person, place and time. No focal deficits. Psych: Affect appropriate. Assessment/Plan 1. Right knee septic arthritis: Unclear if the intra-articular injections he has received introduced bacteria locally and caused this infection although he reports it was last given 3 months ago making it less likely. Will need to get blood cultures to ensure he does not have bacteremia that has seeded. Start empiric vancomycin and ceftriaxone in the interim pending synovial fluid culture. Orthopedic consult has been requested. 2. Afib w/ RVR: He has been placed on a diltiazem drip which can likely soon be discontinued given his improving rate control. He is on warfarin for anticoagulation and within therapeutic range. 3. HTN: Poorly controlled. He has been administered his home dose of clonidine and the rest of his antihypertensives will be continued once reconciled. 4. Troponin elevation: Likely from myocardial demand in the setting of Afib RVR and HTsive urgency. 5. Erythrocytosis: Not a new finding, likely secondary to chronic hypoxic state from sleep apnea. 6. MELLO: Borderline and not on CPAP. Weight loss advised. 7. Diabetes: Will place on insulin sliding scale. Past Med Surg Social Fam HX - Past Medical History Medical history: CHF, coronary artery disease, diabetes, GERD, hyperlipidemia, hypertension, myocardial infarction Additional medical history: kidney disease, [place] - August 02, 2015, 1-stent in heart, 2-in femoral artery Psychiatric history: no psych history - Past Surgical History Surgical History: knee replacement Additional surgical history: heart cath with stent - abdominal stents x 2. left arm - tore muscle tricep - Social History Smoking Status: Former smoker Packs per day: 3 for 10 years Smokeless Tobacco Status: No Alcohol use: none Drug use: none - Family History Father Living Status: Mother Adopted: No Family Member Ethnicity: Non- Living Status: Hx Family Cardiac Disorders: No Hx Family Respiratory Disorders: No Hx Family Cancer: Yes (Lung cancer) Internal Medicine - H&P: Meds Metoprolol XL (24 HR) Succ [Toprol Xl] 50 mg PO DAILY 08/03/15 [History] Nitroglycerin 0.4 mg SL Q5MIN PRN #30 tab.subl 08/04/15 [Rx] Cholecalciferol (D-3) [Vitamin D] 5,000 unit PO DAILY 03/31/17 [History] [place]-3/Dha/Epa/Fish Oil [Fish Oil 1,000 mg Softgel] 2 each PO BID 03/31/17 [History] Aspirin Enteric Coated [Aspirin EC] 81 mg PO DAILY 12/28/17 [History] Insulin Glargine [Lantus] 30 unit SQ QAM 12/28/17 [History] Insulin Glargine [Lantus] 50 unit SQ QPM 12/28/17 [History] Insulin LISPRO [HumaLOG] 15 - 20 unit SQ TID 12/28/17 [History] Warfarin [Coumadin] 6 mg PO DAILY 12/28/17 [History] cloNIDine HCl [Clonidine HCl] 0.3 mg PO BID 12/28/17 [History] Acetaminophen [Tylenol] 1,000 mg PO Q6HR PRN #90 tablet 03/01/18 [Rx] Allergy/AdvReac Type Severity Reaction Status Date / Time rosuvastatin [From Crestor] Allergy LEGS HURT Verified 03/30/18 10:07 All Systems PM: A 10-system review of systems was performed and is negative for pertinent fin dings except as documented above in the HPI. - Constitutional Vitals: Temp Pulse Resp BP Pulse Ox 97.7 F 105 21 179/96 97 12/30/18 18:12 12/30/18 23:36 12/30/18 23:36 12/30/18 23:36 12/30/18 23:36 Exam: . Internal Med - H&P Results - Labs CBC & Chem 7: 12/30/18 19:09 12/30/18 19:09 Labs: Short CBC 12/30/18 Range/Units 19:09 WBC 15.7 H (4.3-11.1) K/mcL Hgb 17.7 H (12.9-16.9) g/dL Hct 51.4 H (37.5-50.1) % Plt Count 297 (140-400) K/mcL Neutrophils # 10.5 H (1.6-8.9) K/mcL BMP 12/30/18 19:09 Sodium 136 Potassium 4.0 Chloride 97 L Carbon Dioxide 21 L BUN 19 Creatinine 1.24 Glucose 227 H Calcium 9.9 Cardiac Enzymes 12/30/18 Range/Units 19:09 Troponin I 0.05 H* (< 0.04) ng/mL Urine 12/30/18 Range/Units 21:10 Urine Color [place] A (Yellow) Urine Clarity Clear (Clear) Urine pH 5.5 (5.0-8.0) pH Units Ur Specific [place] 1.016 (1.010-1.025) Urine Protein 100 H (Neg-Trace) mg/dL Urine Glucose (UA) 100 H (Normal) mg/dL - Impressions ITS Impressions Knee X-Ray 12/30/18 18:49 IMPRESSION: New large joint effusion. This is a nonspecific finding, and can be secondary to internal derangement if there is a history of trauma. If there is no history of trauma, septic, inflammatory, and crystalline arthritis would be considered. If there is concern for septic arthritis, joint aspiration should be performed. D/ / Jree Aj MD / Jere Aj MD Interpreting Provider: Jere Aj MD Chest X-Ray 12/30/18 18:50 IMPRESSION: No acute abnormality detected. D/ / Jere Aj MD / Jere Aj MD Interpreting Provider: Jere Aj MD - Time Spent With Patient Total time spent is greater than 50% in coordination of care (as documented) at patient's floor/unit and/or counseling patient: Greater than 35 minutes
[2018-12-31 02:35] LABS: Basophils # 0.1 K/mcL (0.0-0.2); Basophils % 0.6 %; Eosinophils # 0.2 K/mcL (0.0-0.6); Eosinophils % 1.1 %; Hematocrit 46.6 % (37.5-50.1); Immature Granulocytes % 1.1 % (0-4); Lymphocytes # 3.4 K/mcL (0.6-4.6); Mean Corpuscular HGB Conc 34.3 g/dL (31.6-35.5); Mean Corpuscular Hemoglobin 32.1 pg (28.0-33.3); Mean Corpuscular Volume 93.4 fL (83.0-100.0); Mean Platelet Volume 11.1 fL (9.4-12.4); Monocytes # 1.9 K/mcL (0.0-1.3); Monocytes % 11.8 %; Neutrophils # 10.4 K/mcL (1.6-8.9); Platelet Count 276 K/mcL (140-400); Red Blood Count 4.99 M/mcL (4.19-5.50); Red Cell Distribution Width 14.7 % (11.5-14.5); Segmented Neutrophils % 64.4 %; White Blood Count 16.1 K/mcL (4.3-11.1)
[2018-12-31 02:44] LABS: INR 3.2; Prothrombin Time 36.2 Seconds (9.4-12.1)
[2018-12-31 02:54] LABS: BUN/Creatinine Ratio 14 (6-26); Blood Urea Nitrogen 16 mg/dL (8-23); Calcium 9.2 mg/dL (8.6-10.3); Carbon Dioxide 22 mEq/L (23-29); Chloride 97 mEq/L (98-107); Glucose 229 mg/dL (70-105); Osmolality,Calculated 282 (280-300); Potassium 4.2 mEq/L (3.5-5.1); Sodium 132 mEq/L (136-145); eGFR For African Americans > 60 (> 60); eGFR For Non-African Americans > 60 (> 60)
[2018-12-31] MEDS ORDERED: 0.9 % Sodium Chloride 500 ML ONE (05:41)
[2018-12-31] MEDS: Cholecalciferol (D-3) 1,000 UNIT TABLET PO SCH (07:44)
[2018-12-31] MEDS: cloNIDine HCl 0.1 MG TABLET PO SCH ×2 (07:44→21:22)
[2018-12-31] MEDS: Aspirin Enteric Coated 81 MG Tablet PO SCH (07:44)
[2018-12-31] MEDS: Metoprolol XL (24 HR) Succ 50 MG TAB.ER.24H PO SCH (07:45)
[2018-12-31] MEDS: Insulin LISPRO 300 UNITS/3 ML VIAL SQ SCH ×4 (07:45→21:22)
[2018-12-31] MEDS: (Fish Oil 1,000 Mg Softgel) PO SCH ×2 (07:45→22:47)
[2018-12-31] MEDS: cefTRIAXone 2,000 MG in Water for inj. (sterile) 20 ML IVPB SCH (07:45)
[2018-12-31] MEDS ORDERED: Vancomycin 1,750 MG in 0.9 % Sodium Chloride 250 ML IVPB SCH (09:00)
--- NOTE | 2018-12-31 09:49 | Electrocardiograph Report ---
[place] [id number] Test Date: 2018-12-30 Pat Name: Bryce Camilo Department: [id number] Room: [facility] Gender: M [employer]: : [id number] Requested By: Fede Salazar Order Number: [id number] Reading MD: Ky Allan Measurements Intervals [place] Rate: 114 P: [place]: QRS: 81 QRSD: 92 T: 248 QT: 276 QTc: 380 Interpretive Statements Atrial fibrillation PVC Possible septal infarct, age undetermined Nonspecific ST-T changes Electronically Signed On 12-31-2018 9:48:22 EDT by Ky Allan
[2018-12-31] MEDS ORDERED: Furosemide 40 MG/4 ML VIAL IVP ONE (12:52)
--- NOTE | 2018-12-31 12:58 | Orthopedic Consult Note ---
Date of Encounter: 12/31/18 Time of Encounter: 12:00 Assessment and Plan (1) Right knee pain Current Visit: Yes Status: Acute right knee pain possible septic arthritis Xrays showed large joint effusion. knee aspiration performed in ER showed WBC >100,000. It was cloudy with no crystals. pending cultures but no bacteria seen on gram stain WBC 16.1 Knee pain has improved today per patient Continue IV abx per primary team. currently receiving IV rocephin and vancomycin. Knee motion as tolerated. Ice and elevate knee as needed. Discussed with Dr. Avina and will await final culture results before considering any surgical involvement. Qualifiers: Chronicity: acute Qualified Code(s): M25.561 - Pain in right knee History of Present Illness Chief complaint: Right knee pain HPI: Mr. Camilo is a 78 year old male presented to the ER for right knee pain and SOB. He states the knee pain started roughly 4 days ago but worsened in the last 2 days to where he has been unable to bear any weight on the right leg. He states it just started in the middle of the day when he tried to get up off the couch. Pain described as sharp and burning with weight bearing and better at rest. Currently at rest he has no knee pain and states overall much improved from yesterday. He states the knee has felt a little warm to him. He has had a cough but denies any other symptoms. Denies any known injuries. Of note he did cut the tips of 2nd and 3rd toes about 2 weeks ago when he was trying to clip his nails and still has wounds from this. He states the discoloration to his foot is chronic. He is diabetic but denies any neuropathy or any numbness or tingling to lower extremities. He is status post left TKR 12/2017 and has been following with Dr. Byrne for left knee osteoarthritis pain chronically. Most recently received Euflexxa s eries of 3 injections Jul/Aug of this year with significant relief of symptoms until now. Past Med Surg Social Fam HX - Past Medical History Medical history: CHF, coronary artery disease, diabetes, GERD, hyperlipidemia, hypertension, myocardial infarction Additional medical history: kidney disease, [place] - August 02, 2015, 1-stent in heart, 2-in femoral artery Psychiatric history: no psych history - Past Surgical History Surgical History: knee replacement Additional surgical history: heart cath with stent - abdominal stents x 2. left arm - tore muscle tricep - Social History Smoking Status: Former smoker Packs per day: 3 for 10 years Smokeless Tobacco Status: No Alcohol use: none Drug use: none - Family History Father Living Status: Mother Adopted: No Family Member Ethnicity: Non- Living Status: Hx Family Cardiac Disorders: No Hx Family Respiratory Disorders: No Hx Family Cancer: Yes (Lung cancer) Medications and Allergies Metoprolol XL (24 HR) Succ [Toprol Xl] 50 mg PO DAILY 08/03/15 [History] Nitroglycerin 0.4 mg SL Q5MIN PRN #30 tab.subl 08/04/15 [Rx] Cholecalciferol (D-3) [Vitamin D] 5,000 unit PO DAILY 03/31/17 [History] [place]-3/Dha/Epa/Fish Oil [Fish Oil 1,000 mg Softgel] 2 each PO BID 03/31/17 [History] Aspirin Enteric Coated [Aspirin EC] 81 mg PO DAILY 12/28/17 [History] Insulin Glargine [Lantus] 30 unit SQ QAM 12/28/17 [History] Insulin Glargine [Lantus] 50 unit SQ QPM 12/28/17 [History] Insulin LISPRO [HumaLOG] 15 - 20 unit SQ TID 12/28/17 [History] Warfarin [Coumadin] 6 mg PO DAILY 12/28/17 [History] cloNIDine HCl [Clonidine HCl] 0.3 mg PO BID 12/28/17 [History] Acetaminophen [Tylenol] 1,000 mg PO Q6HR PRN #90 tablet 03/01/18 [Rx] Allergy/AdvReac Type Severity Reaction Status Date / Time rosuvastatin [From Crestor] Allergy LEGS HURT Verified 03/30/18 10:07 All Systems Reviewed: The remainder of the systems were reviewed and are negative - Constitutional Constitutional: as per HPI - Cardiovascular Cardiovascular: as per HPI - Respiratory Respiratory: as per HPI - Musculoskeletal Musculoskeletal: as per HPI Physical Exam - Constitutional Vitals: Temp Pulse Resp BP Pulse Ox 98.3 F 103 20 132/67 97 12/31/18 11:56 12/31/18 11:56 12/31/18 11:56 12/31/18 11:56 12/31/18 11:56 - Knee right Appearance: other (Right knee noted to be swollen, no erythema, very minimal warmth to palpation to lateral knee where aspiration was drawn. mild tenderness to palpation to anterior knee. ROM 0-90 degrees easily, good dorsiflexion of foot. sensation intact distally. no calf tendernes to palpation. distal tips of right 2nd and 3rd toes have small black eschars noted with discoloration to foot, no drainage or surrounding erythema) Results - Labs Result Diagrams: 12/31/18 02:20 12/31/18 02:20 Labs: Abnormal lab results WBC 16.1 K/mcL (4.3-11.1) H 12/31/18 02:20 RBC 5.52 M/mcL (4.19-5.50) H 12/30/18 19:09 Hgb 17.7 g/dL (12.9-16.9) H 12/30/18 19:09 Hct 51.4 % (37.5-50.1) H 12/30/18 19:09 RDW 14.7 % (11.5-14.5) H 12/31/18 02:20 10.4 K/mcL (1.6-8.9) H 12/31/18 02:20 1.9 K/mcL (0.0-1.3) H 12/31/18 02:20 ESR 89 mm/hr (0-10) H 12/30/18 19:09 PT 36.2 Seconds (9.4-12.1) H 12/31/18 02:20 APTT 52.8 Seconds (26.0-36.0) H 12/30/18 19:09 Sodium 132 mEq/L (136-145) L 12/31/18 02:20 Chloride 97 mEq/L (98-107) L 12/31/18 02:20 Carbon Dioxide 22 mEq/L (23-29) L 12/31/18 02:20 Est GFR (Non-Af Amer) 56 (> 60) L 12/30/18 19:09 Glucose 229 mg/dL (70-105) H 12/31/18 02:20 POC Glucose 160 mg/dL (70-99) H 12/31/18 11:58 0.05 ng/mL (< 0.04) H* 12/30/18 19:09 [place] (Yellow) A 12/30/18 21:10 100 mg/dL (Neg-Trace) H 12/30/18 21:10 100 mg/dL (Normal) H 12/30/18 21:10 Trace mg/dL (Negative) H 12/30/18 21:10 Moderate (Negative) H 12/30/18 21:10 4.0 mg/dL (Normal) H 12/30/18 21:10 Ur Leukocyte Esterase Small (Negative) H 12/30/18 21:10 3-5 per hpf (0-3) H 12/30/18 21:10 5-15 per hpf (0-3) H 12/30/18 21:10 Ur Squamous Epith Cells Many per lpf (None-Few) H 12/30/18 21:10 Ur Culture Indicated? YES (NO) A 12/30/18 21:10 Synovial Appearance Cloudy (Clear-Hazy) A 12/30/18 22:00 Synovial RBC 0.036 M/mcl (0.000-0.002) H 12/30/18 22:00 Synovial Tot Nuc Cell > [id number] TNC/mcL (0-200) H 12/30/18 22:00 H & H 12/30/18 12/31/18 Range/Units 19:09 02:20 Hgb 17.7 H 16.0 D (12.9-16.9) g/dL Hct 51.4 H 46.6 (37.5-50.1) % All other labs normal. - Diagnostic results Knee x-ray: report reviewed, image reviewed Consult Discharge Plan - Plan Referrals: NONE,PCP [Primary Care Provider] - - Attending Attestation Case and plan of care discussed with supervising physician, Dr. Avina, who was available for all aspects of care.
--- NOTE | 2018-12-31 13:00 | Event Note ---
Date of Encounter: 12/31/18 Time of Encounter: 12:56 Bryce Camilo is an 78 year old man with multiple comorbidities limiting diabetes, hypertension, hyperlipidemia, chronic kidney disease, coronary artery and peripheral vascular disease, gout and sleep apnea. He has previously undergone left knee replacement and is currently undergoing steroid injections every so often into his right knee for osteoarthritic pains with his last shot being 3 months ago. He comes to the ER complaining of right knee pain and has been increasing over the last 3-4 days and he is now unable to get out of his chair. He was also notably tachycardic on arrival and found to be in A. fib with RVR. His knee was diffusely warm and tender to touch notable effusion palpable so a bedside sign of fluid aspiration was done, seen to be macroscopically cloudy and cellularity showing greater than 100,000 white blood cells with 99% neutrophils and no crystals identified. He is admitted for further care Assessment/Plan 1. Right knee septic arthritis: empiric vancomycin and ceftriaxone in the interim pending synovial fluid culture. Orthopedic consult has been requested. 2. Afib w/ RVR: He has been placed on a diltiazem drip which can likely soon be discontinued given his improving rate control. He is on warfarin for anticoagulation and within therapeutic range. 3. HTN: better controlled with home meds 4. Troponin elevation: Likely from myocardial demand in the setting of Afib RVR and HTsive urgency. 5. Erythrocytosis: Not a new finding, likely secondary to chronic hypoxic state from sleep apnea. 6. MELLO: Borderline and not on CPAP. Weight loss advised. 7. Diabetes: Will place on insulin sliding scale. 8. bronchitis with cough and SOB, wcovered with ATB, add duoneb, and IV lasix times one 9. right toe ulcers, consult podaitry, called, check GARFIELD 10. Obesity with BMI 37
[2018-12-31] MEDS: *HR* OxyCODONE Immed Rel 5 MG TABLET PO PRN (13:12)
--- NOTE | 2018-12-31 13:51 | Podiatry Consult Note ---
Date of Encounter: 12/31/18 Time of Encounter: 14:00 Assessment and Plan (1) Trauma of toe of right foot Current visit: Yes Status: Acute ASSESSMENT: Healing lacerations to toes #2 #3 right foot with noted scabbing without appearance of ulceration PLAN: Assessment complete at bedside Lesions appear to be healing and without clinical evidence of infection Appears to be scabbed lesions however ischemia cannot be ruled out. Patient has medical hx sig for PVD and pulses are only faint. Will order GARFIELD with TcPo2 to assess blood flow - if abnormal recommend vascular consult. Patient known to kavitha. Cleanse with saline, paint with betadine. Apply bandaids daily for protection until healed Monitor for any signs of infection or worsening. Call with any concerns. If not concerns we will sign off on this patient. Follow up in clinic in 2-3 weeks - patient needs to be evaluated for diabetic nail care on a outpatient basis. Qualifiers: Encounter type: initial encounter Qualified Code(s): S99.921A - Unspecified injury of right foot, initial encounter History of Present Illness HPI: Bryce Camilo is an 78 year old man with multiple comorbidities including diabetes, hypertension, hyperlipidemia, chronic kidney disease, coronary artery and peripheral vascular disease, gout and sleep apnea. He has previously undergone left knee replacement and is currently undergoing steroid injections to his right knee for reported pain. Patient presented to the hospital with complaints of right knee pain x3 days. He was seen and evaluated per ortho. Patient has been consulted to podiatry services regarding possible ischemia of right toes ##2 #3. Patient reports he cut the skin to the toes 2 weeks ago while he was attempting to trim them. States he does have sensation and knew when he did it. reports his glucose is pretty well controlled at home, 120-130. Patient denies any smoking, drug or alcohol use. patient reports he follows with kavitha for PVD. Patient states he has had vein stripping in the past but never any intervention for blood flow. Past Med Surg Social Fam HX - Past Medical History Medical history: CHF, coronary artery disease, diabetes, GERD, hyperlipidemia, hypertension, myocardial infarction Additional medical history: kidney disease, [place] - August 02, 2015, 1-stent in heart, 2-in femoral artery Psychiatric history: no psych history - Past Surgical History Surgical History: knee replacement Additional surgical history: heart cath with stent - abdominal stents x 2. left arm - tore muscle tricep - Social History Smoking Status: Former smoker Packs per day: 3 for 10 years Smokeless Tobacco Status: No Alcohol use: none Drug use: none - Family History Father Living Status: Mother Adopted: No Family Member Ethnicity: Non- Living Status: Hx Family Cardiac Disorders: No Hx Family Respiratory Disorders: No Hx Family Cancer: Yes (Lung cancer) Medications and Allergies Metoprolol XL (24 HR) Succ [Toprol Xl] 50 mg PO DAILY 08/03/15 [History] Nitroglycerin 0.4 mg SL Q5MIN PRN #30 tab.subl 08/04/15 [Rx] Cholecalciferol (D-3) [Vitamin D] 5,000 unit PO DAILY 03/31/17 [History] [place]-3/Dha/Epa/Fish Oil [Fish Oil 1,000 mg Softgel] 2 each PO BID 03/31/17 [History] Aspirin Enteric Coated [Aspirin EC] 81 mg PO DAILY 12/28/17 [History] Insulin Glargine [Lantus] 30 unit SQ QAM 12/28/17 [History] Insulin Glargine [Lantus] 50 unit SQ QPM 12/28/17 [History] Insulin LISPRO [HumaLOG] 15 - 20 unit SQ TID 12/28/17 [History] Warfarin [Coumadin] 6 mg PO DAILY 12/28/17 [History] cloNIDine HCl [Clonidine HCl] 0.3 mg PO BID 12/28/17 [History] Acetaminophen [Tylenol] 1,000 mg PO Q6HR PRN #90 tablet 03/01/18 [Rx] Allergy/AdvReac Type Severity Reaction Status Date / Time rosuvastatin [From Crestor] Allergy LEGS HURT Verified 03/30/18 10:07 All Systems Reviewed: as per HPI Physical Exam - Constitutional Vitals: Temp Pulse Resp BP Pulse Ox 98.3 F 103 20 132/67 97 12/31/18 11:56 12/31/18 11:56 12/31/18 11:56 12/31/18 11:56 12/31/18 11:56 Exam: CONSTITUTIONAL: Awake alert and oriented VASCULAR: Pulses faintly palpable DP/PT. There is dependent congestion with bluish discoloration of the entire foot consistent with PVD bilaterally. Bilateral feet are warm. Cap refill 3-4 seconds.No calf pain with manual squeeze NEUROLOGICAL: Intact sensation to light and moderate touch SKIN: There is noted trauma with scabbing to the distal pads of toes #2 #3 right where patient reports cutting the toes. There is overlying hyperkeratosis. There is no surrounding edema erythema or warmth. no drainage. No open areas. NO appearance of active infection. There is also callus formation of toe #2 and #4 left related to hammertoe deformity. MUSCULOSKELETAL: Muscle strength 5/5 and equal bilaterally. Hammertoe deformity of toes #2 #3 #4 bilaterally. Results - Labs Result Diagrams: 12/31/18 02:20 12/31/18 02:20 Labs: Abnormal lab results WBC 16.1 K/mcL (4.3-11.1) H 12/31/18 02:20 RBC 5.52 M/mcL (4.19-5.50) H 12/30/18 19:09 Hgb 17.7 g/dL (12.9-16.9) H 12/30/18 19:09 Hct 51.4 % (37.5-50.1) H 12/30/18 19:09 RDW 14.7 % (11.5-14.5) H 12/31/18 02:20 10.4 K/mcL (1.6-8.9) H 12/31/18 02:20 1.9 K/mcL (0.0-1.3) H 12/31/18 02:20 ESR 89 mm/hr (0-10) H 12/30/18 19:09 PT 36.2 Seconds (9.4-12.1) H 12/31/18 02:20 APTT 52.8 Seconds (26.0-36.0) H 12/30/18 19:09 Sodium 132 mEq/L (136-145) L 12/31/18 02:20 Chloride 97 mEq/L (98-107) L 12/31/18 02:20 Carbon Dioxide 22 mEq/L (23-29) L 12/31/18 02:20 Est GFR (Non-Af Amer) 56 (> 60) L 12/30/18 19:09 Glucose 229 mg/dL (70-105) H 12/31/18 02:20 POC Glucose 160 mg/dL (70-99) H 12/31/18 11:58 0.05 ng/mL (< 0.04) H* 12/30/18 19:09 [place] (Yellow) A 12/30/18 21:10 100 mg/dL (Neg-Trace) H 12/30/18 21:10 100 mg/dL (Normal) H 12/30/18 21:10 Trace mg/dL (Negative) H 12/30/18 21:10 Moderate (Negative) H 12/30/18 21:10 4.0 mg/dL (Normal) H 12/30/18 21:10 Ur Leukocyte Esterase Small (Negative) H 12/30/18 21:10 3-5 per hpf (0-3) H 12/30/18 21:10 5-15 per hpf (0-3) H 12/30/18 21:10 Ur Squamous Epith Cells Many per lpf (None-Few) H 12/30/18 21:10 Ur Culture Indicated? YES (NO) A 12/30/18 21:10 Synovial Appearance Cloudy (Clear-Hazy) A 12/30/18 22:00 Synovial RBC 0.036 M/mcl (0.000-0.002) H 12/30/18 22:00 Synovial Tot Nuc Cell > [id number] TNC/mcL (0-200) H 12/30/18 22:00 H & H 12/30/18 12/31/18 Range/Units 19:09 02:20 Hgb 17.7 H 16.0 D (12.9-16.9) g/dL Hct 51.4 H 46.6 (37.5-50.1) % All other labs normal. Consult Discharge Plan - Plan Referrals: NONE,PCP [Primary Care Provider] -
[2018-12-31] MEDS: Ipratropium/Albuterol Neb 3 ML IH SCH ×2 (15:22→22:13)
[2018-12-31 15:36] LABS: Estimated Average Glucose 146 mg/dl
[2018-12-31] MEDS: Artificial Tears SOLN 15 ML BOTTLE BOTH EYES SCH ×2 (17:05→21:22)
[2018-12-31] MEDS ORDERED: Warfarin perPT PO PRN (18:00)
[2019-01-01] MEDS: Ipratropium/Albuterol Neb 3 ML IH SCH ×5 (03:14→21:37)
[2019-01-01 05:02] LABS: Basophils # 0.1 K/mcL (0.0-0.2); Basophils % 0.9 %; Eosinophils # 0.3 K/mcL (0.0-0.6); Eosinophils % 2.8 %; Hematocrit 45.1 % (37.5-50.1); Hemoglobin 15.4 g/dL (12.9-16.9); Immature Granulocytes % 1.2 % (0-4); Lymphocytes # 3.6 K/mcL (0.6-4.6); Mean Corpuscular HGB Conc 34.1 g/dL (31.6-35.5); Mean Corpuscular Hemoglobin 32.1 pg (28.0-33.3); Mean Platelet Volume 11.5 fL (9.4-12.4); Monocytes # 1.3 K/mcL (0.0-1.3); Monocytes % 10.4 %; Neutrophils # 6.6 K/mcL (1.6-8.9); Platelet Count 243 K/mcL (140-400); Red Cell Distribution Width 14.5 % (11.5-14.5); Segmented Neutrophils % 54.7 %
[2019-01-01 05:08] LABS: INR 2.3; Prothrombin Time 26.4 Seconds (9.4-12.1)
[2019-01-01 05:18] LABS: BUN/Creatinine Ratio 20 (6-26); Blood Urea Nitrogen 24 mg/dL (8-23); Calcium 8.8 mg/dL (8.6-10.3); Carbon Dioxide 22 mEq/L (23-29); Chloride 98 mEq/L (98-107); Glucose 163 mg/dL (70-105); Magnesium 1.6 mg/dL (1.6-2.6); Osmolality,Calculated 286 (280-300); Potassium 4.1 mEq/L (3.5-5.1); Sodium 134 mEq/L (136-145); eGFR For African Americans > 60 (> 60); eGFR For Non-African Americans 58 (> 60)
[2019-01-01] MEDS: (Fish Oil 1,000 Mg Softgel) PO SCH ×2 (09:02→20:09)
[2019-01-01] MEDS: Metoprolol XL (24 HR) Succ 50 MG TAB.ER.24H PO SCH (09:04)
[2019-01-01] MEDS: Cholecalciferol (D-3) 1,000 UNIT TABLET PO SCH (09:04)
[2019-01-01] MEDS: Artificial Tears SOLN 15 ML BOTTLE BOTH EYES SCH ×4 (09:04→20:14)
[2019-01-01] MEDS: cloNIDine HCl 0.1 MG TABLET PO SCH ×2 (09:04→20:13)
[2019-01-01] MEDS: Aspirin Enteric Coated 81 MG Tablet PO SCH (09:04)
[2019-01-01] MEDS: cefTRIAXone 2,000 MG in Water for inj. (sterile) 20 ML IVPB SCH (09:05)
[2019-01-01] MEDS: Insulin LISPRO 300 UNITS/3 ML VIAL SQ SCH ×4 (09:05→20:10)
--- NOTE | 2019-01-01 09:06 | Internal Med Progress Note ---
Hospitalist Progress Note - Encounter Date of Encounter: 01/01/19 Time of Encounter: 09:00 - Subjective Interval History: No acute events overnight - Exam Vitals: Temp Pulse Resp BP Pulse Ox 98.0 F 110 20 166/73 93 01/01/19 08:00 01/01/19 08:00 01/01/19 08:00 01/01/19 08:00 01/01/19 08:00 Exam: . - Assessment and Plan (1) Septic arthritis Current Visit: Yes Status: Acute Assessment and Plan: Pt comes in with right knee swelling s/p multiple steroid injections and leukocytosis Arthrocentesis was done and synovial fluid had greater than 100 000 WBCs s uggestive of septic arthritis Continue vanc and ceftriaxone. Orthopedic surgery onboard. Follow cultures (2) Atrial fibrillation with RVR Current Visit: Yes Status: Acute Assessment and Plan: Started on a cardizem drip overnight . Now rate controlled Continue metoprolol and coumadin for anticoagulation (3) Trauma of toe of right foot Current Visit: Yes Status: Acute Assessment and Plan: Right toe ulcers. Podiatry consulted. GARFIELD showed mild right sided peripheral vascular disease No acute intervention. Wound care as needed (4) HTN (hypertension) Current Visit: Yes Status: Chronic Assessment and Plan: Continue antihypertensives (5) Diabetes mellitus Current Visit: Yes Status: Acute Assessment and Plan: Continue insulin and monitor fingersticks (6) Elevated troponin Current Visit: Yes Status: Acute Assessment and Plan: Likely demand. no acute intervention (7) DVT prophylaxis Current Visit: Yes Status: Acute Assessment and Plan: On coumadin - Time Spent with Patient Total time spent is greater than 50% in coordination of care (as documented) at patient's floor/unit and/or counseling patient: Internal Medicine: Result - Labs CBC & Chem 7: 01/01/19 03:55 01/01/19 03:55 Labs: Short CBC 01/01/19 Range/Units 03:55 WBC 12.0 H (4.3-11.1) K/mcL Hgb 15.4 (12.9-16.9) g/dL Hct 45.1 (37.5-50.1) % Plt Count 243 (140-400) K/mcL Neutrophils # 6.6 (1.6-8.9) K/mcL BMP 01/01/19 03:55 Sodium 134 L Potassium 4.1 Chloride 98 Carbon Dioxide 22 L BUN 24 H Creatinine 1.21 Glucose 163 H Calcium 8.8 - ABG Interpretation ABG results: PT/INR, D-dimer PT 26.4 Seconds (9.4-12.1) H 01/01/19 03:55 Consult Discharge Plan - Plan Referrals: NONE,PCP [Primary Care Provider] - __ (1) Septic arthritis Qualifiers: Septic arthritis location: knee Septic arthritis organism: due to unspecified organism Laterality: right Qualified Code(s): M00.9 - Pyogenic arthritis, unspecified (3) Trauma of toe of right foot Qualifiers: Encounter type: initial encounter Qualified Code(s): S99.921A - Unspecified i njury of right foot, initial encounter (4) HTN (hypertension) Qualifiers: Hypertension type: unspecified Qualified Code(s): I10 - Essential (primary) hypertension
[2019-01-01] MEDS: *HR* OxyCODONE Immed Rel 5 MG TABLET PO PRN (09:17)
[2019-01-01] MEDS ORDERED: *HR* Labetalol 20 MG/4 ML SYRINGE IVP ONE (12:00)
[2019-01-01] MEDS ORDERED: *HR* Warfarin 5 MG TABLET PO ONE (18:00)
[2019-01-02 02:26] LABS: BUN/Creatinine Ratio 18 (6-26); Blood Urea Nitrogen 20 mg/dL (8-23); Calcium 9.1 mg/dL (8.6-10.3); Carbon Dioxide 24 mEq/L (23-29); Chloride 99 mEq/L (98-107); Glucose 196 mg/dL (70-105); Magnesium 1.6 mg/dL (1.6-2.6); Osmolality,Calculated 284 (280-300); Phosphorous 2.5 mg/dL (2.7-4.5); Potassium 4.1 mEq/L (3.5-5.1); Sodium 133 mEq/L (136-145); eGFR For African Americans > 60 (> 60); eGFR For Non-African Americans > 60 (> 60)
[2019-01-02 02:34] LABS: Basophils # 0.1 K/mcL (0.0-0.2); Basophils % 0.9 %; Eosinophils # 0.3 K/mcL (0.0-0.6); Eosinophils % 2.2 %; Hemoglobin 15.9 g/dL (12.9-16.9); Immature Granulocytes % 1.1 % (0-4); Lymphocytes # 3.4 K/mcL (0.6-4.6); Lymphocytes % 27.3 %; Mean Corpuscular HGB Conc 33.8 g/dL (31.6-35.5); Mean Corpuscular Hemoglobin 31.9 pg (28.0-33.3); Mean Corpuscular Volume 94.4 fL (83.0-100.0); Mean Platelet Volume 11.3 fL (9.4-12.4); Monocytes # 1.2 K/mcL (0.0-1.3); Monocytes % 9.3 %; Neutrophils # 7.3 K/mcL (1.6-8.9); Platelet Count 273 K/mcL (140-400); Red Blood Count 4.98 M/mcL (4.19-5.50); Red Cell Distribution Width 14.6 % (11.5-14.5); Segmented Neutrophils % 59.2 %; White Blood Count 12.3 K/mcL (4.3-11.1)
[2019-01-02 02:41] LABS: INR 1.8; Prothrombin Time 20.4 Seconds (9.4-12.1)
[2019-01-02] MEDS: Ipratropium/Albuterol Neb 3 ML IH SCH ×4 (04:03→20:53)
[2019-01-02] MEDS: cloNIDine HCl 0.1 MG TABLET PO SCH ×2 (08:27→21:43)
[2019-01-02] MEDS: Cholecalciferol (D-3) 1,000 UNIT TABLET PO SCH (08:27)
[2019-01-02] MEDS: Artificial Tears SOLN 15 ML BOTTLE BOTH EYES SCH ×4 (08:27→21:50)
[2019-01-02] MEDS: Insulin LISPRO 300 UNITS/3 ML VIAL SQ SCH ×4 (08:27→21:50)
[2019-01-02] MEDS: (Fish Oil 1,000 Mg Softgel) PO SCH ×2 (08:28→21:50)
[2019-01-02] MEDS: Metoprolol XL (24 HR) Succ 50 MG TAB.ER.24H PO SCH (08:28)
[2019-01-02] MEDS: cefTRIAXone 2,000 MG in Water for inj. (sterile) 20 ML IVPB SCH (08:28)
[2019-01-02] MEDS: Aspirin Enteric Coated 81 MG Tablet PO SCH (08:28)
--- NOTE | 2019-01-02 08:43 | Internal Med Progress Note ---
Hospitalist Progress Note - Encounter Date of Encounter: 01/02/19 Time of Encounter: 08:00 - Subjective Interval History: No acute events overnight - Exam Vitals: Temp Pulse Resp BP Pulse Ox 98.5 F 107 18 124/85 96 01/02/19 06:52 01/02/19 06:52 01/02/19 06:52 01/02/19 06:52 01/02/19 06:52 Exam: General appearance: Present: A&O X 3, no acute distress Head exam: Present: normocephalic Respiratory exam: Present: CTAB. Absent: accessory muscle use, rales, rhonchi, wheezes Cardiovascular exam: Present: RRR, +S1, +S2. Absent: diastolic murmur, gallop, rubs, systolic murmur GI/Abdominal exam: Soft, NT, ND, +BS Extremities exam: Absent: pedal edema Neurological exam: Present: alert, oriented X3, no focal deficits. Absent: altered - Assessment and Plan (1) Septic arthritis Current Visit: Yes Status: Acute Assessment and Plan: Pt comes in with right knee swelling s/p multiple steroid injections and leukocytosis Arthrocentesis was done and synovial fluid had greater than 100 000 WBCs suggestive of septic arthritis Continue vanc and ceftriaxone. Orthopedic surgery onboard. Follow cultures (2) Atrial fibrillation with RVR Current Visit: Yes Status: Acute Assessment and Plan: Weaned off cardizem drip . Now rate controlled Continue metoprolol and coumadin for anticoagulation (3) Trauma of toe of right foot Current Visit: Yes Status: Acute Assessment and Plan: Right toe ulcers. Podiatry consulted. GARFIELD showed mild right sided peripheral vas cular disease No acute intervention. Wound care as needed (4) HTN (hypertension) Current Visit: Yes Status: Chronic Assessment and Plan: Continue antihypertensives (5) Diabetes mellitus Current Visit: Yes Status: Acute Assessment and Plan: Continue insulin and monitor fingersticks (6) Elevated troponin Current Visit: Yes Status: Acute Assessment and Plan: Likely demand. no acute intervention (7) DVT prophylaxis Current Visit: Yes Status: Acute Assessment and Plan: On coumadin - Time Spent with Patient Total time spent is greater than 50% in coordination of care (as documented) at patient's floor/unit and/or counseling patient: Internal Medicine: Result - Labs CBC & Chem 7: 01/02/19 01:51 01/02/19 01:51 Labs: Short CBC 01/02/19 Range/Units 01:51 WBC 12.3 H (4.3-11.1) K/mcL Hgb 15.9 (12.9-16.9) g/dL Hct 47.0 (37.5-50.1) % Plt Count 273 (140-400) K/mcL Neutrophils # 7.3 (1.6-8.9) K/mcL BMP 01/02/19 01:51 Sodium 133 L Potassium 4.1 Chloride 99 Carbon Dioxide 24 BUN 20 Creatinine 1.13 Glucose 196 H Calcium 9.1 - ABG Interpretation ABG results: PT/INR, D-dimer PT 20.4 Seconds (9.4-12.1) H 01/02/19 01:51 Consult Discharge Plan - Plan Referrals: NONE,PCP [Primary Care Provider] - (1) Septic arthritis Qualifiers: Septic arthritis location: knee Septic arthritis organism: due to unspecified organism Laterality: right Qualified Code(s): M00.9 - Pyogenic arthritis, unspecified (3) Trauma of toe of right foot Qualifiers: Encounter type: initial encounter Qualified Code(s): S99.921A - Unspecified injury of right foot, initial encounter (4) HTN (hypertension) Qualifiers: Hypertension type: unspecified Qualified Code(s): I10 - Essential (primary) hypertension
--- NOTE | 2019-01-02 15:12 | Orthopedics Progress Note ---
Date of Encounter: 01/02/19 Time of Encounter: 15:11 Subjective Principal diagnosis: Right knee effusion Interval history: The patient's right knee was tapped by Dr. Avina Rodrigo morning He states his knee feels better, although he does still have some pain Right knee: No erythema, positive swelling, no warmth, no crepitus, no effusion detected, range of motion 10-90 Assessment: Right knee pain Cultures are negative to date This does not seem to be a septic knee clinically and cultures are negative so far Plan: recommend physical therapy and analgesics Objective Vital signs: Vital Signs Temp Pulse Resp BP Pulse Ox 01/02/19 12:04 98.5 F 88 18 157/81 98 01/02/19 10:48 16 96 01/02/19 06:52 98.5 F 107 18 124/85 96 01/02/19 04:03 18 96 01/02/19 02:32 98.7 F 111 18 143/70 95 01/02/19 01:34 108 144/78 01/02/19 01:10 115 162/83 01/02/19 00:55 110 138/76 01/02/19 00:40 111 155/80 01/01/19 23:11 98.2 F 105 18 168/79 96 01/01/19 21:37 18 96 01/01/19 20:09 98.1 F 109 20 167/87 96 01/01/19 16:37 97.5 F L 99 20 163/83 94 Intake and Output 01/01/19 01/02/19 01/02/19 23:59 07:59 15:59 Intake Total 2070 / 2410 250 / 370 120 / 370 Output Total 1000 / 2100 1450 / 1750 300 / 1750 Balance 1070 / 310 -1200 / -1380 -180 / -1380 Intake: IV Fluids 1270 / 1560 250 / 250 0.9 % Sodium Chloride 500 ML @ 500 / 500 0 mls/hr .ROUTE .STK-MED ONE Rx #:[id number] Cardizem 50 MG In 0.9 % Sodium 0 / 0 Chloride 40 ML @ 5 MG/HR 5 mls/ hr IVC CONT TEJAL Rx#:[id number] Vancocin 1,250 MG In 0.9 % 250 / 500 250 / 250 Sodium Chloride 250 ML @ 166.67 mls/hr IVPB Q12H COUNTS INCLUDE 234 BEDS AT THE [facility] Rx#: [id number] Vancocin 2,000 MG In 0.9 % 500 / 500 Sodium Chloride 500 ML @ 250 mls/hr IVPB ONCE ONE Rx#: [id number] Rocephin 2,000 MG In Water for inj. (sterile) 20 ML @ 600 mls/ hr IVPB ONCE ONE Rx#:[id number] Oral 800 / 850 120 / 120 Output: Urine 1000 / 2100 1450 / 1750 300 / 1750 Other: Meal Breakfast Percent of Meal Consumed 100% Weight 113.5 kg Blood Glucose* 139 196 224 Patient Weight 01/02/19 23:59 Weight 113.5 kg - Labs CBC & BMP: 01/02/19 01:51 01/02/19 01:51 Labs: Abnormal lab results WBC 12.3 K/mcL (4.3-11.1) H 01/02/19 01:51 RBC 5.52 M/mcL (4.19-5.50) H 12/30/18 19:09 Hgb 17.7 g/dL (12.9-16.9) H 12/30/18 19:09 Hct 51.4 % (37.5-50.1) H 12/30/18 19:09 RDW 14.6 % (11.5-14.5) H 01/02/19 01:51 10.4 K/mcL (1.6-8.9) H 12/31/18 02:20 1.9 K/mcL (0.0-1.3) H 12/31/18 02:20 ESR 89 mm/hr (0-10) H 12/30/18 19:09 PT 20.4 Seconds (9.4-12.1) H 01/02/19 01:51 APTT 52.8 Seconds (26.0-36.0) H 12/30/18 19:09 Sodium 133 mEq/L (136-145) L 01/02/19 01:51 Chloride 97 mEq/L (98-107) L 12/31/18 02:20 Carbon Dioxide 22 mEq/L (23-29) L 01/01/19 03:55 BUN 24 mg/dL (8-23) H 01/01/19 03:55 Est GFR (Non-Af Amer) 58 (> 60) L 01/01/19 03:55 Glucose 196 mg/dL (70-105) H 01/02/19 01:51 POC Glucose 224 mg/dL (70-99) H 01/02/19 12:01 6.7 % (-5.6) H 12/31/18 02:20 Phosphorus 2.5 mg/dL (2.7-4.5) L 01/02/19 01:51 0.05 ng/mL (< 0.04) H* 12/30/18 19:09 [place] (Yellow) A 12/30/18 21:10 100 mg/dL (Neg-Trace) H 12/30/18 21:10 100 mg/dL (Normal) H 12/30/18 21:10 Trace mg/dL (Negative) H 12/30/18 21:10 Moderate (Negative) H 12/30/18 21:10 4.0 mg/dL (Normal) H 12/30/18 21:10 Ur Leukocyte Esterase Small (Negative) H 12/30/18 21:10 3-5 per hpf (0-3) H 12/30/18 21:10 5-15 per hpf (0-3) H 12/30/18 21:10 Ur Squamous Epith Cells Many per lpf (None-Few) H 12/30/18 21:10 Ur Culture Indicated? YES (NO) A 12/30/18 21:10 Synovial Appearance Cloudy (Clear-Hazy) A 12/30/18 22:00 Synovial RBC 0.036 M/mcl (0.000-0.002) H 12/30/18 22:00 Synovial Tot Nuc Cell > 280271 TNC/mcL (0-200) H 12/30/18 22:00 Vancomycin Trough 17 mcg/mL (5-10) H 01/02/19 01:51 Consult Discharge Plan - Plan Referrals: NONE,PCP [Primary Care Provider] -
[2019-01-02] MEDS ORDERED: *HR* Metoprolol 5 MG/5 ML VIAL IVP ONE (17:06)
[2019-01-02] MEDS ORDERED: *HR* Warfarin 3 MG TABLET PO ONE (18:00)
[2019-01-03] MEDS: Acetaminophen 325 MG TABLET PO PRN (00:34)
[2019-01-03] MEDS: Ipratropium/Albuterol Neb 3 ML IH SCH ×4 (04:26→23:08)
[2019-01-03 06:47] LABS: Basophils # 0.1 K/mcL (0.0-0.2); Basophils % 1.1 %; Eosinophils # 0.4 K/mcL (0.0-0.6); Eosinophils % 2.9 %; Hemoglobin 16.1 g/dL (12.9-16.9); Immature Granulocytes % 0.9 % (0-4); Lymphocytes % 31.5 %; Mean Corpuscular HGB Conc 34.3 g/dL (31.6-35.5); Mean Corpuscular Hemoglobin 32.7 pg (28.0-33.3); Mean Corpuscular Volume 95.3 fL (83.0-100.0); Mean Platelet Volume 11.3 fL (9.4-12.4); Monocytes % 7.5 %; Neutrophils # 7.2 K/mcL (1.6-8.9); Platelet Count 279 K/mcL (140-400); Red Blood Count 4.93 M/mcL (4.19-5.50); Red Cell Distribution Width 14.6 % (11.5-14.5); Segmented Neutrophils % 56.1 %; White Blood Count 12.8 K/mcL (4.3-11.1)
--- NOTE | 2019-01-03 06:48 | Orthopedics Progress Note ---
Date of Encounter: 01/03/19 Time of Encounter: 06:44 Subjective Principal diagnosis: Right knee effusion Interval history: Patient seen this morning, describes less pain in his knee. Has no swelling. Good motion. Cultures negative. Continue to plan without surgical intervention. Objective Vital signs: Vital Signs Temp Pulse Resp BP Pulse Ox 01/03/19 05:26 185/75 01/03/19 04:26 97.8 F 103 18 191/76 96 01/02/19 22:44 98.3 F 112 18 128/82 97 01/02/19 22:04 94 01/02/19 21:21 177/87 01/02/19 20:53 18 97 01/02/19 19:15 97.9 F 104 17 94 01/02/19 16:05 16 98 01/02/19 15:27 98.2 F 100 20 169/84 96 01/02/19 12:04 98.5 F 88 18 157/81 98 01/02/19 10:48 16 96 01/02/19 06:52 98.5 F 107 18 124/85 96 Intake and Output 01/02/19 01/02/19 01/03/19 15:59 23:59 07:59 Intake Total 120 / 770 400 / 770 50.0 / 50.0 Output Total 600 / 2500 450 / 2500 450 / 450 Balance -480 / -1730 -50 / -1730 -400.0 / -400.0 Intake: IV Fluids 0 / 500 250 / 500 50.0 / 50.0 Cardizem 50 MG In 0.9 % Sodium 50.0 / 50.0 Chloride 40 ML @ 5 MG/HR 5 mls/ hr IVC CONT TEJAL Rx#:[id number] Vancocin 1,000 MG In 0.9 % 0 / 250 250 / 250 Sodium Chloride 250 ML @ 166. 667 mls/hr IVPB Q12H TEJAL Rx#: [id number] Oral 120 / 270 150 / 270 Output: Urine 600 / 2500 450 / 2500 450 / 450 Other: Meal Breakfast popcorn Percent of Meal Consumed 100% 100% Weight 112.6 kg Blood Glucose* 228 289 Patient Weight 01/03/19 23:59 Weight 112.6 kg - Labs CBC & BMP: 01/02/19 01:51 01/02/19 01:51 Labs: Abnormal lab results WBC 12.3 K/mcL (4.3-11.1) H 01/02/19 01:51 RBC 5.52 M/mcL (4.19-5.50) H 12/30/18 19:09 Hgb 17.7 g/dL (12.9-16.9) H 12/30/18 19:09 Hct 51.4 % (37.5-50.1) H 12/30/18 19:09 RDW 14.6 % (11.5-14.5) H 01/02/19 01:51 10.4 K/mcL (1.6-8.9) H 12/31/18 02:20 1.9 K/mcL (0.0-1.3) H 12/31/18 02:20 ESR 89 mm/hr (0-10) H 12/30/18 19:09 PT 20.4 Seconds (9.4-12.1) H 01/02/19 01:51 APTT 52.8 Seconds (26.0-36.0) H 12/30/18 19:09 Sodium 133 mEq/L (136-145) L 01/02/19 01:51 Chloride 97 mEq/L (98-107) L 12/31/18 02:20 Carbon Dioxide 22 mEq/L (23-29) L 01/01/19 03:55 BUN 24 mg/dL (8-23) H 01/01/19 03:55 Est GFR (Non-Af Amer) 58 (> 60) L 01/01/19 03:55 Glucose 196 mg/dL (70-105) H 01/02/19 01:51 POC Glucose 228 mg/dL (70-99) H 01/02/19 15:30 6.7 % (-5.6) H 12/31/18 02:20 Phosphorus 2.5 mg/dL (2.7-4.5) L 01/02/19 01:51 0.05 ng/mL (< 0.04) H* 12/30/18 19:09 [place] (Yellow) A 12/30/18 21:10 100 mg/dL (Neg-Trace) H 12/30/18 21:10 100 mg/dL (Normal) H 12/30/18 21:10 Trace mg/dL (Negative) H 12/30/18 21:10 Moderate (Negative) H 12/30/18 21:10 4.0 mg/dL (Normal) H 12/30/18 21:10 Ur Leukocyte Esterase Small (Negative) H 12/30/18 21:10 3-5 per hpf (0-3) H 12/30/18 21:10 5-15 per hpf (0-3) H 12/30/18 21:10 Ur Squamous Epith Cells Many per lpf (None-Few) H 12/30/18 21:10 Ur Culture Indicated? YES (NO) A 12/30/18 21:10 Synovial Appearance Cloudy (Clear-Hazy) A 12/30/18 22:00 Synovial RBC 0.036 M/mcl (0.000-0.002) H 12/30/18 22:00 Synovial Tot Nuc Cell > 760565 TNC/mcL (0-200) H 12/30/18 22:00 Vancomycin Trough 17 mcg/mL (5-10) H 01/02/19 01:51 Consult Discharge Plan - Plan Referrals: NONE,PCP [Primary Care Provider] -
[2019-01-03 07:01] LABS: INR 1.8; Prothrombin Time 20.3 Seconds (9.4-12.1)
[2019-01-03] MEDS: Metoprolol XL (24 HR) Succ 50 MG TAB.ER.24H PO SCH (07:01)
[2019-01-03 07:07] LABS: BUN/Creatinine Ratio 18 (6-26); Blood Urea Nitrogen 20 mg/dL (8-23); Calcium 9.4 mg/dL (8.6-10.3); Carbon Dioxide 20 mEq/L (23-29); Chloride 101 mEq/L (98-107); Glucose 221 mg/dL (70-105); Magnesium 1.5 mg/dL (1.6-2.6); Osmolality,Calculated 291 (280-300); Phosphorous 2.8 mg/dL (2.7-4.5); Potassium 3.9 mEq/L (3.5-5.1); Sodium 136 mEq/L (136-145); eGFR For African Americans > 60 (> 60); eGFR For Non-African Americans > 60 (> 60)
[2019-01-03] MEDS: Insulin LISPRO 300 UNITS/3 ML VIAL SQ SCH ×4 (08:11→21:15)
[2019-01-03] MEDS: Cholecalciferol (D-3) 1,000 UNIT TABLET PO SCH (08:12)
[2019-01-03] MEDS: cloNIDine HCl 0.1 MG TABLET PO SCH ×2 (08:12→21:03)
[2019-01-03] MEDS: Aspirin Enteric Coated 81 MG Tablet PO SCH (08:13)
[2019-01-03] MEDS: cefTRIAXone 2,000 MG in Water for inj. (sterile) 20 ML IVPB SCH (08:13)
[2019-01-03] MEDS: Artificial Tears SOLN 15 ML BOTTLE BOTH EYES SCH ×4 (08:14→21:29)
[2019-01-03] MEDS: (Fish Oil 1,000 Mg Softgel) PO SCH ×2 (08:14→21:54)
--- NOTE | 2019-01-03 08:31 | Internal Med Progress Note ---
Hospitalist Progress Note - Encounter Date of Encounter: 01/03/19 Time of Encounter: 08:30 - Subjective Interval History: restarted on cardizem drip overnight - Exam Vitals: Temp Pulse Resp BP Pulse Ox 98.3 F 109 18 180/75 94 01/03/19 06:40 01/03/19 06:40 01/03/19 06:40 01/03/19 06:40 01/03/19 06:40 Exam: General appearance: Present: A&O X 3, no acute distress Head exam: Present: normocephalic Respiratory exam: Present: CTAB. Absent: accessory muscle use, rales, rhonchi, wheezes Cardiovascular exam: Present: RRR, +S1, +S2. Absent: diastolic murmur, gallop, rubs, systolic murmur GI/Abdominal exam: Soft, NT, ND, +BS Extremities exam: Absent: pedal edema Neurological exam: Present: alert, oriented X3, no focal deficits. Absent: altered - Assessment and Plan (1) Septic arthritis Current Visit: Yes Status: Acute Assessment and Plan: Pt comes in with right knee swelling s/p multiple steroid injections and leukocytosis Arthrocentesis was done and synovial fluid had greater than 100 000 WBCs suggestive of septic arthritis Gram stain and cultures negative. No orthopedic surgery intervention. Will d/c antibiotics pending ID recs (2) Atrial fibrillation with RVR Current Visit: Yes Status: Acute Assessment and Plan: Weaned off cardizem drip . Now rate controlled Continue metoprolol and coumadin for anticoagulation. Patient went back on cardizem drip overnight Will start on po cardizem and monitor heart rate (3) Trauma of toe of right foot Current Visit: Yes Status: Acute Assessment and Plan: Right toe ulcers. Podiatry consulted. GARFIELD showed mild right sided peripheral vascular disease No acute intervention. Wound care as needed (4) HTN (hypertension) Current Visit: Yes Status: Chronic Assessment and Plan: Continue antihypertensives (5) Diabetes mellitus Current Visit: Yes Status: Acute Assessment and Plan: Continue insulin and monitor fingersticks (6) Elevated troponin Current Visit: Yes Status: Acute Assessment and Plan: Likely demand. no acute intervention (7) DVT prophylaxis Current Visit: Yes Status: Acute Assessment and Plan: On coumadin - Time Spent with Patient Total time spent is greater than 50% in coordination of care (as documented) at patient's floor/unit and/or counseling patient: Internal Medicine: Result - Labs CBC & Chem 7: 01/03/19 06:01 01/03/19 06:01 Labs: Short CBC 01/03/19 Range/Units 06:01 WBC 12.8 H (4.3-11.1) K/mcL Hgb 16.1 (12.9-16.9) g/dL Hct 47.0 (37.5-50.1) % Plt Count 279 (140-400) K/mcL Neutrophils # 7.2 (1.6-8.9) K/mcL BMP 01/03/19 06:01 Sodium 136 Potassium 3.9 Chloride 101 Carbon Dioxide 20 L BUN 20 Creatinine 1.10 Glucose 221 H Calcium 9.4 - ABG Interpretation ABG results: PT/INR, D-dimer PT 20.3 Seconds (9.4-12.1) H 01/03/19 06:01 Consult Discharge Plan - Plan Referrals: NONE,PCP [Primary Care Provider] - (1) Septic arthritis Qualifiers: Septic arthritis location: knee Septic arthritis organism: due to unspecified organism Laterality: right Qualified Code(s): M00.9 - Pyogenic arthritis, unspecified (3) Trauma of toe of right foot Qualifiers: Encounter type: initial encounter Qualified Code(s): S99.921A - Unspecified injury of right foot, initial encounter (4) HTN (hypertension) Qualifiers: Hypertension type: unspecified Qualified Code(s): I10 - Essential (primary) hypertension
[2019-01-03] MEDS ORDERED: amLODIPine 5 MG TABLET PO SCH (09:00)
--- NOTE | 2019-01-03 10:22 | Infectious Disease Consult ---
Infectious Disease-Consult - Encounter Date/Time Date of Encounter: 01/03/19 Time of Encounter: 10:19 - Data of Consult Patient: new to practice Reason for consult: septic arthritis? query duration of abx Consult date: 01/03/19 Requesting Physician: Nayan Sanders MD Primary Care Provider: PCP NONE - HPI HPI: Mr. Camilo is an 78-year-old male with past medical history of CHF, CAD, diabetes, GERD, hyperlipidemia, hypertension, [place], chronic kidney disease, peripheral arterial disease, gout, and osteoarthritis. The patient was admitted to the hospital 12/30/18 for A. fib RVR, elevated troponin, and septic arthritis. We are consulted 01/03/19 for further workup and treatment recommendations for possible septic arthritis of the right knee. Briefly, the patient is an 78-year-old male with past medical history as stated above. The patient presented to the emergency department with complaints of severe right knee pain that had been progressively getting worse for several days to the point where he was unable to ambulate. He states he had not taken his chronic medications at home. Upon arrival, he was afebrile. He was tachycardic and hypertensive. He had leukocytosis with neutrophilic predomin ance. He had an acute kidney injury and a mildly elevated troponin. His ESR was 89. Urinalysis appeared contaminated. He had a right knee x-ray that showed a large joint effusion. He underwent bedside arthrocentesis that yielded 25 mL's of turbid fluid. T and C was greater than 100,000 with 99% segmented neutrophils. Gram stain and cultures are both negative. He had a chest x-ray as well that was negative. He was started empirically on vancomycin and ceftriaxone and admitted to the hospital for further evaluation. Since admission, the patient has been evaluated by orthopedics who recommended watchful waiting pending culture results. Podiatry was also consulted for some superficial wounds to his feet. The cultures from 12/31/18 are no growth to date. GARFIELD and TCP O2 monitoring were completed and results are pending. The Patient continues to be tachycardic. His WBC is stable at around 12. His acute kidney injury has resolved. Currently, he is on Rocephin and vancomycin. We have been asked to evaluate and make further recommendations. During my exam today, the patient endorses the history as stated above. He reports right knee pain that started last Arely that progressively worsened. He denies any fevers or chills or rigors. Denies headache or neck pain. Denies chest pain, shortness of breath, or cough. Denies nausea, vomiting, diarrhea, or constipation. Denies abdominal pain or urinary complaints. States his appetite is okay, but he was not drinking enough water prior to coming to the ER. He complained of pain and swelling to the right knee, but denies any redness or warmth. States knee pain is markedly improved. He denies any recent trauma. States he did have a steroid injection in the right knee back in September. Denies oral thrush or skin rashes. The patient lives at home in [place], [place], with his . 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 He denies tobacco, alcohol, or illicit drug use. Denies any recent travel outside the [facility]. Denies chronic infectious diseases. - ROS Review of Systems: All systems reviewed and no additional remarkable complaints except as stated. - Results CBC & Chem 7: 01/04/19 01:49 01/04/19 01:49 - Exam Vitals: Temp Pulse Resp BP Pulse Ox 98.3 F 109 18 180/75 94 01/03/19 06:40 01/03/19 06:40 01/03/19 06:40 01/03/19 06:40 01/03/19 06:40 Exam: Head: Atraumatic, normal inspection, normocephalic. Eye: EOMI, PERRLA, no scleral icterus noted. ENT: Mucous membranes moist. No odontogenic infection noted. Neck: Normal inspection, no meningismus. Respiratory: Clear to auscultation. No rales, respiratory distress, rhonchi, or wheezes noted. Cardiovascular: Regular rate and irregular rhythm, S1 and S2 audible. No murmurs, rubs, or gallops. GI: Soft, nondistended, normal bowel sounds. Extremities: Mild edema noted to the right knee. Tenderness noted on palpation of the lateral aspect of the right knee. Range of motion intact, but limited due to pain. No erythema or warmth noted. Back: Normal inspection. No vertebral tenderness noted. Neurological: Alert, oriented 3, no focal deficits. Psychiatric: normal affect, normal mood. Skin: Dry, intact, warm. Normal color. No rashes. Metoprolol XL (24 HR) Succ [Toprol Xl] 50 mg PO QAM 08/03/15 [History] Nitroglycerin 0.4 mg SL Q5MIN PRN #30 tab.subl 08/04/15 [Rx] Aspirin Enteric Coated [Aspirin EC] 81 mg PO DAILY 12/28/17 [History] Insulin Glargine [Lantus] 20 unit SQ QAM 12/28/17 [History] Insulin Glargine [Lantus] 40 unit SQ QPM 12/28/17 [History] Insulin LISPRO [HumaLOG] 15 - 20 unit SQ TID 12/28/17 [History] Warfarin [Coumadin] 6 mg PO SUTUWETHFRSA 12/28/17 [History] cloNIDine HCl [Clonidine HCl] 0.3 mg PO BID 12/28/17 [History] Allopurinol [Zyloprim 300 MG] 300 mg PO DAILY 01/01/19 [History] Latanoprost [Xalatan] 1 drop BOTH EYES HS 01/01/19 [History] Liraglutide [Victoza 3-João] 1.8 mg SQ DAILY 01/01/19 [History] Timolol Maleate 0.5% 1 drop BOTH EYES QAM 01/01/19 [History] Warfarin [Coumadin] 3 mg PO MO 01/01/19 [History] Diltiazem CD (24hr) [Cardizem CD] 240 mg PO DAILY #60 cap.er.24h 01/04/19 [Rx] Allergy/AdvReac Type Severity Reaction Status Date / Time rosuvastatin [From Crestor] Allergy LEGS HURT Verified 03/30/18 10:07 Rfxsnkp-Vjb-Aum Reductase AdvReac Itching, Verified 01/01/19 12:05 Inhibitor Cramping [Statins] - Assessment and Plan (1) SIRS (systemic inflammatory response syndrome) Status: Acute The patient had to search criteria on admission. Likely secondary to right knee pain and lack of taking his home medications for his A. fib. Improved. Continues times intermittent tachycardia, but WBC improved. Blood cultures drawn 12/31/18 are no growth to date 2 sets. SNOMED Code(s): 058353323 (2) Right knee pain Status: Acute Location: Right knee. Etiology: Likely secondary to right knee effusion. X-ray of the right knee showed a nonspecific large right knee joint effusion. The patient denies any recent trauma. He does tell me he had a joint injection back in September. Status post bedside arthrocentesis that yielded 25 mL's of turbid fluid. TMC was positive for greater than 100,000. 99% segmented neutrophils. Gram stain and culture are negative. Crystals negative. ESR 89. Orthopedics consulted. No operative debridement planned at this time. Currently on vancomycin and Rocephin. Qualifiers: Chronicity: acute Qualified Code(s): M25.561 - Pain in right knee SNOMED Code(s): 78058007 (3) Trauma of toe of right foot Status: Acute Podiatry consulted and following. Qualifiers: Encounter type: initial encounter Qualified Code(s): S99.921A - Unspecified injury of right foot, initial encounter SNOMED Code(s): 864548759 (4) Elevated troponin Status: Acute No chest pain. Further workup and management per the primary team. SNOMED Code(s): 106704754, 324791234, 602213585 (5) HLD (hyperlipidemia) Status: Chronic Qualifiers: Hyperlipidemia type: unspecified Qualified Code(s): E78.5 - Hyperlipidemia, unspecified SNOMED Code(s): 77669373 (6) CKD (chronic kidney disease) stage 3, GFR 30-59 ml/min Status: Chronic SNOMED Code(s): 439581752 (7) CAD (coronary artery disease) Status: Chronic Qualifiers: Coronary Disease-Associated Artery/Lesion type: [place] artery [place] vs. transplanted heart: [place] heart Associated angina: angina presence unspecified Qualified Code(s): I25.10 - Atherosclerotic heart disease of [place] coronary artery without angina pectoris SNOMED Code(s): 52176613 (8) Status post total left knee replacement Status: Chronic SNOMED Code(s): 2136277640784, 3409771761067 (9) Gout Status: Chronic Qualifiers: Gout site: unspecified site Gout etiology: unspecified cause Chronicity: unspecified Qualified Code(s): M10.9 - Gout, unspecified SNOMED Code(s): 50766659 (10) Insulin dependent diabetes mellitus Status: Chronic SNOMED Code(s): 38583673 (11) HTN (hypertension) Status: Chronic Qualifiers: Hypertension type: unspecified Qualified Code(s): I10 - Essential (primary) hypertension SNOMED Code(s): 13944678 - Recommendations Recommendations: Likely non-infectious/inflammatory arthritis with low likelihood of infection. Low index of suspicion of tick-borne illness since no thrombocytopenia, elevated LFTs, leukopenia, etc. Recommend stopping antibiotics and observing. No further recommendations from the ID team. We will sign off. Please re-consult if needed. Past Med Surg Social Fam HX - Past Medical History Medical history: CHF, coronary artery disease, diabetes, GERD, hyperlipidemia, hypertension, myocardial infarction Additional medical history: kidney disease, [place] - August 02, 2015, 1-stent in heart, 2-in femoral artery Psychiatric history: no psych history - Past Surgical History Surgical History: knee replacement Additional surgical history: heart cath with stent - abdominal stents x 2. left arm - tore muscle tricep - Social History Smoking Status: Former smoker Packs per day: 3 for 10 years Smokeless Tobacco Status: No Alcohol use: none Drug use: none - Family History Father Living Status: Mother Adopted: No Family Member Ethnicity: Non- Living Status: Hx Family Cardiac Disorders: No Hx Family Respiratory Disorders: No Hx Family Cancer: Yes (Lung cancer) Consult Discharge Plan - Plan Referrals: Danni Delgado PAC [Physician Disintegrator Feeder] - 01/07/19 9:45 am Gaby Rueda [Advanced Practice Nurse] - 01/17/19 10:40 am Joselin Angeles MD [Partnered Physician] - 01/21/19 11:50 am Prescriptions: Diltiazem CD (24hr) [Cardizem CD] 240 mg PO DAILY #60 cap.er.24h - Attending Attestation I have personally performed a face to face evaluation on this patient. I have reviewed and agree with the care plan. History and Exam by me shows: This is an addendum to original report dictated by Gaby Wiley CNP. Please refer to Gaby's note for full detail. Assessment and plan: Right knee pain. No signs of infection on Gram stain or cultures. Even though WBC is over 100,000 with 99% segmented neutrophils there is no signs of infection clinically. No edema no erythema no warmth to touch. Recommendations at this point we can just and observe. It could be due to inflammatory versus autoimmune versus other. Uric acid has not been checked but crystals were negative on evaluation. If patient has recurrent of symptoms and signs of infection we should reevaluate and repeat arthrocentesis and Gram stain is positive or cultures we will start antibiotics at that time.
[2019-01-03] MEDS: Diltiazem CD (24hr) 240 MG CAPSULE PO SCH (10:37)
--- NOTE | 2019-01-03 11:26 | Electrocardiograph Report ---
[place] [address] Test Date: 2019-01-02 Pat Name: Bryce Camilo Department: 114 Room: [facility] Gender: M Line Producer: : [id number] Requested By: Miguel Nuno Order Number: [id number] Reading MD: Gillian Callaway Measurements Intervals [place] Rate: 106 P: [place]: 0 QRS: 23 QRSD: 96 T: 113 QT: 341 QTc: 403 Interpretive Statements ATRIAL FIBRILLATION WITH RAPID VENTRICULAR RESPONSE NONSPECIFIC ST & T-WAVE ABNORMALITY Electronically Signed On 01-03-2019 11:24:42 EDT by Gillian Callaway
--- NOTE | 2019-01-03 11:34 | Podiatry Progress Note ---
Date of Encounter: 01/03/19 Time of Encounter: 11:15 - Assessment and Plan (1) Trauma of toe of right foot Current Visit: Yes Status: Acute Assessment: Hyperkeratosis noted to toes #2, #3 right foot Eschar noted to distal tip near nail toes #2, #3 CFT <3 seconds to all digits RLE WBC 12.8 No erythema, no edema, no cellulitis, no lymphangitis noted Dependent rubor noted Plan: Callus lesion 2, DIPJ #2, #3 right foot, sharp cutting performed with a #15 scalpel blade to alleviate pressure and prevent ulceration Painted DIPJ #2, #3 with betadine Scant bleeding noted to digit #2, bandaid placed to digit #2 No open lesion noted Follow up outpatient for diabetic foot care. Please make appointment prior to d/c. . Qualifiers: Encounter type: initial encounter Qualified Code(s): S99.921A - Unspecified injury of right foot, initial encounter Subjective Principal diagnosis: Right knee effusion Interval history: Patient awake in chair. Reports overall well being. States he is going home today. Denies any fevers, chills, nausea, vomiting, or diarrhea. Denies any calf pain, chest pain, or shortness of breath. No other questions or concerns at this time Objective - Vital Signs Vital Signs: Vital Signs Temp Pulse Resp BP Pulse Ox 01/03/19 11:06 97.6 F 114 18 152/75 94 01/03/19 10:41 18 94 01/03/19 06:40 98.3 F 109 18 180/75 94 01/03/19 05:26 185/75 01/03/19 04:26 97.8 F 103 18 191/76 96 01/02/19 22:44 98.3 F 112 18 128/82 97 01/02/19 22:04 94 01/02/19 21:21 177/87 01/02/19 20:53 18 97 01/02/19 19:15 97.9 F 104 17 94 01/02/19 16:05 16 98 01/02/19 15:27 98.2 F 100 20 169/84 96 01/02/19 12:04 98.5 F 88 18 157/81 98 Intake and Output 01/02/19 01/03/19 01/03/19 23:59 07:59 15:59 Intake Total 400 / 790 50.0 / 580.0 530 / 580.0 Output Total 450 / 2500 850 / 1050 200 / 1050 Balance -50 / -1710 -800.0 / -470.0 330 / -470.0 Intake: IV Fluids 250 / 520 50.0 / 100.0 50 / 100.0 Cardizem 50 MG In 0.9 % Sodium 50.0 / 100.0 50 / 100.0 Chloride 40 ML @ 5 MG/HR 5 mls/ hr IVC CONT TEJAL Rx#:[id number] Vancocin 1,000 MG In 0.9 % 250 / 250 Sodium Chloride 250 ML @ 166. 667 mls/hr IVPB Q12H TEJAL Rx#: [id number] Oral 150 / 270 480 / 480 Output: Urine 450 / 2500 850 / 1050 200 / 1050 Other: Meal popcorn Breakfast Percent of Meal Consumed 100% 100% Weight 112.6 kg Blood Glucose* 289 189 349 Patient Weight 01/03/19 23:59 Weight 112.6 kg - Exam Exam: Constitiutional: Alert and oriented x 3. Well nourished. No acute distress noted Vascular: 1/4 DP/PT RLE, CFT <3 sec to all digits RLE, warm to warm from tibia to toes RLE, no calf pain with squeeze RLE Neurologic: Diminished sensation to touch, normal plantar response Dermatologic: Skin W/D/I. Eschar noted to DIPJ #2, #3. hyperkeratosis noted to surrounding tissue. No erythema, no edema noted. No cellulitis or lymphangitis noted. Musculoskeletal: 5/5 muscle strength and normal tone RLE. - Lab Result Diagrams: 01/03/19 06:01 01/03/19 06:01 Labs: Abnormal lab results WBC 12.8 K/mcL (4.3-11.1) H 01/03/19 06:01 RBC 5.52 M/mcL (4.19-5.50) H 12/30/18 19:09 Hgb 17.7 g/dL (12.9-16.9) H 12/30/18 19:09 Hct 51.4 % (37.5-50.1) H 12/30/18 19:09 RDW 14.6 % (11.5-14.5) H 01/03/19 06:01 10.4 K/mcL (1.6-8.9) H 12/31/18 02:20 1.9 K/mcL (0.0-1.3) H 12/31/18 02:20 ESR 89 mm/hr (0-10) H 12/30/18 19:09 PT 20.3 Seconds (9.4-12.1) H 01/03/19 06:01 APTT 52.8 Seconds (26.0-36.0) H 12/30/18 19:09 Sodium 133 mEq/L (136-145) L 01/02/19 01:51 Chloride 97 mEq/L (98-107) L 12/31/18 02:20 Carbon Dioxide 20 mEq/L (23-29) L 01/03/19 06:01 BUN 24 mg/dL (8-23) H 01/01/19 03:55 Est GFR (Non-Af Amer) 58 (> 60) L 01/01/19 03:55 Glucose 221 mg/dL (70-105) H 01/03/19 06:01 POC Glucose 228 mg/dL (70-99) H 01/02/19 15:30 6.7 % (-5.6) H 12/31/18 02:20 Phosphorus 2.5 mg/dL (2.7-4.5) L 01/02/19 01:51 Magnesium 1.5 mg/dL (1.6-2.6) L 01/03/19 06:01 0.05 ng/mL (< 0.04) H* 12/30/18 19:09 [place] (Yellow) A 12/30/18 21:10 100 mg/dL (Neg-Trace) H 12/30/18 21:10 100 mg/dL (Normal) H 12/30/18 21:10 Trace mg/dL (Negative) H 12/30/18 21:10 Moderate (Negative) H 12/30/18 21:10 4.0 mg/dL (Normal) H 12/30/18 21:10 Ur Leukocyte Esterase Small (Negative) H 12/30/18 21:10 3-5 per hpf (0-3) H 12/30/18 21:10 5-15 per hpf (0-3) H 12/30/18 21:10 Ur Squamous Epith Cells Many per lpf (None-Few) H 12/30/18 21:10 Ur Culture Indicated? YES (NO) A 12/30/18 21:10 Synovial Appearance Cloudy (Clear-Hazy) A 12/30/18 22:00 Synovial RBC 0.036 M/mcl (0.000-0.002) H 12/30/18 22:00 Synovial Tot Nuc Cell > 540420 TNC/mcL (0-200) H 12/30/18 22:00 Vancomycin Trough 17 mcg/mL (5-10) H 01/02/19 01:51 Microbiology, Last 48 Hours 12/30/18 22:00 Body Fluid Culture - Final Synovial Fluid 12/30/18 21:10 Urine Culture - Final Urine,Clean Catch Consult Discharge Plan - Plan Referrals: NONE,PCP [Primary Care Provider] -
[2019-01-03] MEDS ORDERED: *HR* Warfarin 3 MG TABLET PO ONE (18:00)
[2019-01-04 02:07] LABS: Basophils # 0.1 K/mcL (0.0-0.2); Eosinophils # 0.4 K/mcL (0.0-0.6); Eosinophils % 2.9 %; Hematocrit 44.3 % (37.5-50.1); Hemoglobin 15.4 g/dL (12.9-16.9); Immature Granulocytes % 0.8 % (0-4); Lymphocytes % 22.8 %; Mean Corpuscular HGB Conc 34.8 g/dL (31.6-35.5); Mean Corpuscular Hemoglobin 32.4 pg (28.0-33.3); Mean Corpuscular Volume 93.3 fL (83.0-100.0); Monocytes % 7.7 %; Neutrophils # 8.7 K/mcL (1.6-8.9); Platelet Count 302 K/mcL (140-400); Red Blood Count 4.75 M/mcL (4.19-5.50); Red Cell Distribution Width 14.4 % (11.5-14.5); Segmented Neutrophils % 64.8 %; White Blood Count 13.3 K/mcL (4.3-11.1)
[2019-01-04 02:15] LABS: INR 1.8; Prothrombin Time 20.9 Seconds (9.4-12.1)
[2019-01-04 02:24] LABS: BUN/Creatinine Ratio 21 (6-26); Blood Urea Nitrogen 21 mg/dL (8-23); Calcium 9.1 mg/dL (8.6-10.3); Carbon Dioxide 20 mEq/L (23-29); Chloride 101 mEq/L (98-107); Glucose 277 mg/dL (70-105); Magnesium 1.8 mg/dL (1.6-2.6); Osmolality,Calculated 289 (280-300); Phosphorous 2.9 mg/dL (2.7-4.5); Sodium 133 mEq/L (136-145); eGFR For African Americans > 60 (> 60); eGFR For Non-African Americans > 60 (> 60)
[2019-01-04] MEDS: Ipratropium/Albuterol Neb 3 ML IH SCH ×2 (03:50→10:22)
[2019-01-04] MEDS: cloNIDine HCl 0.1 MG TABLET PO SCH (08:19)
[2019-01-04] MEDS: Insulin LISPRO 300 UNITS/3 ML VIAL SQ SCH ×2 (08:19→12:41)
[2019-01-04] MEDS: Diltiazem CD (24hr) 240 MG CAPSULE PO SCH (08:19)
[2019-01-04] MEDS: Cholecalciferol (D-3) 1,000 UNIT TABLET PO SCH (08:19)
[2019-01-04] MEDS: Aspirin Enteric Coated 81 MG Tablet PO SCH (08:19)
[2019-01-04] MEDS: Artificial Tears SOLN 15 ML BOTTLE BOTH EYES SCH ×2 (08:19→12:42)
[2019-01-04] MEDS: cefTRIAXone 2,000 MG in Water for inj. (sterile) 20 ML IVPB SCH (08:20)
[2019-01-04] MEDS: Metoprolol XL (24 HR) Succ 50 MG TAB.ER.24H PO SCH (08:20)
[2019-01-04] MEDS: (Fish Oil 1,000 Mg Softgel) PO SCH (08:21)
--- NOTE | 2019-01-04 08:51 | Discharge Summary ---
Date of Encounter: 01/04/19 Time of Encounter: 11:00 - Discharge Diagnosis (1) Septic arthritis Priority: Primary Status: Acute Assessment and Plan: 78 year old man with multiple comorbidities limiting diabetes, hypertension, hy perlipidemia, chronic kidney disease, coronary artery and peripheral vascular disease, gout and sleep apnea. He has previously undergone left knee replacement and is currently undergoing steroid injections every so often into his right knee for osteoarthritic pains with his last shot being 3 months ago. He comes to the ER complaining of right knee pain and has been increasing over the last 3-4 days and he is now unable to get out of his chair. He was also notably tachycardic on arrival and found to be in A. fib with RVR. His knee was diffusely warm and tender to touch notable effusion palpable so a bedside sign of fluid aspiration was done, seen to be macroscopically cloudy and cellularity showing greater than 100,000 white blood cells with 99% neutrophils and no crystals identified. He was assesed with right knee effusion s/p multiple steroid injections and leukocytosis hernán r/o septic arthritis. Arthrocentesis was done and synovial fluid had greater than 100 000 WBCs suggestive of septic arthritis. Gram stain and cultures of synovial fluid came back negative. He was seen by orthopedic surgery who determined there was no indication for a debridement. ID saw him and are not convinced he has septic arthritis and recommend stopping antibiotics. He most likely has an inflammatory arthritis and will follow up with his PCP. He also had Afib withr RVR and was on a cardizem drip which has been weaned to po cardizem on discharge. 35 minutes was spent discharging this patient Qualifiers: Septic arthritis location: knee Septic arthritis organism: due to unspecified organism Laterality: right Qualified Code(s): M00.9 - Pyogenic arthritis, unspecified (2) Atrial fibrillation with RVR Priority: Primary Status: Acute (3) Trauma of toe of right foot Priority: Primary Status: Acute Qualifiers: Encounter type: initial encounter Qualified Code(s): S99.921A - Unspecified injury of right foot, initial encounter (4) HTN (hypertension) Priority: Primary Status: Chronic Qualifiers: Hypertension type: unspecified Qualified Code(s): I10 - Essential (primary) hypertension (5) Diabetes mellitus Priority: Primary Status: Acute Qualifiers: Qualified Code(s): E11.9 - Type 2 diabetes mellitus without complications (6) Elevated troponin Priority: Primary Status: Acute (7) DVT prophylaxis Priority: Primary Status: Acute Hospital course: Mr. Camilo is a 78 year old male - Time Spent with Patient Total time spent providing and/or coordinating discharge services: - Discharge Medications Prescriptions: New Diltiazem CD (24hr) [Cardizem CD] 240 mg PO DAILY #60 cap.er.24h Continued Metoprolol XL (24 HR) Succ [Toprol Xl] 50 mg PO QAM Nitroglycerin 0.4 mg SL Q5MIN PRN #30 tab.subl PRN Reason: Chest Pain Aspirin Enteric Coated [Aspirin EC] 81 mg PO DAILY cloNIDine HCl [Clonidine HCl] 0.3 mg PO BID Warfarin [Coumadin] 6 mg PO SUTUWETHFRSA Insulin Glargine [Lantus] 20 unit SQ QAM Insulin Glargine [Lantus] 40 unit SQ QPM Insulin LISPRO [HumaLOG] 15 - 20 unit SQ TID Allopurinol [Zyloprim 300 MG] 300 mg PO DAILY Latanoprost [Xalatan] 1 drop BOTH EYES HS Liraglutide [Victoza 3-Jooã] 1.8 mg SQ DAILY Timolol Maleate 0.5% 1 drop BOTH EYES QAM Warfarin [Coumadin] 3 mg PO MO Home Medications: Metoprolol XL (24 HR) Succ [Toprol Xl] 50 mg PO QAM 08/03/15 [History] Nitroglycerin 0.4 mg SL Q5MIN PRN #30 tab.subl 08/04/15 [Rx] Aspirin Enteric Coated [Aspirin EC] 81 mg PO DAILY 12/28/17 [History] Insulin Glargine [Lantus] 20 unit SQ QAM 12/28/17 [History] Insulin Glargine [Lantus] 40 unit SQ QPM 12/28/17 [History] Insulin LISPRO [HumaLOG] 15 - 20 unit SQ TID 12/28/17 [History] Warfarin [Coumadin] 6 mg PO SUTUWETHFRSA 12/28/17 [History] cloNIDine HCl [Clonidine HCl] 0.3 mg PO BID 12/28/17 [History] Allopurinol [Zyloprim 300 MG] 300 mg PO DAILY 01/01/19 [History] Latanoprost [Xalatan] 1 drop BOTH EYES HS 01/01/19 [History] Liraglutide [Victoza 3-João] 1.8 mg SQ DAILY 01/01/19 [History] Timolol Maleate 0.5% 1 drop BOTH EYES QAM 01/01/19 [History] Warfarin [Coumadin] 3 mg PO MO 01/01/19 [History] Diltiazem CD (24hr) [Cardizem CD] 240 mg PO DAILY #60 cap.er.24h 01/04/19 [Rx] Allergies/Adverse Reactions: Allergy/AdvReac Type Severity Reaction Status Date / Time rosuvastatin [From Crestor] Allergy LEGS HURT Verified 03/30/18 10:07 [id number] Reductase AdvReac Itching, Verified 01/01/19 12:05 Inhibitor Cramping [Statins] Date of admission: 12/31/18 00:12 Primary care physician: PCP NONE Consults: 12/31/18 00:04 Consult to Orthopedic Surgery [CONS] Routine Consulting Provider: [facility] Reason for Consult: Septic right knee Call Completed: Yes 12/31/18 12:50 Consult to Podiatry [CONS] Routine Consulting Provider: Podiatry [facility] Reason for Consult: multiple toe tips has ulcers, possible ischemia Call Completed: Yes 01/02/19 08:41 Consult to Infectious Diseases [CONS] Routine Consulting Provider: [facility] Reason for Consult: septic arthritis? query duration of abx Call Completed: No 01/03/19 08:29 Consult to Physical Therapy [CONS] Routine Comment: Evaluate, develop and implement POC Reason for Consult: weakness Does patient have active BEDREST order?: No Is patient medically & hemodynamically stable?: Yes Patient assessed for mobility or mobilized this visit?: No 01/03/19 08:30 Consult to Occupational Therapy [CONS] Routine Comment: Evaluate, develop and implement POC Reason for Consult: weakness Does patient have active BEDREST order?: No Is patient medically & hemodynamically stable?: Yes Patient assessed for mobility or mobilized this visit?: No - Constitutional Vitals: Temp Pulse Resp BP Pulse Ox 97.4 F L 125 17 160/82 94 01/04/19 06:49 01/04/19 06:49 01/04/19 06:49 01/04/19 06:49 01/04/19 06:49 Exam: General appearance: Present: A&O X 3, no acute distress Head exam: Present: normocephalic Respiratory exam: Present: CTAB. Absent: accessory muscle use, rales, rhonchi, wheezes Cardiovascular exam: Present: RRR, +S1, +S2. Absent: diastolic murmur, gallop, rubs, systolic murmur GI/Abdominal exam: Soft, NT, ND, +BS Extremities exam: Absent: pedal edema Neurological exam: Present: alert, oriented X3, no focal deficits. Absent: altered - Patient Status Disposition: Home, Self-Care Condition: Good - Discharge Instructions Follow Up With: NONE,PCP [Primary Care Provider] -
[2019-01-04 12:05] VITALS: BP 153/74
--- NOTE | 2019-01-04 12:14 | Physician Discharge Referral ---
Home Health/Hosp Referral Info Transfer to: Home Health - Diagnosis (1) Septic arthritis Priority: Primary Status: Acute (2) Atrial fibrillation with RVR Priority: Primary Status: Acute (3) Trauma of toe of right foot Priority: Primary Status: Acute (4) HTN (hypertension) Priority: Primary Status: Chronic (5) Diabetes mellitus Priority: Primary Status: Acute (6) Elevated troponin Priority: Primary Status: Acute (7) DVT prophylaxis Priority: Primary Status: Acute - Respiratory Orders Smoking Cessation: Smoking cessation has been advised. For more information, call the [place] Tobacco Quit Line at 4-952-BETA-NOW. - Activity Activity Orders: Ambulate - Services Needed Following services are medically necessary services: Nursing, Home Health Aide, Physical Therapy - Transfer Medications Prescriptions: Diltiazem CD (24hr) [Cardizem CD] 240 mg PO DAILY #60 cap.er.24h Home Medications: Metoprolol XL (24 HR) Succ [Toprol Xl] 50 mg PO QAM 08/03/15 [History] Nitroglycerin 0.4 mg SL Q5MIN PRN #30 tab.subl 08/04/15 [Rx] Aspirin Enteric Coated [Aspirin EC] 81 mg PO DAILY 12/28/17 [History] Insulin Glargine [Lantus] 20 unit SQ QAM 12/28/17 [History] Insulin Glargine [Lantus] 40 unit SQ QPM 12/28/17 [History] Insulin LISPRO [HumaLOG] 15 - 20 unit SQ TID 12/28/17 [History] Warfarin [Coumadin] 6 mg PO SUTUWETHFRSA 12/28/17 [History] cloNIDine HCl [Clonidine HCl] 0.3 mg PO BID 12/28/17 [History] Allopurinol [Zyloprim 300 MG] 300 mg PO DAILY 01/01/19 [History] Latanoprost [Xalatan] 1 drop BOTH EYES HS 01/01/19 [History] Liraglutide [Victoza 3-João] 1.8 mg SQ DAILY 01/01/19 [History] Timolol Maleate 0.5% 1 drop BOTH EYES QAM 01/01/19 [History] Warfarin [Coumadin] 3 mg PO MO 01/01/19 [History] Diltiazem CD (24hr) [Cardizem CD] 240 mg PO DAILY #60 cap.er.24h 01/04/19 [Rx] Allergies/Adverse Reactions: Allergy/AdvReac Type Severity Reaction Status Date / Time rosuvastatin [From Crestor] Allergy LEGS HURT Verified 03/30/18 10:07 [id number] Reductase AdvReac Itching, Verified 01/01/19 12:05 Inhibitor Cramping [Statins] Certification: Further, I certify that my clinical findings support that this patient is homebound (i.e. absences from home require considerable and taxing effort and are for medical reasons or tenriism services or infrequently or short duration when for other reasons) because: Homebound Reason: Patient requires assistance of a person or device to safely leave home Attestation: My signature below is to certify that this patient is under my care and that I, or nurse practitioner, or a physician's congressional assistant working with me, has a [id number] encounter with this patient.
[2019-01-04] MEDS ORDERED: Aminoglycoside Consult 1 EACH MC ONE (15:29)
[2019-01-04] MEDS ORDERED: *HR* Warfarin 3 MG TABLET PO ONE (18:00)
== END 2019-01-04 15:30 | disposition home or self-care (01) | DRG 549 ==
LOC: EMEROOARM 18:11 → CDU 18:11 → 3NENU 12-31 14:04
PROVIDERS: ADMIT Internal Medicine; ATTEND Internal Medicine

== ENCOUNTER 2019-10-21 13:55 | Inpatient (IN) ==
[2019-10-21 14:50] LABS: INR 2.1; Prothrombin Time 24.1 Seconds (9.4-12.1)
[2019-10-21 14:53] LABS: Activated Partial Thrombo Time 45.8 Seconds (26.0-36.0); Basophils # 0.1 K/mcL (0.0-0.2); Basophils % 0.7 %; Eosinophils % 0.3 %; Hematocrit 54.4 % (37.5-50.1); Hemoglobin 18.6 g/dL (12.9-16.9); Immature Granulocytes % 0.4 % (0-4); Lymphocytes # 3.5 K/mcL (0.6-4.6); Lymphocytes % 27.4 %; Mean Corpuscular HGB Conc 34.2 g/dL (31.6-35.5); Mean Corpuscular Volume 96.5 fL (83.0-100.0); Mean Platelet Volume 11.6 fL (9.4-12.4); Monocytes % 7.9 %; Neutrophils # 8.1 K/mcL (1.6-8.9); Platelet Count 275 K/mcL (140-400); Red Blood Count 5.64 M/mcL (4.19-5.50); Red Cell Distribution Width 16.6 % (11.5-14.5); Segmented Neutrophils % 63.3 %; White Blood Count 12.8 K/mcL (4.3-11.1)
[2019-10-21 14:56] LABS: Calcium 9.9 mg/dL (8.6-10.3)
[2019-10-21 15:07] LABS: Troponin I 0.04 ng/mL (< 0.04)
[2019-10-21] MEDS ORDERED: Acetaminophen 325 MG TABLET PO PRN (17:36)
[2019-10-21] MEDS ORDERED: Naloxone 0.4 MG/ML INJ IVP PRN (17:36)
[2019-10-21] MEDS ORDERED: Ondansetron 4 MG/2 ML VIAL IVP PRN (17:36)
[2019-10-21] MEDS ORDERED: Dextrose Gel 15 GM/37.5 ML TUBE PO PRN ×2 (19:40)
[2019-10-21] MEDS ORDERED: *HR* Dextrose 50 % in Water (Syg) 50 ML SYRINGE IVP PRN (19:40)
[2019-10-21] MEDS ORDERED: D5% in Water 1,000 ML IVC PRN (19:40)
[2019-10-21] MEDS ORDERED: Nitroglycerin 0.4 MG TAB.SUBL SL PRN (19:56)
[2019-10-21] MEDS ORDERED: Insulin LISPRO 300 UNITS/3 ML VIAL SQ SCH (21:00)
[2019-10-21] MEDS: Insulin LISPRO 300 UNITS/3 ML VIAL SQ SCH (21:05)
[2019-10-21] MEDS: Ringers Solution, Lactated 1,000 ML IVC SCH (21:06)
[2019-10-21] MEDS: cloNIDine HCL 0.1 MG TABLET PO SCH (21:06)
[2019-10-21] MEDS: Latanoprost 2.5 ML BOTTLE BOTH EYES SCH (21:07)
[2019-10-21] MEDS ORDERED: *HR* Warfarin 3 MG TABLET PO ONE (21:30)
[2019-10-22 04:50] LABS: INR 2.3; Prothrombin Time 26.3 Seconds (9.4-12.1)
[2019-10-22 05:17] LABS: Thyroid Stimulating Hormone 2.789 mcIU/mL (0.340-5.600); Troponin I 0.03 ng/mL (< 0.04)
[2019-10-22 07:48] LABS: Estimated Average Glucose 140 mg/dl
[2019-10-22] MEDS: Insulin LISPRO 300 UNITS/3 ML VIAL SQ SCH ×4 (07:54→21:59)
[2019-10-22] MEDS: Ringers Solution, Lactated 1,000 ML IVC SCH (07:54)
[2019-10-22] MEDS: Aspirin Enteric Coated 81 MG Tablet PO SCH (07:55)
[2019-10-22] MEDS: Metoprolol XL (24 HR) Succ 50 MG TAB.ER.24H PO SCH (07:55)
[2019-10-22] MEDS: allopurinoL 300 MG TABLET PO SCH (07:55)
[2019-10-22] MEDS: cloNIDine HCL 0.1 MG TABLET PO SCH ×2 (07:55→21:58)
[2019-10-22 08:41] LABS: Basophils # 0.1 K/mcL (0.0-0.2); Basophils % 0.7 %; Eosinophils # 0.1 K/mcL (0.0-0.6); Eosinophils % 0.7 %; Hematocrit 51.2 % (37.5-50.1); Hemoglobin 17.2 g/dL (12.9-16.9); Immature Granulocytes % 0.4 % (0-4); Lymphocytes # 3.3 K/mcL (0.6-4.6); Mean Corpuscular HGB Conc 33.6 g/dL (31.6-35.5); Mean Corpuscular Hemoglobin 32.7 pg (28.0-33.3); Mean Corpuscular Volume 97.3 fL (83.0-100.0); Monocytes % 8.3 %; Neutrophils # 7.6 K/mcL (1.6-8.9); Platelet Count 234 K/mcL (140-400); Red Blood Count 5.26 M/mcL (4.19-5.50); Red Cell Distribution Width 16.2 % (11.5-14.5); Segmented Neutrophils % 62.9 %; White Blood Count 12.1 K/mcL (4.3-11.1)
[2019-10-22 08:59] LABS: Calcium 9.6 mg/dL (8.6-10.3); Magnesium 1.8 mg/dL (1.6-2.6); Potassium 4.6 mEq/L (3.5-5.1)
[2019-10-22] MEDS ORDERED: levoFLOXacin 750 MG/150 ML 750 MG/150 ML BAG IVPB SCH (13:00)
[2019-10-22] MEDS ORDERED: *HR* Dextrose 50 % in Water (Syg) 50 ML SYRINGE IVP PRN (13:03)
[2019-10-22] MEDS ORDERED: Dextrose Gel 15 GM/37.5 ML TUBE PO PRN ×2 (13:03)
[2019-10-22] MEDS ORDERED: D5% in Water 1,000 ML IVC PRN (13:03)
[2019-10-22 14:45] LABS: Adenovirus Not Detected (Not Detect); Bordetella Pertussis Not Detected (Not Detect); Chlamydophila pneumoniae Not Detected (Not Detect); Coronavirus 229E Not Detected (Not Detect); Coronavirus HKU1 Not Detected (Not Detect); Coronavirus NL63 Not Detected (Not Detect); Coronavirus OC43 Not Detected (Not Detect); Human Metapneumovirus Not Detected (Not Detect); Human Rhinovirus/Enterovirus Not Detected (Not Detect); Influenza A Subtype 2009 H1 Not Detected (Not Detect); Influenza B Not Detected (Not Detect); Mycoplasma pneumoniae Not Detected (Not Detect); Parainfluenza Virus 1 Not Detected (Not Detect); Parainfluenza Virus 2 Not Detected (Not Detect); Parainfluenza Virus 3 Not Detected (Not Detect); Parainfluenza Virus 4 Not Detected (Not Detect); Respiratory Syncytial Virus Not Detected (Not Detect)
[2019-10-22] MEDS ORDERED: Warfarin perPT PO PRN (18:00)
[2019-10-22] MEDS ORDERED: *HR* Warfarin 3 MG TABLET PO ONE (18:00)
[2019-10-22] MEDS: Latanoprost 2.5 ML BOTTLE BOTH EYES SCH (22:02)
[2019-10-23 05:53] LABS: BUN/Creatinine Ratio 30 (6-26); Blood Urea Nitrogen 37 mg/dL (8-23); Calcium 9.6 mg/dL (8.6-10.3); Carbon Dioxide 23 mEq/L (23-29); Chloride 102 mEq/L (98-107); Glucose 110 mg/dL (70-105); Magnesium 1.7 mg/dL (1.6-2.6); Osmolality,Calculated 287 (280-300); Potassium 4.4 mEq/L (3.5-5.1); Sodium 134 mEq/L (136-145); eGFR For African Americans > 60 (> 60); eGFR For Non-African Americans 56 (> 60)
[2019-10-23 07:15] LABS: Basophils # 0.1 K/mcL (0.0-0.2); Basophils % 0.6 %; Eosinophils # 0.1 K/mcL (0.0-0.6); Eosinophils % 0.7 %; Hematocrit 51.7 % (37.5-50.1); Hemoglobin 17.1 g/dL (12.9-16.9); Immature Granulocytes % 0.6 % (0-4); Mean Corpuscular HGB Conc 33.1 g/dL (31.6-35.5); Mean Corpuscular Hemoglobin 32.4 pg (28.0-33.3); Mean Corpuscular Volume 98.1 fL (83.0-100.0); Mean Platelet Volume 11.4 fL (9.4-12.4); Monocytes % 9.4 %; Neutrophils # 6.2 K/mcL (1.6-8.9); Platelet Count 215 K/mcL (140-400); Red Blood Count 5.27 M/mcL (4.19-5.50); Red Cell Distribution Width 15.9 % (11.5-14.5); Segmented Neutrophils % 59.7 %; White Blood Count 10.4 K/mcL (4.3-11.1)
[2019-10-23 07:16] LABS: INR 2.5; Prothrombin Time 28.4 Seconds (9.4-12.1)
[2019-10-23] MEDS: cloNIDine HCL 0.1 MG TABLET PO SCH ×2 (07:43→21:46)
[2019-10-23] MEDS: Metoprolol XL (24 HR) Succ 50 MG TAB.ER.24H PO SCH (07:43)
[2019-10-23] MEDS: Aspirin Enteric Coated 81 MG Tablet PO SCH (07:43)
[2019-10-23] MEDS: allopurinoL 300 MG TABLET PO SCH (07:43)
[2019-10-23] MEDS: Insulin LISPRO 300 UNITS/3 ML VIAL SQ SCH ×4 (07:57→21:39)
[2019-10-23] MEDS ORDERED: Furosemide 40 MG/4 ML VIAL IVP ONE (08:15)
[2019-10-23] MEDS ORDERED: *HR* Warfarin 3 MG TABLET PO ONE (18:00)
[2019-10-23] MEDS: Latanoprost 2.5 ML BOTTLE BOTH EYES SCH (21:46)
[2019-10-24 06:43] LABS: Basophils # 0.1 K/mcL (0.0-0.2); Basophils % 0.6 %; Eosinophils # 0.1 K/mcL (0.0-0.6); Eosinophils % 0.5 %; Hematocrit 51.8 % (37.5-50.1); Hemoglobin 17.4 g/dL (12.9-16.9); Immature Granulocytes % 0.4 % (0-4); Lymphocytes # 2.8 K/mcL (0.6-4.6); Lymphocytes % 24.4 %; Mean Corpuscular HGB Conc 33.6 g/dL (31.6-35.5); Mean Corpuscular Hemoglobin 32.7 pg (28.0-33.3); Mean Corpuscular Volume 97.4 fL (83.0-100.0); Mean Platelet Volume 11.3 fL (9.4-12.4); Monocytes # 0.9 K/mcL (0.0-1.3); Monocytes % 7.9 %; Neutrophils # 7.5 K/mcL (1.6-8.9); Platelet Count 215 K/mcL (140-400); Red Blood Count 5.32 M/mcL (4.19-5.50); Segmented Neutrophils % 66.2 %; White Blood Count 11.3 K/mcL (4.3-11.1)
[2019-10-24 06:50] LABS: INR 2.4; Prothrombin Time 27.6 Seconds (9.4-12.1)
[2019-10-24 07:02] LABS: BUN/Creatinine Ratio 31 (6-26); Blood Urea Nitrogen 37 mg/dL (8-23); Calcium 9.5 mg/dL (8.6-10.3); Carbon Dioxide 21 mEq/L (23-29); Chloride 101 mEq/L (98-107); Glucose 136 mg/dL (70-105); Magnesium 1.6 mg/dL (1.6-2.6); Osmolality,Calculated 287 (280-300); Potassium 4.2 mEq/L (3.5-5.1); Sodium 133 mEq/L (136-145); eGFR For African Americans > 60 (> 60); eGFR For Non-African Americans 58 (> 60)
[2019-10-24] MEDS: Insulin LISPRO 300 UNITS/3 ML VIAL SQ SCH ×4 (08:00→20:40)
[2019-10-24] MEDS: allopurinoL 300 MG TABLET PO SCH (09:00)
[2019-10-24] MEDS ORDERED: Budesonide/Formoterol 80/4.5 1 PUFF INH IH PRN (09:01)
[2019-10-24] MEDS: Metoprolol XL (24 HR) Succ 50 MG TAB.ER.24H PO SCH (09:01)
[2019-10-24] MEDS: Aspirin Enteric Coated 81 MG Tablet PO SCH (09:01)
[2019-10-24] MEDS: cloNIDine HCL 0.1 MG TABLET PO SCH ×2 (09:02→20:51)
[2019-10-24] MEDS: Furosemide 40 MG TABLET PO SCH (11:41)
[2019-10-24 13:34] LABS: Angiotensin Converting Enzyme <5 U/L (9-67)
[2019-10-24 15:01] LABS: ANA IgG by ELISA DETECTED (None Detected); Serine Protease-3 Antibody 5 AU/mL (0-19)
[2019-10-24] MEDS ORDERED: *HR* Warfarin 3 MG TABLET PO ONE (18:00)
[2019-10-24] MEDS: Latanoprost 2.5 ML BOTTLE BOTH EYES SCH (20:52)
[2019-10-25 03:00] LABS: Basophils # 0.1 K/mcL (0.0-0.2); Basophils % 0.6 %; Eosinophils # 0.1 K/mcL (0.0-0.6); Eosinophils % 0.8 %; Hematocrit 50.6 % (37.5-50.1); Hemoglobin 17.4 g/dL (12.9-16.9); Immature Granulocytes % 0.5 % (0-4); Lymphocytes # 2.9 K/mcL (0.6-4.6); Lymphocytes % 26.3 %; Mean Corpuscular HGB Conc 34.4 g/dL (31.6-35.5); Mean Corpuscular Hemoglobin 33.4 pg (28.0-33.3); Mean Corpuscular Volume 97.1 fL (83.0-100.0); Mean Platelet Volume 11.1 fL (9.4-12.4); Monocytes # 0.9 K/mcL (0.0-1.3); Monocytes % 8.2 %; Neutrophils # 6.9 K/mcL (1.6-8.9); Platelet Count 235 K/mcL (140-400); Red Blood Count 5.21 M/mcL (4.19-5.50); Red Cell Distribution Width 15.9 % (11.5-14.5); Segmented Neutrophils % 63.6 %; White Blood Count 10.9 K/mcL (4.3-11.1)
[2019-10-25 03:05] LABS: INR 2.5; Prothrombin Time 27.9 Seconds (9.4-12.1)
[2019-10-25 03:23] LABS: BUN/Creatinine Ratio 28 (6-26); Blood Urea Nitrogen 37 mg/dL (8-23); Calcium 9.6 mg/dL (8.6-10.3); Carbon Dioxide 25 mEq/L (23-29); Chloride 99 mEq/L (98-107); Glucose 136 mg/dL (70-105); Magnesium 1.7 mg/dL (1.6-2.6); Osmolality,Calculated 287 (280-300); Phosphorous 3.4 mg/dL (2.7-4.5); Potassium 4.6 mEq/L (3.5-5.1); Sodium 133 mEq/L (136-145); eGFR For African Americans > 60 (> 60); eGFR For Non-African Americans 53 (> 60)
[2019-10-25] MEDS ORDERED: DilTIAZem CD (24hr) 120 MG CAP.ER.24H PO SCH (09:00)
[2019-10-25] MEDS: Insulin LISPRO 300 UNITS/3 ML VIAL SQ SCH ×4 (09:23→21:15)
[2019-10-25] MEDS: Aspirin Enteric Coated 81 MG Tablet PO SCH (09:24)
[2019-10-25] MEDS: allopurinoL 300 MG TABLET PO SCH (09:24)
[2019-10-25] MEDS: cloNIDine HCL 0.1 MG TABLET PO SCH ×2 (09:24→21:15)
[2019-10-25] MEDS: Furosemide 40 MG TABLET PO SCH (09:24)
[2019-10-25] MEDS: Metoprolol XL (24 HR) Succ 50 MG TAB.ER.24H PO SCH (09:24)
[2019-10-25] MEDS ORDERED: Furosemide 20 MG/2 ML VIAL IVP ONE (09:43)
[2019-10-25] MEDS ORDERED: DilTIAZem CD (24hr) 120 MG CAP.ER.24H PO ONE (13:40)
[2019-10-25] MEDS ORDERED: *HR* Warfarin 3 MG TABLET PO ONE (18:00)
[2019-10-25] MEDS: Latanoprost 2.5 ML BOTTLE BOTH EYES SCH (21:17)
[2019-10-26 05:37] LABS: INR 2.2; Prothrombin Time 25.1 Seconds (9.4-12.1)
[2019-10-26 05:58] LABS: BUN/Creatinine Ratio 32 (6-26); Blood Urea Nitrogen 43 mg/dL (8-23); Calcium 9.8 mg/dL (8.6-10.3); Carbon Dioxide 18 mEq/L (23-29); Chloride 98 mEq/L (98-107); Glucose 192 mg/dL (70-105); Magnesium 1.7 mg/dL (1.6-2.6); Osmolality,Calculated 288 (280-300); Phosphorous 3.3 mg/dL (2.7-4.5); Sodium 131 mEq/L (136-145); eGFR For African Americans > 60 (> 60); eGFR For Non-African Americans 50 (> 60)
[2019-10-26 07:12] VITALS: BP 127/64
[2019-10-26 08:16] LABS: ANA HEp-2 IgG IFA <1:80 (<1:80)
[2019-10-26] MEDS ORDERED: DilTIAZem CD (24hr) 120 MG CAP.ER.24H PO SCH (09:00)
[2019-10-26] MEDS: Insulin LISPRO 300 UNITS/3 ML VIAL SQ SCH (09:32)
[2019-10-26] MEDS: Aspirin Enteric Coated 81 MG Tablet PO SCH (09:33)
[2019-10-26] MEDS: cloNIDine HCL 0.1 MG TABLET PO SCH (09:34)
[2019-10-26] MEDS: Furosemide 40 MG TABLET PO SCH (09:34)
[2019-10-26] MEDS: Metoprolol XL (24 HR) Succ 50 MG TAB.ER.24H PO SCH (09:34)
[2019-10-26] MEDS: allopurinoL 300 MG TABLET PO SCH (09:34)
[2019-10-26] MEDS ORDERED: *HR* Warfarin 4 MG TABLET PO ONE (18:00)
== END 2019-10-26 14:47 | disposition home health service (06) ==
LOC: 2NENU 13:55 → EMEROOARM 13:55 → SUATTDRO 17:55 → 2NENU 19:30 → 3BNU 10-23 20:04
PROVIDERS: ADMIT Pharmacist; ATTEND Internal Medicine

== ENCOUNTER 2019-11-18 12:45 | Inpatient (IN) ==
[2019-11-18 13:47] LABS: Basophils # 0.1 K/mcL (0.0-0.2); Basophils % 0.5 %; Eosinophils % 0.3 %; Hematocrit 54.3 % (37.5-50.1); Hemoglobin 18.4 g/dL (12.9-16.9); Immature Granulocytes % 0.4 % (0-4); Lymphocytes # 2.5 K/mcL (0.6-4.6); Lymphocytes % 22.5 %; Mean Corpuscular HGB Conc 33.9 g/dL (31.6-35.5); Mean Corpuscular Hemoglobin 32.8 pg (28.0-33.3); Mean Corpuscular Volume 96.8 fL (83.0-100.0); Mean Platelet Volume 11.5 fL (9.4-12.4); Monocytes # 0.9 K/mcL (0.0-1.3); Monocytes % 7.8 %; Neutrophils # 7.7 K/mcL (1.6-8.9); Platelet Count 273 K/mcL (140-400); Red Blood Count 5.61 M/mcL (4.19-5.50); Red Cell Distribution Width 16.8 % (11.5-14.5); Segmented Neutrophils % 68.5 %; White Blood Count 11.3 K/mcL (4.3-11.1)
[2019-11-18 13:58] LABS: Alanine Aminotransferase 21 Units/L (7-52); Albumin 3.9 g/dL (3.5-5.7); Albumin/Globulin Ratio 1.3 (1.1-2.2); Alkaline Phosphatase 119 Units/L (34-104); Aspartate Amino Transferase 37 Units/L (13-39); BUN/Creatinine Ratio 21 (6-26); Bilirubin,Total 0.9 mg/dL (0.3-1.0); Blood Urea Nitrogen 24 mg/dL (8-23); Calcium 9.6 mg/dL (8.6-10.3); Carbon Dioxide 28 mEq/L (23-29); Chloride 97 mEq/L (98-107); Globulin 2.9 g/dL (2.4-3.5); Glucose 183 mg/dL (70-105); Osmolality,Calculated 295 (280-300); Potassium 3.3 mEq/L (3.5-5.1); Sodium 138 mEq/L (136-145); Total Protein 6.8 g/dL (6.4-8.9); Troponin I 0.03 ng/mL (< 0.04); eGFR For African Americans > 60 (> 60); eGFR For Non-African Americans > 60 (> 60)
[2019-11-18 14:35] LABS: INR 1.9; Prothrombin Time 21.7 Seconds (9.4-12.1)
[2019-11-18] MEDS ORDERED: Naloxone 0.4 MG/ML INJ IVP PRN (14:54)
[2019-11-18] MEDS ORDERED: Ondansetron 4 MG/2 ML VIAL IVP PRN (14:54)
[2019-11-18] MEDS ORDERED: *HR* Dextrose 50 % in Water (Syg) 50 ML SYRINGE IVP PRN (14:57)
[2019-11-18] MEDS ORDERED: Dextrose Gel 15 GM/37.5 ML TUBE PO PRN ×2 (14:57)
[2019-11-18] MEDS ORDERED: D5% in Water 1,000 ML IVC PRN (14:57)
[2019-11-18] MEDS ORDERED: Potassium Chloride 20 MEQ, Lidocaine 1% 2 ML in 0.9 % Sodium Chloride 250 ML IVPB ONE (15:45)
[2019-11-18] MEDS ORDERED: Furosemide 40 MG/4 ML VIAL IVP ONE (15:52)
[2019-11-18] MEDS ORDERED: Budesonide/Formoterol 80/4.5 1 PUFF INH IH PRN (16:10)
[2019-11-18] MEDS: Metoprolol XL (24 HR) Succ 50 MG TAB.ER.24H PO SCH (17:50)
[2019-11-18] MEDS: Furosemide 40 MG/4 ML VIAL IVP SCH (17:50)
[2019-11-18] MEDS: Insulin LISPRO 300 UNITS/3 ML VIAL SQ SCH ×2 (17:50→21:05)
[2019-11-18] MEDS ORDERED: *HR* Warfarin 3 MG TABLET PO ONE (18:00)
[2019-11-18] MEDS ORDERED: Warfarin perPT PO PRN (18:00)
[2019-11-18] MEDS ORDERED: Insulin DETEMIR 100 UNIT/ML X5UNITS SQ SCH (21:00)
[2019-11-19 03:22] LABS: Prothrombin Time 23.3 Seconds (9.4-12.1)
[2019-11-19 03:51] LABS: BUN/Creatinine Ratio 21 (6-26); Blood Urea Nitrogen 24 mg/dL (8-23); Calcium 9.3 mg/dL (8.6-10.3); Carbon Dioxide 30 mEq/L (23-29); Chloride 98 mEq/L (98-107); Glucose 59 mg/dL (70-105); Osmolality,Calculated 290 (280-300); Potassium 3.5 mEq/L (3.5-5.1); Sodium 139 mEq/L (136-145); eGFR For African Americans > 60 (> 60); eGFR For Non-African Americans > 60 (> 60)
[2019-11-19 04:26] LABS: Basophils # 0.1 K/mcL (0.0-0.2); Basophils % 0.6 %; Eosinophils # 0.1 K/mcL (0.0-0.6); Eosinophils % 0.6 %; Hematocrit 53.5 % (37.5-50.1); Hemoglobin 18.4 g/dL (12.9-16.9); Immature Granulocytes % 0.2 % (0-4); Lymphocytes # 3.8 K/mcL (0.6-4.6); Lymphocytes % 30.4 %; Mean Corpuscular HGB Conc 34.4 g/dL (31.6-35.5); Mean Corpuscular Hemoglobin 33.3 pg (28.0-33.3); Mean Corpuscular Volume 96.7 fL (83.0-100.0); Monocytes # 1.2 K/mcL (0.0-1.3); Monocytes % 9.6 %; Neutrophils # 7.3 K/mcL (1.6-8.9); Platelet Count 273 K/mcL (140-400); Red Blood Count 5.53 M/mcL (4.19-5.50); Red Cell Distribution Width 16.4 % (11.5-14.5); Segmented Neutrophils % 58.6 %; White Blood Count 12.5 K/mcL (4.3-11.1)
[2019-11-19] MEDS: Insulin LISPRO 300 UNITS/3 ML VIAL SQ SCH ×4 (07:35→19:23)
[2019-11-19] MEDS: Metoprolol XL (24 HR) Succ 50 MG TAB.ER.24H PO SCH (08:39)
[2019-11-19] MEDS: Furosemide 40 MG/4 ML VIAL IVP SCH ×2 (08:39→16:58)
[2019-11-19] MEDS: allopurinoL 300 MG TABLET PO SCH (08:39)
[2019-11-19] MEDS: DilTIAZem CD (24hr) 120 MG CAP.ER.24H PO SCH (08:40)
[2019-11-19] MEDS: Aspirin Enteric Coated 81 MG Tablet PO SCH (08:40)
[2019-11-19] MEDS ORDERED: *HR* Warfarin 3 MG TABLET PO ONE (18:00)
[2019-11-19] MEDS: Insulin DETEMIR 100 UNIT/ML X5UNITS SQ SCH (21:13)
[2019-11-20 05:34] LABS: INR 2.2; Prothrombin Time 24.5 Seconds (9.4-12.1)
[2019-11-20] MEDS: Insulin LISPRO 300 UNITS/3 ML VIAL SQ SCH ×4 (07:31→21:01)
[2019-11-20] MEDS: allopurinoL 300 MG TABLET PO SCH (08:45)
[2019-11-20] MEDS: Metoprolol XL (24 HR) Succ 50 MG TAB.ER.24H PO SCH (08:45)
[2019-11-20] MEDS: Aspirin Enteric Coated 81 MG Tablet PO SCH (08:45)
[2019-11-20] MEDS: Furosemide 40 MG/4 ML VIAL IVP SCH (08:46)
[2019-11-20] MEDS: DilTIAZem CD (24hr) 120 MG CAP.ER.24H PO SCH (08:46)
[2019-11-20 09:43] LABS: Basophils # 0.1 K/mcL (0.0-0.2); Basophils % 0.5 %; Eosinophils % 0.2 %; Hemoglobin 18.7 g/dL (12.9-16.9); Immature Granulocytes % 0.4 % (0-4); Lymphocytes # 2.7 K/mcL (0.6-4.6); Lymphocytes % 20.4 %; Mean Corpuscular HGB Conc 33.9 g/dL (31.6-35.5); Mean Corpuscular Hemoglobin 32.8 pg (28.0-33.3); Mean Corpuscular Volume 96.7 fL (83.0-100.0); Mean Platelet Volume 11.3 fL (9.4-12.4); Monocytes % 7.8 %; Neutrophils # 9.4 K/mcL (1.6-8.9); Platelet Count 303 K/mcL (140-400); Red Cell Distribution Width 16.4 % (11.5-14.5); Segmented Neutrophils % 70.7 %; White Blood Count 13.3 K/mcL (4.3-11.1)
[2019-11-20 09:49] LABS: Hematocrit 55.1 % (37.5-50.1)
[2019-11-20 10:01] LABS: Calcium 9.6 mg/dL (8.6-10.3); Potassium 3.8 mEq/L (3.5-5.1)
[2019-11-20] MEDS ORDERED: Albumin 25% 25gram/100mL 25 GM/100 ML IV.SOLN IVPB ONE (11:00)
[2019-11-20] MEDS ORDERED: *HR* Warfarin 3 MG TABLET PO ONE (18:00)
[2019-11-20] MEDS: Insulin DETEMIR 100 UNIT/ML X5UNITS SQ SCH (21:02)
[2019-11-20] MEDS: Latanoprost 2.5 ML BOTTLE BOTH EYES SCH (21:13)
[2019-11-21 07:15] LABS: Basophils # 0.1 K/mcL (0.0-0.2); Basophils % 0.4 %; Eosinophils % 0.3 %; Hematocrit 51.9 % (37.5-50.1); Hemoglobin 17.7 g/dL (12.9-16.9); Immature Granulocytes % 0.4 % (0-4); Lymphocytes % 19.7 %; Mean Corpuscular HGB Conc 34.1 g/dL (31.6-35.5); Mean Corpuscular Volume 96.6 fL (83.0-100.0); Mean Platelet Volume 11.3 fL (9.4-12.4); Monocytes # 1.4 K/mcL (0.0-1.3); Monocytes % 9.1 %; Neutrophils # 10.6 K/mcL (1.6-8.9); Platelet Count 305 K/mcL (140-400); Red Blood Count 5.37 M/mcL (4.19-5.50); Segmented Neutrophils % 70.1 %; White Blood Count 15.1 K/mcL (4.3-11.1)
[2019-11-21 07:22] LABS: INR 2.2; Prothrombin Time 24.5 Seconds (9.4-12.1)
[2019-11-21 07:27] LABS: Calcium 9.8 mg/dL (8.6-10.3); Potassium 3.4 mEq/L (3.5-5.1)
[2019-11-21] MEDS: Insulin LISPRO 300 UNITS/3 ML VIAL SQ SCH ×4 (07:28→20:18)
[2019-11-21] MEDS: Metoprolol XL (24 HR) Succ 50 MG TAB.ER.24H PO SCH (08:16)
[2019-11-21] MEDS: DilTIAZem CD (24hr) 120 MG CAP.ER.24H PO SCH (08:17)
[2019-11-21] MEDS: Aspirin Enteric Coated 81 MG Tablet PO SCH (08:17)
[2019-11-21] MEDS: allopurinoL 300 MG TABLET PO SCH (08:17)
[2019-11-21] MEDS ORDERED: Albumin 25% 25gram/100mL 25 GM/100 ML IV.SOLN IVPB ONE (09:57)
[2019-11-21] MEDS ORDERED: cefTRIAXone 1,000 MG in Water for inj. (sterile) 10 ML IVP SCH (11:00)
[2019-11-21] MEDS ORDERED: MethylPREDNISolone 40 MG/ML VIAL IVP SCH (12:00)
[2019-11-21] MEDS: Azithromycin 500 MG in 0.9 % Sodium Chloride 250 ML IVPB SCH (12:30)
[2019-11-21] MEDS: Furosemide 40 MG/4 ML VIAL IVP SCH (12:32)
[2019-11-21] MEDS ORDERED: Isovue-370 500 ML BOTTLE IVP ONE (13:24)
[2019-11-21] MEDS: Piperacillin/Tazobactam 3.375 GM in 0.9 % Sodium Chloride Mini Bag 100 ML IVPB SCH ×2 (14:42→21:52)
[2019-11-21] MEDS ORDERED: Perflutren Lipid Microsphere 1.3 ML in 0.9 % Sodium Chloride 8.7 ML IVP ONE (16:25)
[2019-11-21 16:50] LABS: Bilirubin,Urine Negative (Negative); Blood,Urine Negative (Negative); Clarity,Urine Clear (Clear); Color,Urine Yellow (Yellow); Glucose,Urine (UA) Normal (Normal); Ketones,Urine Negative (Negative); Leukocyte Esterase,Urine Moderate (Negative); Nitrite,Urine Negative (Negative); PH,Urine 5.5 pH Units (5.0-8.0); Protein,Urine Negative (Neg-Trace); Specific Gravity,Urine 1.015 (1.010-1.025); Urobilinogen,Urine Normal (Normal)
[2019-11-21 16:52] LABS: Bacteria,Urine None Seen per hpf (None-Few); Hyaline Casts,Urine None Seen per lpf (None-Few); RBC,Urine 0-3 per hpf (0-3); Squamous Epithelial Cell,Urine Few per lpf (None-Few); WBC,Urine 0-3 per hpf (0-3)
[2019-11-21 17:10] LABS: Sodium, Urine 38.2 mEq/L
[2019-11-21 18:00] LABS: Appearance of Pleural Fl Cloudy (Clear)
[2019-11-21] MEDS ORDERED: *HR* Warfarin 3 MG TABLET PO ONE (18:00)
[2019-11-21 18:17] LABS: Amylase,Pleural Fluid 590 Units/L (No Ref Range); Glucose,Pleural Fluid 18 mg/dL (No Ref Range); LDH,Pleural Fluid > 1200 Units/L (No Ref Range); Total Protein,Pleural Fluid 5.5 g/dL
[2019-11-21 18:21] LABS: RBC,Pleural Fluid 0.011 M/mcL
[2019-11-21 19:41] LABS: Basophils,Pleural Fluid 0 %; Eosinophils,Pleural Fluid 0 %; Monocytes,Pleural Fluid 0 %
[2019-11-21] MEDS: Insulin DETEMIR 100 UNIT/ML X5UNITS SQ SCH (20:17)
[2019-11-21] MEDS: Latanoprost 2.5 ML BOTTLE BOTH EYES SCH (20:18)
[2019-11-22] MEDS: Piperacillin/Tazobactam 3.375 GM in 0.9 % Sodium Chloride Mini Bag 100 ML IVPB SCH ×3 (05:11→22:28)
[2019-11-22 06:40] LABS: Basophils % 0.1 %; Hemoglobin 16.3 g/dL (12.9-16.9); Immature Granulocytes % 0.5 % (0-4); Lymphocytes # 1.7 K/mcL (0.6-4.6); Lymphocytes % 15.3 %; Mean Corpuscular Hemoglobin 32.3 pg (28.0-33.3); Mean Corpuscular Volume 95.2 fL (83.0-100.0); Mean Platelet Volume 11.3 fL (9.4-12.4); Monocytes # 0.5 K/mcL (0.0-1.3); Monocytes % 4.1 %; Neutrophils # 8.9 K/mcL (1.6-8.9); Platelet Count 296 K/mcL (140-400); Red Blood Count 5.04 M/mcL (4.19-5.50); Red Cell Distribution Width 15.8 % (11.5-14.5); White Blood Count 11.1 K/mcL (4.3-11.1)
[2019-11-22 06:41] LABS: INR 2.2; Prothrombin Time 24.5 Seconds (9.4-12.1)
[2019-11-22 06:51] LABS: Calcium 9.2 mg/dL (8.6-10.3); Potassium 3.7 mEq/L (3.5-5.1)
[2019-11-22] MEDS: Furosemide 40 MG/4 ML VIAL IVP SCH (07:59)
[2019-11-22] MEDS: allopurinoL 300 MG TABLET PO SCH (08:01)
[2019-11-22] MEDS: Aspirin Enteric Coated 81 MG Tablet PO SCH (08:01)
[2019-11-22] MEDS: DilTIAZem CD (24hr) 120 MG CAP.ER.24H PO SCH (08:01)
[2019-11-22] MEDS: Metoprolol XL (24 HR) Succ 50 MG TAB.ER.24H PO SCH (08:01)
[2019-11-22] MEDS: Insulin LISPRO 300 UNITS/3 ML VIAL SQ SCH ×4 (08:04→22:27)
[2019-11-22] MEDS: Azithromycin 500 MG in 0.9 % Sodium Chloride 250 ML IVPB SCH (09:28)
[2019-11-22] MEDS: Gabapentin 300 MG CAPSULE PO SCH (12:07)
[2019-11-22] MEDS: Insulin DETEMIR 100 UNIT/ML X5UNITS SQ SCH (22:28)
[2019-11-22] MEDS: Latanoprost 2.5 ML BOTTLE BOTH EYES SCH (22:28)
[2019-11-23] MEDS: Piperacillin/Tazobactam 3.375 GM in 0.9 % Sodium Chloride Mini Bag 100 ML IVPB SCH ×3 (05:29→21:28)
[2019-11-23 06:36] LABS: INR 2.1; Prothrombin Time 23.8 Seconds (9.4-12.1)
[2019-11-23 07:00] LABS: Potassium 3.4 mEq/L (3.5-5.1)
[2019-11-23] MEDS: Insulin LISPRO 300 UNITS/3 ML VIAL SQ SCH ×4 (07:42→21:20)
[2019-11-23] MEDS: Metoprolol XL (24 HR) Succ 50 MG TAB.ER.24H PO SCH (10:00)
[2019-11-23] MEDS: Furosemide 40 MG/4 ML VIAL IVP SCH (10:00)
[2019-11-23] MEDS: Azithromycin 500 MG in 0.9 % Sodium Chloride 250 ML IVPB SCH (10:00)
[2019-11-23] MEDS: Aspirin Enteric Coated 81 MG Tablet PO SCH (10:00)
[2019-11-23] MEDS: allopurinoL 300 MG TABLET PO SCH (10:00)
[2019-11-23] MEDS: Gabapentin 300 MG CAPSULE PO SCH (10:00)
[2019-11-23] MEDS: DilTIAZem CD (24hr) 120 MG CAP.ER.24H PO SCH (10:00)
[2019-11-23] MEDS ORDERED: *HR* Warfarin 3 MG TABLET PO ONE (18:00)
[2019-11-23] MEDS: Latanoprost 2.5 ML BOTTLE BOTH EYES SCH (21:28)
[2019-11-23] MEDS: Insulin DETEMIR 100 UNIT/ML X5UNITS SQ SCH (21:32)
[2019-11-24 04:48] LABS: Basophils # 0.1 K/mcL (0.0-0.2); Basophils % 0.4 %; Eosinophils % 0.1 %; Hematocrit 47.9 % (37.5-50.1); Hemoglobin 16.1 g/dL (12.9-16.9); Immature Granulocytes % 0.4 % (0-4); Lymphocytes # 3.2 K/mcL (0.6-4.6); Lymphocytes % 22.5 %; Mean Corpuscular HGB Conc 33.6 g/dL (31.6-35.5); Mean Corpuscular Hemoglobin 32.6 pg (28.0-33.3); Monocytes # 1.4 K/mcL (0.0-1.3); Monocytes % 9.9 %; Neutrophils # 9.4 K/mcL (1.6-8.9); Platelet Count 259 K/mcL (140-400); Red Blood Count 4.94 M/mcL (4.19-5.50); Red Cell Distribution Width 15.9 % (11.5-14.5); Segmented Neutrophils % 66.7 %
[2019-11-24 04:53] LABS: INR 1.9; Prothrombin Time 21.6 Seconds (9.4-12.1)
[2019-11-24 05:03] LABS: BUN/Creatinine Ratio 29 (6-26); Blood Urea Nitrogen 39 mg/dL (8-23); Calcium 8.9 mg/dL (8.6-10.3); Carbon Dioxide 30 mEq/L (23-29); Chloride 101 mEq/L (98-107); Glucose 123 mg/dL (70-105); Osmolality,Calculated 299 (280-300); Potassium 3.3 mEq/L (3.5-5.1); Sodium 139 mEq/L (136-145); eGFR For African Americans > 60 (> 60); eGFR For Non-African Americans 51 (> 60)
[2019-11-24] MEDS: Piperacillin/Tazobactam 3.375 GM in 0.9 % Sodium Chloride Mini Bag 100 ML IVPB SCH ×3 (05:51→22:03)
[2019-11-24] MEDS: Insulin LISPRO 300 UNITS/3 ML VIAL SQ SCH ×4 (07:53→22:04)
[2019-11-24] MEDS: Metoprolol XL (24 HR) Succ 50 MG TAB.ER.24H PO SCH (08:08)
[2019-11-24] MEDS: allopurinoL 300 MG TABLET PO SCH (08:08)
[2019-11-24] MEDS: Furosemide 40 MG/4 ML VIAL IVP SCH (08:08)
[2019-11-24] MEDS: Azithromycin 500 MG in 0.9 % Sodium Chloride 250 ML IVPB SCH (08:08)
[2019-11-24] MEDS: DilTIAZem CD (24hr) 120 MG CAP.ER.24H PO SCH (08:08)
[2019-11-24] MEDS: Aspirin Enteric Coated 81 MG Tablet PO SCH (08:08)
[2019-11-24] MEDS: Gabapentin 300 MG CAPSULE PO SCH (08:08)
[2019-11-24 09:57] LABS: Prothrombin Time 22.4 Seconds (9.4-12.1)
[2019-11-24] MEDS: Ipratropium/Albuterol Neb 3 ML IH PRN (11:01)
[2019-11-24] MEDS ORDERED: *HR* Phytonadione 5 MG TABLET PO ONE (11:08)
[2019-11-24 19:17] LABS: INR 1.8; Prothrombin Time 20.8 Seconds (9.4-12.1)
[2019-11-24] MEDS ORDERED: Insulin DETEMIR 100 UNIT/ML X5UNITS SQ SCH (21:00)
[2019-11-24] MEDS: Latanoprost 2.5 ML BOTTLE BOTH EYES SCH (22:02)
[2019-11-25] MEDS: Piperacillin/Tazobactam 3.375 GM in 0.9 % Sodium Chloride Mini Bag 100 ML IVPB SCH ×3 (05:09→21:01)
[2019-11-25 05:25] LABS: INR 1.6
[2019-11-25] MEDS: Insulin LISPRO 300 UNITS/3 ML VIAL SQ SCH ×4 (07:40→21:08)
[2019-11-25 07:41] LABS: Basophils # 0.1 K/mcL (0.0-0.2); Basophils % 0.5 %; Eosinophils # 0.1 K/mcL (0.0-0.6); Eosinophils % 0.4 %; Hematocrit 49.1 % (37.5-50.1); Hemoglobin 16.7 g/dL (12.9-16.9); Immature Granulocytes % 0.5 % (0-4); Lymphocytes # 3.4 K/mcL (0.6-4.6); Lymphocytes % 22.7 %; Mean Platelet Volume 12.1 fL (9.4-12.4); Monocytes # 1.5 K/mcL (0.0-1.3); Monocytes % 10.2 %; Neutrophils # 9.8 K/mcL (1.6-8.9); Platelet Count 221 K/mcL (140-400); Red Blood Count 5.06 M/mcL (4.19-5.50); Red Cell Distribution Width 15.7 % (11.5-14.5); Segmented Neutrophils % 65.7 %
[2019-11-25] MEDS: Ipratropium/Albuterol Neb 3 ML IH PRN (08:12)
[2019-11-25] MEDS: Furosemide 40 MG/4 ML VIAL IVP SCH (08:52)
[2019-11-25] MEDS ORDERED: Ondansetron 4 MG/2 ML VIAL ONE (09:39)
[2019-11-25] MEDS ORDERED: Dexamethasone 4 MG/ML VIAL ONE (09:39)
[2019-11-25] MEDS ORDERED: *HR* FentaNYL (PF) 100 MCG/2 ML VIAL ONE (09:39)
[2019-11-25] MEDS ORDERED: Lidocaine -MPF 2% 2 ML VIAL ONE (09:39)
[2019-11-25] MEDS ORDERED: *HR* Propofol 200 MG/20 ML VIAL IVP ONE (09:39)
[2019-11-25 10:06] LABS: BUN/Creatinine Ratio 27 (6-26); Blood Urea Nitrogen 32 mg/dL (8-23); Calcium 9.2 mg/dL (8.6-10.3); Carbon Dioxide 29 mEq/L (23-29); Chloride 103 mEq/L (98-107); Glucose 131 mg/dL (70-105); Magnesium 1.9 mg/dL (1.6-2.6); Osmolality,Calculated 301 (280-300); Potassium 3.8 mEq/L (3.5-5.1); Sodium 141 mEq/L (136-145); eGFR For African Americans > 60 (> 60); eGFR For Non-African Americans 59 (> 60)
[2019-11-25] MEDS ORDERED: *HR* Labetalol 20 MG/4 ML SYRINGE IVP ONE ×2 (11:48)
[2019-11-25] MEDS: DilTIAZem CD (24hr) 120 MG CAP.ER.24H PO SCH (12:32)
[2019-11-25] MEDS: Gabapentin 300 MG CAPSULE PO SCH (12:32)
[2019-11-25] MEDS: allopurinoL 300 MG TABLET PO SCH (12:32)
[2019-11-25] MEDS: Aspirin Enteric Coated 81 MG Tablet PO SCH (12:33)
[2019-11-25] MEDS: Azithromycin 250 MG TABLET PO SCH (12:33)
[2019-11-25] MEDS: Metoprolol XL (24 HR) Succ 50 MG TAB.ER.24H PO SCH (12:33)
[2019-11-25 16:08] LABS: Lactate Dehydrogenase 519 Units/L (140-271); Total Protein 6.3 g/dL (6.4-8.9)
[2019-11-25 17:34] LABS: Appearance of Body Fluid Clear (Clear); Appearance of Body Fluid Slightly Hazy (Clear); Volume of Body Fluid 10 mL
[2019-11-25 17:35] LABS: Volume of Body Fluid 10 mL
[2019-11-25 20:32] LABS: Amylase,Pleural Fluid 303 Units/L (No Ref Range); Glucose,Pleural Fluid 101 mg/dL (No Ref Range); LDH,Pleural Fluid > 1200 Units/L (No Ref Range); Total Protein,Pleural Fluid 4.2 g/dL
[2019-11-25 20:49] LABS: RBC,Pleural Fluid 0.115 M/mcL
[2019-11-25] MEDS: Insulin DETEMIR 100 UNIT/ML X5UNITS SQ SCH (21:07)
[2019-11-25] MEDS: Latanoprost 2.5 ML BOTTLE BOTH EYES SCH (21:08)
[2019-11-25 21:31] LABS: Appearance of Pleural Fl Bloody (Clear); Basophils,Pleural Fluid 0 %; Eosinophils,Pleural Fluid 0 %; Monocytes,Pleural Fluid 0 %
[2019-11-26] MEDS: Piperacillin/Tazobactam 3.375 GM in 0.9 % Sodium Chloride Mini Bag 100 ML IVPB SCH ×3 (05:14→22:28)
[2019-11-26] MEDS: Gabapentin 300 MG CAPSULE PO SCH (07:48)
[2019-11-26] MEDS: DilTIAZem CD (24hr) 120 MG CAP.ER.24H PO SCH (07:48)
[2019-11-26] MEDS: Furosemide 40 MG/4 ML VIAL IVP SCH (07:48)
[2019-11-26] MEDS: Metoprolol XL (24 HR) Succ 50 MG TAB.ER.24H PO SCH (07:48)
[2019-11-26] MEDS: Aspirin Enteric Coated 81 MG Tablet PO SCH (07:48)
[2019-11-26] MEDS: Azithromycin 250 MG TABLET PO SCH (07:48)
[2019-11-26] MEDS: allopurinoL 300 MG TABLET PO SCH (07:48)
[2019-11-26] MEDS: Insulin LISPRO 300 UNITS/3 ML VIAL SQ SCH ×4 (07:49→22:20)
[2019-11-26 08:00] LABS: INR 1.1; Prothrombin Time 12.8 Seconds (9.4-12.1)
[2019-11-26 08:09] LABS: Basophils % 0.1 %; Hematocrit 48.7 % (37.5-50.1); Hemoglobin 16.3 g/dL (12.9-16.9); Immature Granulocytes % 0.5 % (0-4); Lymphocytes # 1.6 K/mcL (0.6-4.6); Lymphocytes % 13.6 %; Mean Corpuscular HGB Conc 33.5 g/dL (31.6-35.5); Mean Corpuscular Hemoglobin 33.3 pg (28.0-33.3); Mean Corpuscular Volume 99.4 fL (83.0-100.0); Mean Platelet Volume 11.5 fL (9.4-12.4); Monocytes # 0.5 K/mcL (0.0-1.3); Neutrophils # 9.3 K/mcL (1.6-8.9); Platelet Count 252 K/mcL (140-400); Red Cell Distribution Width 16.2 % (11.5-14.5); Segmented Neutrophils % 81.8 %; White Blood Count 11.4 K/mcL (4.3-11.1)
[2019-11-26] MEDS ORDERED: *HR* Heparin 5,000 UNIT/ML VIAL IVP PRN ×2 (08:11)
[2019-11-26 08:12] LABS: Calcium 9.3 mg/dL (8.6-10.3); Potassium 4.1 mEq/L (3.5-5.1)
[2019-11-26] MEDS: Heparin 25,000 UNIT/250 ML D5W 25,000 UNIT/250 ML IV.SOLN IVC SCH (11:23)
[2019-11-26] MEDS ORDERED: *HR* Warfarin 4 MG TABLET PO ONE (18:00)
[2019-11-26] MEDS ORDERED: Warfarin perPT PO PRN (18:00)
[2019-11-26] MEDS: Latanoprost 2.5 ML BOTTLE BOTH EYES SCH (22:20)
[2019-11-26] MEDS: Insulin DETEMIR 100 UNIT/ML X5UNITS SQ SCH (22:22)
[2019-11-27 03:10] LABS: INR 1.1; Prothrombin Time 12.9 Seconds (9.4-12.1)
[2019-11-27 03:27] LABS: Calcium 8.6 mg/dL (8.6-10.3); Potassium 3.7 mEq/L (3.5-5.1)
[2019-11-27 03:37] LABS: Basophils % 0.1 %; Hematocrit 45.6 % (37.5-50.1); Immature Granulocytes % 0.6 % (0-4); Lymphocytes # 1.9 K/mcL (0.6-4.6); Lymphocytes % 12.3 %; Mean Corpuscular HGB Conc 33.6 g/dL (31.6-35.5); Mean Corpuscular Hemoglobin 33.1 pg (28.0-33.3); Mean Corpuscular Volume 98.7 fL (83.0-100.0); Mean Platelet Volume 12.3 fL (9.4-12.4); Monocytes % 6.6 %; Platelet Count 210 K/mcL (140-400); Red Blood Count 4.62 M/mcL (4.19-5.50); Red Cell Distribution Width 16.1 % (11.5-14.5); Segmented Neutrophils % 80.4 %; White Blood Count 15.7 K/mcL (4.3-11.1)
[2019-11-27 03:38] LABS: Hemoglobin 15.3 g/dL (12.9-16.9); Neutrophils # 12.6 K/mcL (1.6-8.9)
[2019-11-27] MEDS: Insulin LISPRO 300 UNITS/3 ML VIAL SQ SCH ×4 (07:47→21:47)
[2019-11-27] MEDS: Aspirin Enteric Coated 81 MG Tablet PO SCH (08:51)
[2019-11-27] MEDS: allopurinoL 300 MG TABLET PO SCH (08:51)
[2019-11-27] MEDS: Gabapentin 300 MG CAPSULE PO SCH (08:51)
[2019-11-27] MEDS: DilTIAZem CD (24hr) 120 MG CAP.ER.24H PO SCH (08:51)
[2019-11-27] MEDS: Piperacillin/Tazobactam 3.375 GM in 0.9 % Sodium Chloride Mini Bag 100 ML IVPB SCH ×2 (08:51→16:42)
[2019-11-27] MEDS: Metoprolol XL (24 HR) Succ 50 MG TAB.ER.24H PO SCH (08:51)
[2019-11-27] MEDS ORDERED: Furosemide 40 MG TABLET PO SCH (09:00)
[2019-11-27] MEDS: Heparin 25,000 UNIT/250 ML D5W 25,000 UNIT/250 ML IV.SOLN IVC SCH (12:00)
[2019-11-27] MEDS: Ipratropium/Albuterol Neb 3 ML IH PRN (14:53)
[2019-11-27] MEDS: *HR* Enoxaparin 100 MG/ML SYRINGE SQ SCH (17:33)
[2019-11-27] MEDS ORDERED: *HR* Warfarin 3 MG TABLET PO ONE (18:00)
[2019-11-27 21:01] LABS: Fluid Source for CEA PLEURAL FLUID
[2019-11-27] MEDS: Ipratropium/Albuterol Neb 3 ML IH SCH (21:36)
[2019-11-27] MEDS: Budesonide/Formoterol 80/4.5 1 PUFF INH IH SCH (21:36)
[2019-11-27] MEDS: Latanoprost 2.5 ML BOTTLE BOTH EYES SCH (21:46)
[2019-11-27] MEDS: Doxycycline 100 MG CAPSULE PO SCH (21:46)
[2019-11-27] MEDS: Insulin DETEMIR 100 UNIT/ML X5UNITS SQ SCH (21:48)
[2019-11-28 02:03] LABS: Basophils % 0.1 %; Eosinophils % 0.1 %; Hematocrit 48.5 % (37.5-50.1); Hemoglobin 15.8 g/dL (12.9-16.9); INR 1.2; Immature Granulocytes % 0.6 % (0-4); Lymphocytes # 2.4 K/mcL (0.6-4.6); Lymphocytes % 15.8 %; Mean Corpuscular HGB Conc 32.6 g/dL (31.6-35.5); Mean Corpuscular Hemoglobin 32.4 pg (28.0-33.3); Mean Corpuscular Volume 99.4 fL (83.0-100.0); Monocytes # 1.4 K/mcL (0.0-1.3); Monocytes % 9.1 %; Neutrophils # 11.1 K/mcL (1.6-8.9); Platelet Count 243 K/mcL (140-400); Prothrombin Time 13.4 Seconds (9.4-12.1); Red Blood Count 4.88 M/mcL (4.19-5.50); Red Cell Distribution Width 16.1 % (11.5-14.5); Segmented Neutrophils % 74.3 %
[2019-11-28 02:19] LABS: BUN/Creatinine Ratio 31 (6-26); Blood Urea Nitrogen 40 mg/dL (8-23); Calcium 8.8 mg/dL (8.6-10.3); Carbon Dioxide 32 mEq/L (23-29); Chloride 99 mEq/L (98-107); Glucose 154 mg/dL (70-105); Osmolality,Calculated 303 (280-300); Potassium 3.7 mEq/L (3.5-5.1); Sodium 140 mEq/L (136-145); eGFR For African Americans > 60 (> 60); eGFR For Non-African Americans 53 (> 60)
[2019-11-28] MEDS: Ipratropium/Albuterol Neb 3 ML IH SCH ×4 (05:09→21:47)
[2019-11-28] MEDS: *HR* Enoxaparin 100 MG/ML SYRINGE SQ SCH (05:54)
[2019-11-28] MEDS: Insulin LISPRO 300 UNITS/3 ML VIAL SQ SCH ×4 (08:28→20:46)
[2019-11-28] MEDS: DilTIAZem CD (24hr) 120 MG CAP.ER.24H PO SCH (09:16)
[2019-11-28] MEDS: Doxycycline 100 MG CAPSULE PO SCH ×2 (09:16→20:50)
[2019-11-28] MEDS: Gabapentin 300 MG CAPSULE PO SCH (09:17)
[2019-11-28] MEDS: allopurinoL 300 MG TABLET PO SCH (09:17)
[2019-11-28] MEDS: Aspirin Enteric Coated 81 MG Tablet PO SCH (09:17)
[2019-11-28] MEDS: Metoprolol XL (24 HR) Succ 50 MG TAB.ER.24H PO SCH (09:17)
[2019-11-28] MEDS: Furosemide 40 MG TABLET PO SCH (09:17)
[2019-11-28] MEDS: Budesonide/Formoterol 80/4.5 1 PUFF INH IH SCH ×2 (10:16→21:49)
[2019-11-28] MEDS ORDERED: Furosemide 40 MG TABLET PO ONE (14:40)
[2019-11-28] MEDS: Apixaban 5 MG TABLET PO SCH (17:05)
[2019-11-28] MEDS: Latanoprost 2.5 ML BOTTLE BOTH EYES SCH (20:50)
[2019-11-28] MEDS: Insulin DETEMIR 100 UNIT/ML X5UNITS SQ SCH (20:50)
[2019-11-28 23:05] LABS: Influenza A PCR Body Fluid NOT DETECTED; Influenza B PCR Body Fluid NOT DETECTED; RVP Body Fluid Source BAL
[2019-11-29] MEDS: Apixaban 5 MG TABLET PO SCH ×2 (03:12→16:04)
[2019-11-29] MEDS: Ipratropium/Albuterol Neb 3 ML IH SCH ×4 (03:14→21:50)
[2019-11-29 07:17] LABS: Basophils % 0.1 %; Eosinophils % 0.1 %; Hematocrit 48.7 % (37.5-50.1); Hemoglobin 16.3 g/dL (12.9-16.9); Immature Granulocytes % 0.6 % (0-4); Lymphocytes # 2.7 K/mcL (0.6-4.6); Lymphocytes % 19.5 %; Mean Corpuscular HGB Conc 33.5 g/dL (31.6-35.5); Mean Corpuscular Hemoglobin 32.6 pg (28.0-33.3); Mean Corpuscular Volume 97.4 fL (83.0-100.0); Mean Platelet Volume 11.5 fL (9.4-12.4); Monocytes # 1.5 K/mcL (0.0-1.3); Monocytes % 11.1 %; Neutrophils # 9.5 K/mcL (1.6-8.9); Platelet Count 235 K/mcL (140-400); Red Cell Distribution Width 16.4 % (11.5-14.5); Segmented Neutrophils % 68.6 %; White Blood Count 13.9 K/mcL (4.3-11.1)
[2019-11-29 07:21] LABS: Prothrombin Time 22.3 Seconds (9.4-12.1)
[2019-11-29 07:38] LABS: BUN/Creatinine Ratio 32 (6-26); Blood Urea Nitrogen 32 mg/dL (8-23); Calcium 9.3 mg/dL (8.6-10.3); Carbon Dioxide 30 mEq/L (23-29); Chloride 99 mEq/L (98-107); Glucose 107 mg/dL (70-105); Osmolality,Calculated 293 (280-300); Potassium 3.4 mEq/L (3.5-5.1); Sodium 138 mEq/L (136-145); eGFR For African Americans > 60 (> 60); eGFR For Non-African Americans > 60 (> 60)
[2019-11-29] MEDS: Insulin LISPRO 300 UNITS/3 ML VIAL SQ SCH ×4 (08:44→21:28)
[2019-11-29] MEDS: Budesonide/Formoterol 80/4.5 1 PUFF INH IH SCH ×2 (09:25→21:50)
[2019-11-29] MEDS: Doxycycline 100 MG CAPSULE PO SCH ×2 (09:34→21:27)
[2019-11-29] MEDS: Aspirin Enteric Coated 81 MG Tablet PO SCH (09:34)
[2019-11-29] MEDS: Metoprolol XL (24 HR) Succ 50 MG TAB.ER.24H PO SCH (09:34)
[2019-11-29] MEDS: DilTIAZem CD (24hr) 120 MG CAP.ER.24H PO SCH (09:34)
[2019-11-29] MEDS: allopurinoL 300 MG TABLET PO SCH (09:34)
[2019-11-29] MEDS: Gabapentin 300 MG CAPSULE PO SCH (09:35)
[2019-11-29] MEDS: Furosemide 40 MG/4 ML VIAL IVP SCH (09:35)
[2019-11-29] MEDS ORDERED: MethylPREDNISolone 40 MG/ML VIAL IVP ONE (09:41)
[2019-11-29] MEDS: Furosemide 40 MG TABLET PO SCH (12:41)
[2019-11-29] MEDS: Latanoprost 2.5 ML BOTTLE BOTH EYES SCH (21:28)
[2019-11-29] MEDS: Insulin DETEMIR 100 UNIT/ML X5UNITS SQ SCH (21:28)
[2019-11-30] MEDS: Apixaban 5 MG TABLET PO SCH ×2 (03:08→17:13)
[2019-11-30] MEDS: Ipratropium/Albuterol Neb 3 ML IH SCH ×4 (03:15→21:53)
[2019-11-30 06:08] LABS: Hematocrit 47.6 % (37.5-50.1); Hemoglobin 15.9 g/dL (12.9-16.9); Immature Granulocytes % 1.1 % (0-4); Lymphocytes # 1.4 K/mcL (0.6-4.6); Lymphocytes % 13.1 %; Mean Corpuscular HGB Conc 33.4 g/dL (31.6-35.5); Mean Corpuscular Hemoglobin 32.7 pg (28.0-33.3); Mean Corpuscular Volume 97.9 fL (83.0-100.0); Monocytes # 0.7 K/mcL (0.0-1.3); Monocytes % 6.4 %; Neutrophils # 8.3 K/mcL (1.6-8.9); Platelet Count 259 K/mcL (140-400); Red Blood Count 4.86 M/mcL (4.19-5.50); Red Cell Distribution Width 16.4 % (11.5-14.5); Segmented Neutrophils % 79.4 %; White Blood Count 10.5 K/mcL (4.3-11.1)
[2019-11-30 06:29] LABS: BUN/Creatinine Ratio 30 (6-26); Blood Urea Nitrogen 40 mg/dL (8-23); Calcium 9.4 mg/dL (8.6-10.3); Carbon Dioxide 30 mEq/L (23-29); Chloride 97 mEq/L (98-107); Glucose 237 mg/dL (70-105); INR 1.6; Osmolality,Calculated 301 (280-300); Sodium 137 mEq/L (136-145); eGFR For African Americans > 60 (> 60); eGFR For Non-African Americans 52 (> 60)
[2019-11-30 08:04] LABS: RSV PCR Body Fluid NOT DETECTED
[2019-11-30] MEDS: Aspirin Enteric Coated 81 MG Tablet PO SCH (08:06)
[2019-11-30] MEDS: Metoprolol XL (24 HR) Succ 50 MG TAB.ER.24H PO SCH (08:06)
[2019-11-30] MEDS: Doxycycline 100 MG CAPSULE PO SCH ×2 (08:06→21:03)
[2019-11-30] MEDS: Gabapentin 300 MG CAPSULE PO SCH (08:06)
[2019-11-30] MEDS: allopurinoL 300 MG TABLET PO SCH (08:06)
[2019-11-30] MEDS: DilTIAZem CD (24hr) 120 MG CAP.ER.24H PO SCH (08:06)
[2019-11-30] MEDS: Insulin LISPRO 300 UNITS/3 ML VIAL SQ SCH ×4 (08:07→21:04)
[2019-11-30] MEDS: Furosemide 40 MG/4 ML VIAL IVP SCH (08:07)
[2019-11-30] MEDS: Budesonide/Formoterol 80/4.5 1 PUFF INH IH SCH ×2 (10:42→21:54)
[2019-11-30] MEDS: Insulin DETEMIR 100 UNIT/ML X5UNITS SQ SCH (21:03)
[2019-11-30] MEDS: Latanoprost 2.5 ML BOTTLE BOTH EYES SCH (21:05)
[2019-12-01] MEDS: Ipratropium/Albuterol Neb 3 ML IH SCH ×3 (04:23→15:46)
[2019-12-01] MEDS: Apixaban 5 MG TABLET PO SCH (04:45)
[2019-12-01] MEDS: Insulin LISPRO 300 UNITS/3 ML VIAL SQ SCH ×2 (07:14→11:45)
[2019-12-01] MEDS: Doxycycline 100 MG CAPSULE PO SCH (07:25)
[2019-12-01] MEDS: Gabapentin 300 MG CAPSULE PO SCH (07:26)
[2019-12-01] MEDS: Metoprolol XL (24 HR) Succ 50 MG TAB.ER.24H PO SCH (07:26)
[2019-12-01] MEDS: DilTIAZem CD (24hr) 120 MG CAP.ER.24H PO SCH (07:26)
[2019-12-01] MEDS: allopurinoL 300 MG TABLET PO SCH (07:26)
[2019-12-01] MEDS: Aspirin Enteric Coated 81 MG Tablet PO SCH (07:26)
[2019-12-01] MEDS ORDERED: Ipratropium/Albuterol Neb 3 ML IH ONE (09:42)
[2019-12-01] MEDS ORDERED: Furosemide 40 MG/4 ML VIAL IVP SCH (10:15)
[2019-12-01] MEDS: Budesonide/Formoterol 80/4.5 1 PUFF INH IH SCH (10:27)
[2019-12-01 11:01] VITALS: BP 122/77
== END 2019-12-01 15:53 | disposition home health service (06) | DRG 291 ==
LOC: 3BNU 12:45 → EMEROOARM 12:45 → 3BNU 16:13 → SUATTDRO 11-20 13:30
PROVIDERS: ADMIT Family Medicine; ATTEND Student in an Organized Health Care Education/Training Program